=== PATIENT | female | born 1945 | race Caucasian/White ===

== ENCOUNTER → 2016-07-29 | Outpatient (CLI) | payer OTHER ==
[~2016-07-29] MED LIST: B COTAB24 PO; CALCTAB5 PO; LACT1TAB4 PO; LPT10 PO; MULT-16 PO; PARO1TAB27 PO; PRED1SUS17 OP; SALI0.6517 NAE; SODI5OIN4 INSTIL; SULF20PO PO; TRIA37.5 PO; [UNRECOGNIZED DRUG - OTHER] INSTIL
[2016-07-29 13:00] LABS: BLOOD UREA NITROGEN 20 mg/dl (7-18); BUN/CREATININE RATIO 27.6 (10-20); CALCIUM 10.1 mg/dl (8.5-10.1); CARBON DIOXIDE 31 mmol/L (21-32); CHLORIDE 99 mmol/L (98-107); CREATININE 0.74 mg/dl (0.60-1.20); GLUCOSE 98 mg/dl (70-99); POTASSIUM 3.3 mmol/L (3.5-5.1); SODIUM 140 mmol/L (136-145)
[2016-07-29 13:26] LABS: ESTIMATED AVERAGE GLUCOSE 114 mg/dl; HA1C FLAG Normal (Normal)
== END | disposition home or self-care (01) ==
LOC: C.LABPVFM 12:32
PROVIDERS: ATTEND Nurse Practitioner
DX: I10 Essential (primary) hypertension (principal); E11.9 Type 2 diabetes mellitus without complications

== ENCOUNTER → 2017-01-13 | Outpatient (CLI) | payer OTHER ==
[2017-01-13 18:41] LABS: ALT/SGPT 27 U/L (12-78); AST/SGOT 17 U/L (15-37); BLOOD UREA NITROGEN 13 mg/dl (7-18); BUN/CREATININE RATIO 19.4 (10-20); CALCIUM 9.2 mg/dl (8.5-10.1); CARBON DIOXIDE 31 mmol/L (21-32); CHLORIDE 101 mmol/L (98-107); CREATININE 0.69 mg/dl (0.60-1.20); GLUCOSE 105 mg/dl (70-99); POTASSIUM 3.3 mmol/L (3.5-5.1); SODIUM 139 mmol/L (136-145)
[2017-01-13 18:51] LABS: ALB/GLOB RATIO 0.8 (0.9-2); ALKALINE PHOSPHATASE 74 U/L (45-117); CHOLESTEROL 180 mg/dl (0-200); CHOLESTEROL/HDL RATIO 3.2; HDL CHOLESTEROL 56 mg/dl; LDL CHOLESTEROL CALCULATED 95 mg/dl; TRIGLYCERIDES 145 mg/dl (0-150); VERY LOW DENSITY LIPOPROT CALC 29 mg/dl
[2017-01-14 06:44] LABS: ESTIMATED AVERAGE GLUCOSE 111 mg/dl; HA1C FLAG Normal (Normal)
== END | disposition home or self-care (01) ==
LOC: C.LABPVFM 15:51
PROVIDERS: ATTEND Nurse Practitioner
DX: I10 Essential (primary) hypertension (principal); I49.1 Atrial premature depolarization; E11.9 Type 2 diabetes mellitus without complications; E78.5 Hyperlipidemia, unspecified

== ENCOUNTER → 2017-04-14 | Outpatient (CLI) | payer OTHER ==
[2017-04-14 13:05] LABS: BLOOD UREA NITROGEN 14 mg/dl (7-18); BUN/CREATININE RATIO 21.1 (10-20); CALCIUM 9.8 mg/dl (8.5-10.1); CARBON DIOXIDE 33 mmol/L (21-32); CHLORIDE 101 mmol/L (98-107); CREATININE 0.64 mg/dl (0.60-1.20); GLUCOSE 112 mg/dl (70-99); POTASSIUM 3.3 mmol/L (3.5-5.1); SODIUM 138 mmol/L (136-145)
--- NOTE | 2017-04-29 06:59 | CODING QUERY MEDICAL NECESSITY ---
CQSUPPORTING DIAGNOSIS NEEDED A supporting diagnosis is required for the test/procedure performed on this patient in order for us to be reimbursed by the patient's insurance. Please provide a supporting diagnosis for the following test/procedure listed below next to the test name along with your signature. *If there is no additional diagnosis for this patient that would support the following test/procedure please document that below next to the test/procedure. Test(s)/Procedure(s) that require a supporting diagnosis: DOS 04/14/17 VITAMIN D TEST Provider Signature: Date: Thank you Shona Baxter [facility] Information Management Once completed, please kindly fax back to [phone] For questions please call [phone]
== END | disposition home or self-care (01) ==
LOC: C.LABPVFM 10:01
PROVIDERS: ATTEND Nurse Practitioner
DX: E87.6 Hypokalemia (principal); I49.1 Atrial premature depolarization

== ENCOUNTER → 2017-04-15 | Outpatient (CLI) | payer OTHER ==
[2017-04-15 17:49] LABS: URINE APPEARANCE CLEAR (CLEAR); URINE BILIRUBIN NEG (NEG); URINE COLOR YELLOW; URINE EPITHELIAL CELL AUTO 20-30 /lpf (0-5); URINE NITRITE NEG (NEG); URINE SPECIFIC GRAVITY 1.018 (1.000-1.030); UROBILINOGEN NEG (NEG); ZZUR CULT IF INDIC CLEAN CATCH NO
[2017-04-15 17:56] LABS: MANUAL MICROSCOPIC REQUIRED? NO; REVIEW REQ? NO
== END | disposition home or self-care (01) ==
LOC: C.LABPVFM 17:49
PROVIDERS: ATTEND Nurse Practitioner
DX: R32 Unspecified urinary incontinence (principal)

== ENCOUNTER → 2017-07-17 | Outpatient (CLI) | payer OTHER ==
[2017-07-17 13:08] LABS: BLOOD UREA NITROGEN 10 mg/dl (7-18); CALCIUM 9.1 mg/dl (8.5-10.1); CARBON DIOXIDE 29 mmol/L (21-32); GLUCOSE 83 mg/dl (70-99); POTASSIUM 3.8 mmol/L (3.5-5.1); SODIUM 137 mmol/L (136-145)
[2017-07-17 13:22] LABS: CREATININE 0.63 mg/dl (0.60-1.20)
== END | disposition home or self-care (01) ==
LOC: C.LABPVFM 11:11
PROVIDERS: ATTEND Nurse Practitioner
DX: I10 Essential (primary) hypertension (principal); E87.6 Hypokalemia

== ENCOUNTER 2018-11-23 09:47 | Inpatient (IN) ==
[2018-11-23] MEDS ORDERED: SODIUM CHLORIDE 0.9% 500 ML IV SCH (10:15)
[2018-11-23 10:48] LABS: Hemoglobin 12.5 g/dL (12.0-16.0); Mean Corpuscular Hgb Conc 33.8 g/dL (32-36); Mean Corpuscular Volume 96.1 fL (80-100); Mean Platelet Volume 9.5 fL (7.4-10.4); Platelet Count 269 K/uL (130-400); RDW Coefficient of Variation 14.5 % (11.5-14.5); RDW Standard Deviation 50.8 fL (36.4-46.3); Red Blood Count 3.85 M/uL (4.2-5.4); White Blood Count 21.76 K/uL (4.8-10.8)
[2018-11-23] MEDS ORDERED: CEFEPIME 2,000 MG/12.5 ML VIAL IV STA (10:49)
--- NOTE | 2018-11-23 10:50 | CT Scan Report ---
CT head/brain wo con CLINICAL HISTORY: 73 years-old Female with ams. Acutely altered mental status TECHNIQUE: Multiple axial CT images of the head were obtained without contrast. A dose lowering tech nique was utilized adhering to the principles of ALARA. CT DOSE: 720.23 mGy.cm COMPARISON: CT head 11/09/2018. FINDINGS: No acute intracranial hemorrhage, midline shift, intracranial mass, hydrocephalus, territorial ischem ia or abnormal extra-axial collection. Age-related involutional changes. Patchy white matter hypodens ities suggest chronic microvascular ischemic disease. Cerebral vascular calcifications noted. The calvarium is intact. Trace bilateral mastoid effusions. Mild mucosal thickening about the parana nancy sinuses. There is a suggested drusen about the right globe, 4 mm. Prior bilateral cataract repair . IMPRESSION: No acute intracranial abnormality. The above report was generated using voice recognition software. It may contain grammatical, syntax o r spelling errors. Electronically signed by: Aldo Osborne M.D. 11/23/2018 10:49 AM
[2018-11-23 10:51] LABS: iSTAT Creatinine 0.7 mg/dl (0.6-1.3); iSTAT Hemoglobin 12.9 g/dl (12.0-16.0); iSTAT Ionized Calcium 1.16 mmol/l (1.12-1.32); iSTAT Potassium 3.4 mEq/L (3.3-5.0)
--- OUTSIDE RECORDS SUMMARY | 2018-11-23 10:56 | External Medical Summary | Continuity of Care Document ---
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) Diet-controlled diabetes mellitus (250.00) (E11.9) Episodic mood disorder (296.90) (F39) Hyperlipidemia (272.4) (E78.5) Shoulder strain (840.9) (S46.919A) Urinary tract infection, acute (599.0) (N39.0) Encounter for immunization (V03.89) (Z23) Plantar fasciitis (728.71) (M72.2) Urinary incontinence (788.30) (R32) Urinary symptom or sign (788.99) (R39.9) PAC (premature atrial contraction) (427.61) (I49.1) Irregular heart rate (427.9) (I49.9) Dysuria (788.1) (R30.0) Need for pneumococcal vaccination (V03.82) (Z23) Allergic rhinitis (477.9) (J30.9) Hepatitis, B Virus [place] (V02.61) Allergies and Adverse Reactions amlodipine (Allergy) Reaction: Anaphylax is Sulfa Drugs (Allergy) Reaction: Hives Medications Losartan Potassium 25 MG Oral Tablet; ta ke one tablet by mouth daily as directed Alexandria Diehl Start: 16-Nov-2018 Quantity: 30 Refills: 5 Chlorthalidone 25 MG Oral Tablet; TAKE 1 TABLET BY MOUTH ONCE DAILY IN THE MORNING. MELITON Garza Start: 19-Nov-2018 Quantity: 30 Refills: 3 Diclofenac Sodium 1 % Transdermal Gel; A PPLY ONE GRAM OF GEL TOPICALLY 4 TIMES DAILY IF NEEDED FOR foot pain MELITON Garza Start: 23-Apr-2018 Quantity: 1 100 GM Tube Refills: 5 Floranex Oral Tablet; 3 tablets 3 times a day Start: 22-May-2015 Refills: 0 OneTouch Ultra Blue In Vitro Strip; TEST ONCE DAILY. MELITON Garza Start: 15-Mar-2013 Quantity: 1 50 Strip Box Refills: 4 Vitamin B Complex Oral Tablet; Take 1 tablet twice daily Start: 07-Dec-2014 Refills: 0 Multivital [place] TABS Start: 015 Refills: 0 Calcium 600 MG Oral Tablet; Take 1 tablet twice daily Start: 07-Dec-2014 Refills: 0 Diclofenac Sodium 1 % Transdermal Gel; A PPLY ONE GRAM OF GEL TOPICALLY 4 TIMES DAILY IF NEEDED FOR SHOULDER PAIN MELITON Garza Start: 14-Oct-2018 Quantity: 1 100 GM Tube Refills: 2 PARoxetine HCl - 20 MG Oral Tablet; TAKE 1 TABLET BY OUT ONCE DAILY. MELITON Garza Start: 22-Nov-2018 Quantity: 30 Refills: 5 Atorvastatin Calcium 10 MG Oral Tablet; TAKE 1 TABLET BY MOUTH ONCE DAILY. MELITON Garza Start: 31-Dec-2011 Quantity: 90 Refills: 1 prednisoLONE Acetate 1 % Ophthalmic Suspension; 1 drop right eye 4 times a day Start: 12-Jan-2018 Refills: 0 5 ML Bottle Pilocarpine HCl - 4 % Ophthalmic Solution; 1 dropp right eye twice a day Start: 12-Jan-2018 Refills: 0 15 ML Bottle Procedures Need for pneumococcal vaccination Immunizations DT On: 12-Apr-2007 PPD On: 27-Dec-2012 9:52 Lot #: [id number], [employer] Zostavax 99946 UNT/0.65ML Subcutaneous Solution Recons tituted On: 27-Dec-2012 9:53 Lot #: [id number], [employer] Influenza On: 27-Jun-2013 9:47 Lot #: [id number], [employer] PPD On: 26-Dec-2013 16:49 Lot #: [id number], [employer] Fluzone Quadrivalent Intramuscular Suspension On: 4 8:36 Lot #: [id number], [employer] Pneumococcal polysaccharide vaccine, 23 valent On: 07-Jul-20 14 11:33 Lot #: [id number], [employer] PPD On: 07-Dec-2014 8:59 Lot #: [id number], [employer] Prevnar 13 Intramuscular Suspension On: 22-May-2015 8:50 Lot #: [id number], [employer] Fluzone High-Dose Intramuscular Suspension On: 22-May-2015 8 :54 Lot #: [id number], [employer] Fluzone High-Dose Intramuscular Suspension On: 29-Jul-2016 10 :26 Lot #: [id number], [employer] Tubersol 5 UNIT/0.1ML Intradermal Solution On: 13-Jan-2017 1 5:54 Lot #: [id number], [employer] Fluzone High-Dose Intramuscular Suspension On: 14-Apr-2017 1 1:51 Lot #: [id number], [employer] Tdap (Adacel) On: 28-Jan-2018 15:10 Lot #: [id number], [employer] Fluzone High-Dose Intramuscular Suspension On: 23-Apr-2018 1 0:02 Lot #: [id number], [employer] Social History - Smoking Status Never smoker Plan of Treatment Planned Encounters Appointment; Lenin Garza CRNP Start: 21-Dec-2018 11:00 Request Planned Observations Planned Goals not documented Results X-Ray Chest 1 View Portable (Pending) Laboratory: [facility] Diagnostic Imaging [address] [facility] 09-Nov-2018 13:44 X-Ray Chest 1 VW Portable (CXR1P) [facility], [place] [phone] XRay Report Patien t: NICOL GTZ Admit Date: 9 MR#: [id number] Address1: [address] [place] [address] Acct ID:[id number] Addres s2: [address] Date: 1945 [facility] Zip: [place] [address] Age: 73 Location: ED Sex: F Room/Bed: Att Phy: Diagnosis: SWITCHED BP MEDS,SWOLLE N FACE,LABORED BREATHING Tammi Phy: Lenin Garza CRNP Service Chris e: 11/09/18 Fam Phy: Interpreting Phy: Rachel Maurice MD Admit Phy: Ordering Phy: Cheko Ribera M.D. cc: XR chest 1V portable CLINICAL HISTORY: increase d WOB dyspnea COMPARISON STUDY: 07/15/20 15 FINDINGS: Poor respiratory volumes. Mi ld cardiomegaly. Prominent pulmonary vasculature. IMPRESSION: Mild congestive failure The above report was generated using voice recognition software. It may contain grammatical, syntax or spelling errors. Electronically signed by: Bari Maurice M.D. 11/09/2018 1:45 PM Dictated: 11/09/18 1344 Transcrib ed: 11/09/[address] Head w/o Contrast (Pending) Laboratory: [facility] Diagnostic Imaging [address] [facility] 09-Nov-2018 14:10 CT HEAD WITHOUT CONTRAST [facility], [place] CT Scan Report Patient: EFRAIN GTZ Admit Date: 9 MR#: [id number] Address1: [address] [facility] Acct ID:[id number] Address2: [address] Date: [address] [place] [address] Zip: [place] [address] Age: 73 Location: ED Sex: F Room/Bed : Att Phy: Diagnos is: SWITCHED BP MEDS,SWOLLE N FACE,LABORED BREATHING Tammi Phy: Lenin Asencio CRNP Service Chris e : 11/09/18 [facility] Phy: Interpreting Phy: Bari Maurice MD Admit Phy: Ordering Phy: Cheko Dukes M.D. cc: CT head/brain wo con CT DOSE : 1074.96 mGy.cm HISTORY: Trauma. Men cynthia status change. fall TECHNIQUE: Multiaxial CT images of the h ead were performed without the use of intrav enous contrast. A dose lowering technique was utilized adhering to the principles of A CIRILO. Comparison: None. Findings: Moderate mucosal thickening of the sinus es. The calvarium and skull base are intact. The ventricles and sulci are within normal limits. There is no mass, hematoma, midl ine shift, or acute infarct. Moderate chroni c small vessel change. Mild age-related atrophy. No evidence for acute intracran ial hemorrhage. Impression: No acute intracranial abnormality. Chronic and age-related change. Moderate mucosal thickening of the sinuses. The above report was generated using VMob ce recognition software. It may contain grammatical, syntax or spelling errors. Electronically signed by: Bari gotti M.D. 11/09/2018 2:12 PM Dictat ed: 11/09/18 1410 Transcribed: 1410 Vital Signs 16-Nov-2018 8:58 Systolic 161 mm[Hg] Diastolic 121 mm[Hg] BMI Calculated 30.73 kg/m2 Weight 152.125 lb BSA Calculated 1.64 m2 Heart Rate 130 /min Temperature 97.5 f 04-Nov-2018 10:08 Systolic 160 mm[Hg] Diastolic 109 mm[Hg] O2 Saturation 97 % 04-Nov-2018 9:53 Systolic 162 mm[Hg] Diastolic 123 mm[Hg] BMI Calculated 27.47 kg/m2 Weight 136 lb BSA Calculated 1.57 m2 Heart Rate 130 /min Respiration 16 /min Encounters Appointment; Jenn Diehl M.D. 16-Nov-2018 9:00 Encounter Diagnosis: Problem not documented Appointment; Lenin Garza CRNP 04-Nov-2018 10:00 Encounter Diagnosis: Problem not documented Appointment; Lenin Garza CRNP 14-Oct-2018 14:00 Encounter Diagnosis: Problem not documented Appointment; Lenin Garza CRNP 07-Oct-2018 11:30 Encounter Diagnosis: Problem not documented Appointment; Lenin Garza CRNP 30-Sep-2018 8:30 Encounter Diagnosis: Problem not documented Appointment; Lenin Garza CRNP 05-Aug-2018 9:30 Encounter Diagnosis: Problem not documented Appointment; Lenin Garza CRNP 23-Apr-2018 9:30 Encounter Diagnosis: Problem not documented Appointment; Lenin Garza CRNP 01-Feb-2018 11:45 Encounter Diagnosis: Problem not documented Appointment; Nurse Laci 28-Jan-2018 15:00 Encounter Diagnosis: Problem not documented Appointment; Lenin Garza CRNP 12-Jan-2018 15:30 Encounter Diagnosis: Problem not documented Appointment; Lenin Garza CRNP 27-Oct-2017 9:30 Encounter Diagnosis: Problem not documented Appointment; Lenin Garza CRNP 17-Jul-2017 11:00 Encounter Diagnosis: Problem not documented Appointment; Lenin Garza CRNP 14-Apr-2017 9:30 Encounter Diagnosis: Problem not documented Appointment; Nurse Laci 15-Jan-2017 10:45 Encounter Diagnosis: Problem not documented Appointment; Lenin Garza CRNP 13-Jan-2017 15:00 Encounter Diagnosis: Problem not documented Appointment; Lenin Garza CRNP 21-Dec-2018 11:00 Encounter Diagnosis: Problem not documented
[2018-11-23 10:57] LABS: INR 1.2 (0.9-1.1); Prothrombin Time 11.9 Seconds (9.0-12.0)
[2018-11-23 10:59] LABS: D Dimer 2410 ug/L FEU (0-500)
[2018-11-23 11:06] LABS: Alanine Aminotransferase 76 U/L (12-78); Albumin Level 2.9 gm/dl (3.4-5.0); Aspartate Aminotransferase 31 U/L (15-37); BUN Creatinine Ratio 25.6 (10-20); Blood Urea Nitrogen 17 mg/dl (7-18); Calcium 8.6 mg/dl (8.5-10.1); Carbon Dioxide 34 mmol/L (21-32); Chloride 95 mmol/L (98-107); Est GFR (African American) 99.9; Est GFR (Non-African American) 86.2; Glucose 153 mg/dl (70-99); Magnesium 1.8 mg/dl (1.8-2.4); Potassium 3.4 mmol/L (3.5-5.1); Sodium 133 mmol/L (136-145)
[2018-11-23 11:18] LABS: Albumin Globulin Ratio 0.9 (0.9-2); Alkaline Phosphatase 67 U/L (45-117); Bilirubin,Total 0.8 mg/dl (0.2-1); Globulin 3.1 gm/dl (2.5-4.0); NT Pro B Type Natriuretic Pept 9841 pg/ml (0-900); Troponin I 0.114 ng/ml (0-0.045)
[2018-11-23 11:29] LABS: Eosinophils # (auto) 0.01 K/uL (0-0.5); Immature Granulocytes # (auto) 0.07 K/uL (0.00-0.02); Immature Granulocytes % (auto) 0.3 %; Lymphocytes # (auto) 0.81 K/uL (1.2-3.4); Lymphocytes % (auto) 3.7 %; Monocytes # (auto) 0.77 K/uL (0.11-0.59); Monocytes % (auto) 3.5 %; Neutrophils % (auto) 92.5 %
--- NOTE | 2018-11-23 11:36 | Ultrasound Report ---
BILATERAL LOWER EXTREMITY VENOUS DOPPLER CLINICAL HISTORY: swelling COMPARISON STUDY: No previous studies for comparison. TECHNIQUE: Sonography of the deep venous system of the bilateral lower extremities was performed. Co mpression and augmentation were evaluated. FINDINGS: The bilateral common femoral, superficial femoral and popliteal veins were compressible. A ugmentation was normal. Flow was shown within the deep calf vessels. No extremity edema was noted. IMPRESSION: No evidence of deep venous thrombus within the bilateral lower extremities. Electronically signed by: Venkata Aleman M.D. 11/23/2018 11:35 AM
--- NOTE | 2018-11-23 11:59 | XRay Report ---
SINGLE VIEW CHEST CLINICAL HISTORY: Generalized weakness. FINDINGS: An AP, portable, upright chest radiograph is compared to study dated 11/09/2018. The examina tion is degraded by portable technique and patient rotation. The heart is enlarged and there is athe rosclerotic calcification of the thoracic aorta. There is pulmonary vascular congestion and interstit ial edema. There are layering pleural effusions with bibasilar consolidation. No pneumothorax is seen . The skeletal structures are osteopenic. The bony thorax is grossly intact. IMPRESSION: 1. Cardiomegaly with evidence of congestive failure and interstitial edema. 2. Small pleural effusions with bibasilar consolidation. Electronically signed by: Bong Lozano M.D. 11/23/2018 11:58 AM
--- NOTE | 2018-11-23 12:02 | XRay Report ---
XR knee LT 3V CLINICAL HISTORY: contusion, swelling COMPARISON: None FINDINGS: Alignment of the left knee is anatomic. There is no acute fracture. There is a trace left knee joint effusion. Moderate osteophytosis of the left knee is noted without significant joint space narrowing. Edema of the left leg is noted. IMPRESSION: 1. No acute fracture. 2. Moderate left knee osteophytosis. 3. Diffuse soft tissue swelling/edema. Electronically signed by: Venkata Aleman M.D. 11/23/2018 12:01 PM
[2018-11-23] MEDS ORDERED: OPTIRAY 320 125ml IV PRN (12:09)
--- NOTE | 2018-11-23 12:21 | CT Scan Report ---
CT ANGIOGRAPHY OF THE CHEST, PULMONARY EMBOLUS PROTOCOL CLINICAL HISTORY: PE, hypoxia, SOB COMPARISON STUDY: Chest radiographs November 09, 2018 and November 23, 2018. TECHNIQUE: Following IV administration of 119 mL of Optiray-320, helical axial images of the chest we re obtained utilizing the pulmonary embolus protocol. Maximal intensity projections and sagittal and coronal reformats were viewed on an independent 3D workstation. IV contrast was administered withou t complication. Automated exposure control was utilized for the study. A dose lowering technique wa s utilized adhering to the principles of ALARA. CT DOSE: 1736.82 mGy.cm FINDINGS: No pulmonary emboli are identified although the lower lobe pulmonary arteries are suboptim ally assessed due to respiratory motion. The heart is moderately enlarged. There is no pericardial ef fusion. Mild dilatation of the ascending aorta, measuring 4.1 cm is noted. There is no thoracic adeno polly. There is generalized anasarca. Moderate to large left and moderate right pleural effusions are noted with associated atelectasis. There is no pneumothorax. Central airways are patent. No consolid ation is identified. There is suspected mild interstitial pulmonary edema. Old rib and thoracic spine fractures are noted. Abdomen and pelvis will be reported separately. IMPRESSION: 1. No pulmonary emboli identified although lower lobe pulmonary arteries suboptimally assessed due to respiratory motion. 2. Moderate to large left and moderate right pleural effusions. Anasarca. 3. Mild pulmonary edema. 4. Moderate cardiomegaly and mild dilatation of the ascending aorta. Electronically signed by: Venkata Aleman M.D. 11/23/2018 12:20 PM
--- NOTE | 2018-11-23 12:28 | CT Scan Report ---
CT OF THE ABDOMEN AND PELVIS WITH CONTRAST CLINICAL HISTORY: weakness, ?infection COMPARISON STUDY: None. TECHNIQUE: Following IV administration of 119 mL of Optiray-320, axial images of the abdomen and pelv is were obtained from the lung bases to the proximal femurs. Images were reviewed in the axial, sagit cynthia, and coronal planes. IV contrast was administered without complication. Automated exposure contr ol was utilized for the study. A dose lowering technique was utilized adhering to the principles of ALARA. FINDINGS: Please note that the chest CT will be reported separately. Moderate to large left and moder ate right pleural effusions are noted with cardiomegaly and anasarca. Exam is mildly compromised by m otion artifact. No pneumatosis, free air or portal venous gas is present. The liver, spleen, adrenal glands, kidneys and pancreas are unremarkable. There is no biliary or pancreatic ductal dilatation. T here is no hydronephrosis. There is no evidence for a bowel obstruction. Several bladder diverticula are noted. Colonic diverticulosis is present without evidence for acute diverticulitis. The appendix is not visualized. Old L2 compression fracture is incidentally noted. IMPRESSION: 1. Anasarca with moderate to large left and moderate right pleural effusions. 2. No acute process within the abdomen or pelvis. 3. Colonic diverticulosis without evidence for acute diverticulitis. 4. No bowel obstruction. Electronically signed by: Venkata Aleman M.D. 11/23/2018 12:26 PM
[2018-11-23] MEDS ORDERED: FUROSEMIDE 40 MG/4 ML VIAL IV STA (12:30)
[2018-11-23 13:19] LABS: Appearance Urine Clear (Clear); Bacteria Urine Automated Negative (Negative); Bilirubin Urine Negative (Negative); Blood Urine Negative (Negative); Color Urine Dark Yellow; Glucose Urine UA Negative (Negative); Ketones Urine Trace (Negative); Leukocyte Esterase Urine Negative (Negative); Nitrite Urine Negative (Negative); Protein Urine 2+ (Negative); RBC Urine Automated 0-4 /hpf (0-4); Specific Gravity Urine 1.029 (1.000-1.030); Urobilinogen Urine Negative (Negative); pH Urine 5.5 (4.5-7.5)
--- NOTE | 2018-11-23 13:38 | History & Physical Report ---
Date of Service November 23, 2018 Assessment & Plan (1) Hypertension: (2) Acute respiratory failure with hypoxia: Patient is acute respiratory failure with hypoxia likely based upon pulmonary edema seen and also influenced by bilateral pleural effusions. Patient given intravenous Lasix 40 mg in the emergency department and is being maintained it twice daily. Etiology of her pleural fluid to be undertaken by evaluating her for congestive heart failure as noted below Given the description of anasarca other etiologies rather than systolic failure could be undertaken. The patient does snore a lot in the evening although the caregiver states she does not stop breathing when she sleeps perhaps some sleep apnea could be involved with her fluid retention. She is also really with mild to moderate protein malnutrition which could also lead to body swelling. (3) Congestive heart failure: Patient be evaluated for congestive heart failure by echocardiogram, we cannot determine the etiology of her heart failure upon presentation whether systolic or diastolic at this time, she will continue her Lasix twice daily losartan 25 and the amlodipine. Also add a beta-cherry given her elevation of her troponin holding her chlorthalidone She will be on a low-sodium diet fluid restriction of 1800 mL's (4) Hypertensive urgency: Blood pressure is elevated on presentation we will continue to control her blood pressure with amlodipine losartan and metoprolol tartrate (5) Elevated troponin: Patient's elevation of her troponin is likely supply demand mismatch from hypertensive urgency. There are no acute current of injury on her EKG we will trend troponins. I do not believe this is an end STEMI she will be formally anticoagulated this time (6) Hypokalemia: This will be augmented orally with the expectation that she will continue her challenges as we are diuresing her magnesium will be checked in a.m. (7) Leukocytosis: This is of undetermined etiology the patient was given intravenous cefepime in the ED currently she is not exhibiting any physical signs of infection at this time so antibiotics would not be continued (8) DVT prophylaxis: Lovenox will be used for DVT prevention (9) Contusion of left knee: Etiology of her left knee contusion is undetermined there is no x-ray or fracture but she has arthritic change. Use topical ice and Tylenol for pain control at this point in time (10) Mental retardation: Patient is been [place] reportedly the caregiver to get POA information would be Misty Segal, . Her local pillowcase sewer is Sierra Alexander [phone], I informed Ms. Alexander of the patient's admission and likely need for some concern peripheral procedures in the future she said she would inform MsAlex Segal and she will be aware if any calls need to be made regarding consent History of Present Illness Primary Care Provider: MELITON Heath 73-year-old intellectually challenged wart of the [facility] cared for by caregivers 24 hours a day. ER few days ago with a diffuse rash of undetermined etiology was given prednisone therapy. Patient's been having challenges controlling her blood pressure as an outpatient. Caregivers have been measuring her blood pressure and found to be markedly elevated today. She presents to the ER today she is nonverbal which is her typical state she is mostly blind. The patient has hypoxia on presentation evidence of heart failure on chest x-ray and unknown determined etiology of the left knee injury with negative x-rays for fracture bilateral pleural effusions and anasarca seen on CT scans. Patient stabilized with intravenous Lasix and supplementation of oxygen. Her caregiver many years at the bedside and says she looks to be less distressed than she was at home. She also feels that her rash is improved with administration of oral prednisone therapy at home Allergies Allergy/AdvReac Type Severity Reaction Status Date / Time Sulfa (Sulfonamide AdvReac Unknown Unknown Unverified 11/23/18 10:33 Antibiotics) Chlorine Allergy Mild UNKNOWN Uncoded 11/23/18 10:33 Home Medications Home Medications Medication Instructions Recorded Confirmed Type Calcium Posture D 1 tab PO BID 11/23/18 11/23/18 History Lisinopril-Amlodipine 1 tab PO QAM 11/23/18 11/23/18 History Probiotic Acidophilus 16 Bill 1 tab PO QAM 11/23/18 11/23/18 History atorvastatin 10 mg PO QAM 11/23/18 11/23/18 History chlorthalidone 25 mg PO QAM 11/23/18 11/23/18 History losartan 25 mg PO QAM 11/23/18 11/23/18 History multivitamin 1 tab PO QAM 11/23/18 11/23/18 History paroxetine HCl 20 mg PO PM 11/23/18 11/23/18 History pilocarpine HCl 1 drp OPR BID 11/23/18 11/23/18 History prednisolone acetate (PF) 1 drp OPR BID 11/23/18 11/23/18 History prednisone 20 mg PO UD 11/23/18 11/23/18 History sodium chloride [Pamela 128] 1 drp OPHTHALMIC (EYE) BID 11/23/18 11/23/18 History sodium chloride [[place] Nasal] 2 spray INTRANASAL BID 11/23/18 11/23/18 History vitamin B comp and C no.3 1 cap PO BID 11/23/18 11/23/18 History Past Med/Surg History Medical History Mental retardation (Chronic) Blind Hypertension Nonverbal Family History Other Family history non-contributory Social History Preferred Language: Thai marital status: Single current occupational status: unemployed and disabled Feels Safe at Home: Yes Smoking Status: Never smoker Review of Systems Review of Systems: Unobtainable due to cognitive status Caregiver states the patient had no problems eating toileting or bowel movement obrien except for some mild constipation. Other than that she is fairly nonverbal she was short of breath which is now improved Physical Exam Physical Exam: The patient appeared well nourished and normally developed. She appears in mild distress Vital signs as documented. Marked blood pressure elevation Head exam is unremarkable. normocephalic, atraumatic patient has cloudy cornea with eyes deviated and disconjugate Neck is without jugular venous distension but she is a short thick neck and is difficult to see JVD in this patient, thyromegaly, or lymphademopathy Lungs are diminished at both bases left greater than right rales just above the diminished breath sounds Cardiac exam reveals Rhythm is regular. No loud murmurs are heard first and second heart sounds normal. Abdominal exam reveals normal bowel sounds, no masses, no organomegaly is slightly uncomfortable to exam Extremities are mildly edematous and both pedal pulses are present there is contusion to her left knee which is tender to examination Neurologic exam is is arousable and nods her head during conversation she follows some commands Skin is warm Dry there are healing abrasions to her lower legs Results & Data Vital Signs (Past 12 Hours) Vital Signs Pulse Resp BP Pulse Ox 11/23/18 12:10 114 H 28 H 97 11/23/18 12:09 116 H 13 94 11/23/18 11:50 115 H 21 99 11/23/18 11:40 116 H 28 H 100 11/23/18 11:31 117 H 20 173/129 H 100 11/23/18 11:30 105 H 32 H 99 11/23/18 11:27 110 H 12 99 11/23/18 11:00 118 H 21 100 11/23/18 10:56 109 H 29 H 144/122 H 100 11/23/18 10:50 114 H 23 100 11/23/18 10:48 117 H 21 162/118 H 100 11/23/18 10:45 104 H 21 99 11/23/18 10:20 115 H 22 100 11/23/18 10:10 111 H 23 100 11/23/18 10:05 105 H 33 H 100 11/23/18 10:02 20 95 11/23/18 09:56 111 H 20 87 L 11/23/18 09:54 107 H 28 H 141/111 H 100 11/23/18 09:35 87 L Diagnostic Findings Chest x-ray shows cardiomegaly with congestive failure and interstitial edema with bilateral effusions Chest CT is negative for pulmonary embolisms with moderate to large left and right pleural effusions and body wall anasarca with looks to be pulmonary edema cardiomegaly and mild dilatation of the ascending aorta measured to be 4.[address] of the abdomen and pelvis shows anasarca no overt problems to liver spleen adrenal glands kidneys or pancreas are noted no biliary dilatation or pancreatic dilatation no hydronephrosis diverticulosis without diverticulitis and old L2 compression fracture CT head is unremarkable Left knee x-ray shows moderate ostial phytosis with soft tissue swelling
[2018-11-23] MEDS ORDERED: ONDANSETRON INJ 2 MG/ML 2 ML VIAL IV PRN (14:50)
[2018-11-23] MEDS ORDERED: NITROGLYCERIN SL 0.4 MG/TAB TAB SL PRN (14:50)
[2018-11-23] MEDS ORDERED: ACETAMINOPHEN 325 MG TAB PO PRN (14:50)
[2018-11-23] MEDS ORDERED: ALUMINUM/MAGNESIUM SUSP 30 ML UDC PO PRN (14:50)
--- NOTE | 2018-11-23 14:52 | Emergency Department Note ---
Entered by Valerie Aleman acting as a scribe for Syed Chen M.D. History of Present Illness General Chief complaint: Lethargic Source: EMS and other (cartridge loader) Mode of arrival: EMS History of Present Illness Onset (ago): week(s) 1 Location: head Pain Consistency: + other (persistent) Quality: + other (lethargy) Relieved By: not by rest Associated symptoms: + denies other symptoms (fall) and + other (skin feels cold to touch, bilateral swelling of the legs and feet, bruising to upper left leg); no fever/chills (fever) The patient is a 73 year old female that is presenting to the Emergency Room with complaints of persistent lethargy that has worsened over the past week. The patient is non-responsive and non-verbal so the patients cartridge loader provided the history of the present illness. The cartridge loader reports that the patient has recently changed blood pressure medications to Losartan from Lisinopril and was noted to have swelling in her bilateral legs. Her cartridge loader states that the patient was started on diuretics to help relieve the swelling, but the cartridge loader notes that the swelling has worsened. Her cartridge loader reports that the patients left upper leg has become purple/black over the past day. Her cartridge loader notes that the patient has become much more lethargic since her other symptoms began and now wants to sleep most of the day. The cartridge loader states that the patient is not particularly active at baseline but that the patient is usually able to move around more than she currently is. The cartridge loader reports that the patients breathing started to get heavier on the way to the Emergency Room so she called EMS to get the patient. Her cartridge loader denies that the patient has fallen recently or has had a fever. The cartridge loader states that the patient has felt cold to the touch. Her cartridge loader reports that the patient has not been indicating that she is any distress. The cartridge loader notes that the patient has not wanted to attend [facility] [place] [facility] recently as she has been too tired. The cartridge loader states that the patient drank an Ensure this morning. Her cartridge loader reports that the patient has scratched open several wounds on her lower legs. The cartridge loader notes that the patients legs and feet are not normally swollen at baseline. HPI and ROS limited as the patient is blind, unresponsive, and non-verbal. Home Medications Home Medications Medication Instructions Recorded Confirmed Type Calcium Posture D 1 tab PO BID 11/23/18 11/23/18 History Lisinopril-Amlodipine 1 tab PO QAM 11/23/18 11/23/18 History Probiotic Acidophilus 16 Bill 1 tab PO QAM 11/23/18 11/23/18 History atorvastatin 10 mg PO QAM 11/23/18 11/23/18 History chlorthalidone 25 mg PO QAM 11/23/18 11/23/18 History losartan 25 mg PO QAM 11/23/18 11/23/18 History multivitamin 1 tab PO QAM 11/23/18 11/23/18 History paroxetine HCl 20 mg PO PM 11/23/18 11/23/18 History pilocarpine HCl 1 drp OPR BID 11/23/18 11/23/18 History prednisolone acetate (PF) 1 drp OPR BID 11/23/18 11/23/18 History prednisone 20 mg PO UD 11/23/18 11/23/18 History sodium chloride [Pamela 128] 1 drp OPHTHALMIC (EYE) BID 11/23/18 11/23/18 History sodium chloride [Dukes Nasal] 2 spray INTRANASAL BID 11/23/18 11/23/18 History vitamin B comp and C no.3 1 cap PO BID 11/23/18 11/23/18 History Allergies Allergy/AdvReac Type Severity Reaction Status Date / Time Sulfa (Sulfonamide AdvReac Unknown Unknown Unverified 11/23/18 10:33 Antibiotics) Chlorine Allergy Mild UNKNOWN Uncoded 11/23/18 10:33 Past Med/Surg History Medical History Mental retardation (Chronic) Blind Hypertension Nonverbal Family History Other Family history non-contributory Social History Preferred Language: Romanian Communication Ability: blind Communication Ability Comment: mentally challenged Combine Mechanic Required: No Beliefs That Will Affect Care: None marital status: Single Current Living Situation: Legal Guardian current occupational status: unemployed and disabled Other Information That Helps Us Care for You: No Feels Safe at Home: Yes Safety Concerns: Feels Safe At This Time Smoking Status: Never smoker Do You Dip or Chew Tobacco: No Second Hand Exposure: No Tobacco Cessation Education Requested by Patient: No Hx Alcohol Use: No Hx Substance Use: No Review of Systems See HPI for pertinent positives & negatives. The HPI and ROS are limited because the patient is blind, non-verbal, and non- responsive. Physical Exam Vital Signs Vital Signs - 24 hr 11/23/18 09:35 11/23/18 09:54 11/23/18 09:56 Sepsis Recent Fever Within 48 Hours No Sepsis New/Unexplained Change in Mental Status Yes Sepsis Action Taken by Nursing No Action Required Pulse Rate 107 H 111 H Pulse Rate from SpO2 Sensor 107 H Pulse Rhythm Regular Pulse Strength Normal Respiratory Rate 28 H 20 Respiratory Effort / Characteristics Non-Labored Spontaneous Respiratory Depth Normal Respiratory Pattern Regular Blood Pressure 141/111 H Blood Pressure Mean 121 Pulse Oximetry 87 L 100 87 L Oxygen Delivery Method Room Air Room Air Oxygen Flow Rate 11/23/18 10:02 11/23/18 10:05 11/23/18 10:10 Sepsis Recent Fever Within 48 Hours Sepsis New/Unexplained Change in Mental Status Sepsis Action Taken by Nursing Pulse Rate 105 H 111 H Pulse Rate from SpO2 Sensor 106 H 111 H Pulse Rhythm Pulse Strength Respiratory Rate 20 33 H 23 Respiratory Effort / Characteristics Respiratory Depth Respiratory Pattern Blood Pressure Blood Pressure Mean Pulse Oximetry 95 100 100 Oxygen Delivery Method Room Air Oxygen Flow Rate 2 11/23/18 10:20 11/23/18 10:45 11/23/18 10:48 Sepsis Recent Fever Within 48 Hours Sepsis New/Unexplained Change in Mental Status Sepsis Action Taken by Nursing Pulse Rate 115 H 104 H 117 H Pulse Rate from SpO2 Sensor 113 H 108 H 115 H Pulse Rhythm Pulse Strength Respiratory Rate 22 21 21 Respiratory Effort / Characteristics Respiratory Depth Respiratory Pattern Blood Pressure 162/118 H Blood Pressure Mean 132 Pulse Oximetry 100 99 100 Oxygen Delivery Method Oxygen Flow Rate 11/23/18 10:50 11/23/18 10:56 11/23/18 11:00 Sepsis Recent Fever Within 48 Hours Sepsis New/Unexplained Change in Mental Status Sepsis Action Taken by Nursing Pulse Rate 114 H 109 H 118 H Pulse Rate from SpO2 Sensor 115 H 108 H 116 H Pulse Rhythm Pulse Strength Respiratory Rate 23 29 H 21 Respiratory Effort / Characteristics Respiratory Depth Respiratory Pattern Blood Pressure 144/122 H Blood Pressure Mean 129 Pulse Oximetry 100 100 100 Oxygen Delivery Method Oxygen Flow Rate 11/23/18 11:27 11/23/18 11:30 11/23/18 11:31 Sepsis Recent Fever Within 48 Hours Sepsis New/Unexplained Change in Mental Status Sepsis Action Taken by Nursing Pulse Rate 110 H 105 H 117 H Pulse Rate from SpO2 Sensor 106 H 107 H 118 H Pulse Rhythm Pulse Strength Respiratory Rate 12 32 H 20 Respiratory Effort / Characteristics Respiratory Depth Respiratory Pattern Blood Pressure 173/129 H Blood Pressure Mean 143 Pulse Oximetry 99 99 100 Oxygen Delivery Method Oxygen Flow Rate 11/23/18 11:40 11/23/18 11:50 11/23/18 12:09 Sepsis Recent Fever Within 48 Hours Sepsis New/Unexplained Change in Mental Status Sepsis Action Taken by Nursing Pulse Rate 116 H 115 H 116 H Pulse Rate from SpO2 Sensor 116 H 116 H 115 H Pulse Rhythm Pulse Strength Respiratory Rate 28 H 21 13 Respiratory Effort / Characteristics Respiratory Depth Respiratory Pattern Blood Pressure Blood Pressure Mean Pulse Oximetry 100 99 94 Oxygen Delivery Method Oxygen Flow Rate 11/23/18 12:10 11/23/18 12:20 11/23/18 12:25 Sepsis Recent Fever Within 48 Hours Sepsis New/Unexplained Change in Mental Status Sepsis Action Taken by Nursing Pulse Rate 114 H 117 H 112 H Pulse Rate from SpO2 Sensor 116 H 117 H 115 H Pulse Rhythm Pulse Strength Respiratory Rate 28 H 17 29 H Respiratory Effort / Characteristics Respiratory Depth Respiratory Pattern Blood Pressure 155/123 H Blood Pressure Mean 133 Pulse Oximetry 97 99 98 Oxygen Delivery Method Oxygen Flow Rate 11/23/18 12:30 11/23/18 12:31 11/23/18 12:40 Sepsis Recent Fever Within 48 Hours Sepsis New/Unexplained Change in Mental Status Sepsis Action Taken by Nursing Pulse Rate 112 H 112 H 115 H Pulse Rate from SpO2 Sensor 112 H 113 H 115 H Pulse Rhythm Pulse Strength Respiratory Rate 20 28 H 40 H Respiratory Effort / Characteristics Respiratory Depth Respiratory Pattern Blood Pressure 172/124 H Blood Pressure Mean 140 Pulse Oximetry 98 98 100 Oxygen Delivery Method Oxygen Flow Rate 11/23/18 12:50 11/23/18 13:00 11/23/18 13:01 Sepsis Recent Fever Within 48 Hours Sepsis New/Unexplained Change in Mental Status Sepsis Action Taken by Nursing Pulse Rate 117 H 107 H 115 H Pulse Rate from SpO2 Sensor 117 H 107 H 116 H Pulse Rhythm Pulse Strength Respiratory Rate 27 H 16 16 Respiratory Effort / Characteristics Respiratory Depth Respiratory Pattern Blood Pressure 165/124 H Blood Pressure Mean 137 Pulse Oximetry 100 100 100 Oxygen Delivery Method Oxygen Flow Rate 11/23/18 13:10 11/23/18 13:20 04/30/19 13:30 Sepsis Recent Fever Within 48 Hours Sepsis New/Unexplained Change in Mental Status Sepsis Action Taken by Nursing Pulse Rate 112 H 103 H 112 H Pulse Rate from SpO2 Sensor 111 H 103 H 113 H Pulse Rhythm Pulse Strength Respiratory Rate 16 17 24 Respiratory Effort / Characteristics Respiratory Depth Respiratory Pattern Blood Pressure Blood Pressure Mean Pulse Oximetry 100 98 100 Oxygen Delivery Method Oxygen Flow Rate 11/23/18 13:31 11/23/18 13:40 11/23/18 13:49 Sepsis Recent Fever Within 48 Hours Sepsis New/Unexplained Change in Mental Status Sepsis Action Taken by Nursing Pulse Rate 106 H 107 H Pulse Rate from SpO2 Sensor 107 H 109 H Pulse Rhythm Pulse Strength Respiratory Rate 25 H 20 Respiratory Effort / Characteristics Spontaneous SOB on Exertion Respiratory Depth Normal Respiratory Pattern Tachypnea Blood Pressure 174/121 H Blood Pressure Mean 138 Pulse Oximetry 99 98 Oxygen Delivery Method Nasal Cannula Oxygen Flow Rate 2 11/23/18 13:50 11/23/18 14:00 11/23/18 14:01 Sepsis Recent Fever Within 48 Hours Sepsis New/Unexplained Change in Mental Status Sepsis Action Taken by Nursing Pulse Rate 110 H 103 H 116 H Pulse Rate from SpO2 Sensor 114 H 105 H 116 H Pulse Rhythm Pulse Strength Respiratory Rate 25 H 24 21 Respiratory Effort / Characteristics Respiratory Depth Respiratory Pattern Blood Pressure 157/114 H Blood Pressure Mean 128 Pulse Oximetry 100 100 100 Oxygen Delivery Method Oxygen Flow Rate 11/23/18 14:10 11/23/18 14:12 11/23/18 14:20 Sepsis Recent Fever Within 48 Hours Sepsis New/Unexplained Change in Mental Status Sepsis Action Taken by Nursing Pulse Rate 105 H 105 H 113 H Pulse Rate from SpO2 Sensor 108 H 106 H 111 H Pulse Rhythm Pulse Strength Respiratory Rate 20 20 21 Respiratory Effort / Characteristics Respiratory Depth Respiratory Pattern Blood Pressure 156/112 H Blood Pressure Mean 126 Pulse Oximetry 100 99 100 Oxygen Delivery Method Oxygen Flow Rate GENERAL: Patient is non-verbal. On nasal cannula. Moves to verbal stimuli. HENT: Normocephalic, atraumatic. EYES: Normal conjunctiva. Sclera non-icteric. Bilateral corneal opacifications. NECK: Supple. No nuchal rigidity. RESPIRATORY: Slight increase in respiratory effort. Diminished lung bases. CARDIAC: Normal rate. Normal rhythm. Extremities warm and well perfused. GI: Soft, non-distended. No tenderness to palpation. No rebound or guarding. No masses. RECTAL: Deferred. MUSCULOSKELETAL: Atraumatic. Chest examination reveals no tenderness. LOWER EXTREMITIES: Calves are equal size bilaterally and non-tender with 3+ edema. Cool, scattered petechiae. Ecchymosis to left posterior distal thigh and knee. NEURO: Moves all extremities. Non verbal at baseline. No focal deficits noted otherwise. SKIN: Warm and dry. No jaundice noted. Petechiae of the lower extremities. Course 1010:The patient was evaluated in room A12B. A complete history and physical examination was performed 1255: I reviewed the patient's case with SAUL Benites, who will evaluate the patient for further management. 1300: Upon reevaluation, the patient is resting comfortably. I discussed laboratory and radiographic results with the patient and her cartridge loader. Her cartridge loader verbalized agreement of the treatment plan. The patient will be evaluated for further management and care. Consultations Consultation #1: I reviewed the patient's case with SAUL Benites, who will evaluate the patient for further management. Time: 12:55 Administered Medications Ioversol (Optiray 320 125ml) 119 ml IV ONCE PRN PRN Reason: Interaction Checking Stop: 11/27/18 12:08 Last Admin: 11/23/18 12:10 Dose: 119 ml Documented by: [id number] Discontinued Medications Furosemide (Lasix) 40 mg IV NOW STA Stop: 11/23/18 12:31 Last Admin: 11/23/18 12:37 Dose: 40 mg Documented by: [id number] Sodium Chloride (Nss) 500 mls @ 999 mls/hr IV .Q31M SYDNEY Stop: 11/23/18 10:45 Last Infusion: 11/23/18 12:47 Dose: 0 mls/hr Documented by: [id number] Admin: 11/23/18 10:33 Dose: 999 mls/hr Documented by: [id number] Cefepime HCl (Maxipime) 2,000 mg in 12.5 mls @ 3.125 mls/min IV NOW STA; Pr otocol Stop: 11/23/18 10:52 Last Admin: 11/23/18 10:53 Dose: 3.125 mls/min Documented by: [id number] Medical Decision Making Differential Diagnosis Differential diagnosis: Etiologies such as metabolic, infection, hypo/hyperglycemia, electrolyte abnormalities, cardiac sources, intracerebral event, toxicologic, neurologic, as well as others were entertained. Medical Records Attestation: I reviewed the patient's medical records. Home Medications Current Medication List: was personally reviewed by me Laboratory Data Attestation: I reviewed the patient's lab results. Result diagrams: 11/23/18 10:18 11/23/18 10:18 Lab Results 11/23/18 11/23/18 11/23/18 Range/Units 10:18 10:18 10:18 WBC 21.76 H (4.8-10.8) K/uL RBC 3.85 L (4.2-5.4) M/uL Hgb 12.5 (12.0-16.0) g/dL POC Hgb (12.0-16.0) g/dl Hct 37.0 (37-47) % POC Hct (37-47) % MCV 96.1 (80-100) fL MCH 32.5 (25-34) pg MCHC 33.8 (32-36) g/dL RDW Std Deviation 50.8 H (36.4-46.3) fL RDW Coeff of Yaneth 14.5 (11.5-14.5) % Plt Count 269 (130-400) K/uL MPV 9.5 (7.4-10.4) fL Immature Gran % (Auto) 0.3 % Neut % (Auto) 92.5 % Lymph % (Auto) 3.7 % Haakon % (Auto) 3.5 % Eos % (Auto) 0.0 % Baso % (Auto) 0.0 % Immature Gran # (Auto) 0.07 H (0.00-0.02) K/uL Neut # (Auto) 20.10 H (1.4-6.5) K/uL Lymph # (Auto) 0.81 L (1.2-3.4) K/uL Haakon # (Auto) 0.77 H (0.11-0.59) K/uL Eos # (Auto) 0.01 (0-0.5) K/uL Baso # (Auto) 0.00 (0-0.2) K/uL PT 11.9 (9.0-12.0) Seconds INR 1.2 H (0.9-1.1) D-Dimer 2410 H* (0-500) ug/L FEU POC Sodium (135-144) mEq/L Sodium 133 L (136-145) mmol/L POC Potassium (3.3-5.0) mEq/L Potassium 3.4 L (3.5-5.1) mmol/L POC Chloride (101-112) mEq/L Chloride 95 L (98-107) mmol/L Carbon Dioxide 34 H (21-32) mmol/L POC Total CO2 (24-31) mEq/l Anion Gap 4.0 (3-11) POC Anion Gap (16-25) mmol/L POC BUN (7-18) mg/dl BUN 17 (7-18) mg/dl Creatinine 0.68 (0.6-1.2) mg/dl POC Creatinine (0.6-1.3) mg/dl Est Cr Clr Drug Dosing Not Reportable Est GFR ( Amer) 99.9 Est GFR (Non-Af Amer) 86.2 BUN/Creatinine Ratio 25.6 H (10-20) Glucose 153 H (70-99) mg/dl POC Glucose (other) (70-99) mg/dl Lactate (0.4-2.0) mmol/L Calcium 8.6 (8.5-10.1) mg/dl POC Ioniz Calcium Sophia (1.12-1.32) mmol/l Magnesium 1.8 (1.8-2.4) mg/dl Total Bilirubin 0.8 (0.2-1) mg/dl AST 31 (15-37) U/L ALT 76 (12-78) U/L Alkaline Phosphatase 67 (45-117) U/L Troponin I 0.114 H* (0-0.045) ng/ml NT-Pro-B Natriuret Pep 9841 H (0-900) pg/ml Total Protein 6.0 L (6.4-8.2) gm/dl Albumin 2.9 L (3.4-5.0) gm/dl Globulin 3.1 (2.5-4.0) gm/dl Albumin/Globulin Ratio 0.9 (0.9-2) Procalcitonin (0-0.5) ng/ml TSH 2.610 (0.300-4.500) uIu/ml Urine Color Urine Appearance (Clear) Urine pH (4.5-7.5) Ur Specific Era (1.000-1.030) Urine Protein (Negative) Urine Glucose (UA) (Negative) Urine Ketones (Negative) Urine Blood (Negative) Urine Nitrite (Negative) Urine Bilirubin (Negative) Urine Urobilinogen (Negative) Ur Leukocyte Esterase (Negative) Urine WBC (Auto) (0-5) /hpf Urine RBC (Auto) (0-4) /hpf U Hyaline Cast (Auto) (0-5) /lpf U Epithel Cells (Auto) (0-5) /lpf Urine Bacteria (Auto) (Negative) 11/23/18 11/23/18 11/23/18 Range/Units 10:18 10:18 10:37 WBC (4.8-10.8) K/uL RBC (4.2-5.4) M/uL Hgb (12.0-16.0) g/dL POC Hgb 12.9 (12.0-16.0) g/dl Hct (37-47) % POC Hct 38 (37-47) % MCV (80-100) fL MCH (25-34) pg MCHC (32-36) g/dL RDW Std Deviation (36.4-46.3) fL RDW Coeff of Yaneth (11.5-14.5) % Plt Count (130-400) K/uL MPV (7.4-10.4) fL Immature Gran % (Auto) % Neut % (Auto) % Lymph % (Auto) % Haakon % (Auto) % Eos % (Auto) % Baso % (Auto) % Immature Gran # (Auto) (0.00-0.02) K/uL Neut # (Auto) (1.4-6.5) K/uL Lymph # (Auto) (1.2-3.4) K/uL Haakon # (Auto) (0.11-0.59) K/uL Eos # (Auto) (0-0.5) K/uL Baso # (Auto) (0-0.2) K/uL PT (9.0-12.0) Seconds INR (0.9-1.1) D-Dimer (0-500) ug/L FEU POC Sodium 134 L (135-144) mEq/L Sodium (136-145) mmol/L POC Potassium 3.4 (3.3-5.0) mEq/L Potassium (3.5-5.1) mmol/L POC Chloride 89 L (101-112) mEq/L Chloride (98-107) mmol/L Carbon Dioxide (21-32) mmol/L POC Total CO2 32 H (24-31) mEq/l Anion Gap (3-11) POC Anion Gap 17.0 (16-25) mmol/L POC BUN 18 (7-18) mg/dl BUN (7-18) mg/dl Creatinine (0.6-1.2) mg/dl POC Creatinine 0.7 (0.6-1.3) mg/dl Est Cr Clr Drug Dosing Est GFR ( Amer) Est GFR (Non-Af Amer) BUN/Creatinine Ratio (10-20) Glucose (70-99) mg/dl POC Glucose (other) 163 H (70-99) mg/dl Lactate 1.7 (0.4-2.0) mmol/L Calcium (8.5-10.1) mg/dl POC Ioniz Calcium Sophia 1.16 (1.12-1.32) mmol/l Magnesium (1.8-2.4) mg/dl Total Bilirubin (0.2-1) mg/dl AST (15-37) U/L ALT (12-78) U/L Alkaline Phosphatase (45-117) U/L Troponin I (0-0.045) ng/ml NT-Pro-B Natriuret Pep (0-900) pg/ml Total Protein (6.4-8.2) gm/dl Albumin (3.4-5.0) gm/dl Globulin (2.5-4.0) gm/dl Albumin/Globulin Ratio (0.9-2) Procalcitonin < 0.05 (0-0.5) ng/ml TSH (0.300-4.500) uIu/ml Urine Color Urine Appearance (Clear) Urine pH (4.5-7.5) Ur Specific Era (1.000-1.030) Urine Protein (Negative) Urine Glucose (UA) (Negative) Urine Ketones (Negative) Urine Blood (Negative) Urine Nitrite (Negative) Urine Bilirubin (Negative) Urine Urobilinogen (Negative) Ur Leukocyte Esterase (Negative) Urine WBC (Auto) (0-5) /hpf Urine RBC (Auto) (0-4) /hpf U Hyaline Cast (Auto) (0-5) /lpf U Epithel Cells (Auto) (0-5) /lpf Urine Bacteria (Auto) (Negative) 11/23/18 Range/Units 12:55 WBC (4.8-10.8) K/uL RBC (4.2-5.4) M/uL Hgb (12.0-16.0) g/dL POC Hgb (12.0-16.0) g/dl Hct (37-47) % POC Hct (37-47) % MCV (80-100) fL MCH (25-34) pg MCHC (32-36) g/dL RDW Std Deviation (36.4-46.3) fL RDW Coeff of Yaneth (11.5-14.5) % Plt Count (130-400) K/uL MPV (7.4-10.4) fL Immature Gran % (Auto) % Neut % (Auto) % Lymph % (Auto) % Haakon % (Auto) % Eos % (Auto) % Baso % (Auto) % Immature Gran # (Auto) (0.00-0.02) K/uL Neut # (Auto) (1.4-6.5) K/uL Lymph # (Auto) (1.2-3.4) K/uL Haakon # (Auto) (0.11-0.59) K/uL Eos # (Auto) (0-0.5) K/uL Baso # (Auto) (0-0.2) K/uL PT (9.0-12.0) Seconds INR (0.9-1.1) D-Dimer (0-500) ug/L FEU POC Sodium (135-144) mEq/L Sodium (136-145) mmol/L POC Potassium (3.3-5.0) mEq/L Potassium (3.5-5.1) mmol/L POC Chloride (101-112) mEq/L Chloride (98-107) mmol/L Carbon Dioxide (21-32) mmol/L POC Total CO2 (24-31) mEq/l Anion Gap (3-11) POC Anion Gap (16-25) mmol/L POC BUN (7-18) mg/dl BUN (7-18) mg/dl Creatinine (0.6-1.2) mg/dl POC Creatinine (0.6-1.3) mg/dl Est Cr Clr Drug Dosing Est GFR ( Amer) Est GFR (Non-Af Amer) BUN/Creatinine Ratio (10-20) Glucose (70-99) mg/dl POC Glucose (other) (70-99) mg/dl Lactate (0.4-2.0) mmol/L Calcium (8.5-10.1) mg/dl POC Ioniz Calcium Sophia (1.12-1.32) mmol/l Magnesium (1.8-2.4) mg/dl Total Bilirubin (0.2-1) mg/dl AST (15-37) U/L ALT (12-78) U/L Alkaline Phosphatase (45-117) U/L Troponin I (0-0.045) ng/ml NT-Pro-B Natriuret Pep (0-900) pg/ml Total Protein (6.4-8.2) gm/dl Albumin (3.4-5.0) gm/dl Globulin (2.5-4.0) gm/dl Albumin/Globulin Ratio (0.9-2) Procalcitonin (0-0.5) ng/ml TSH (0.300-4.500) uIu/ml Urine Color Dark Yellow Urine Appearance Clear (Clear) Urine pH 5.5 (4.5-7.5) Ur Specific Era 1.029 (1.000-1.030) Urine Protein 2+ H (Negative) Urine Glucose (UA) Negative (Negative) Urine Ketones Trace H (Negative) Urine Blood Negative (Negative) Urine Nitrite Negative (Negative) Urine Bilirubin Negative (Negative) Urine Urobilinogen Negative (Negative) Ur Leukocyte Esterase Negative (Negative) Urine WBC (Auto) 1-5 (0-5) /hpf Urine RBC (Auto) 0-4 (0-4) /hpf U Hyaline Cast (Auto) 5-10 H (0-5) /lpf U Epithel Cells (Auto) 10-20 H (0-5) /lpf Urine Bacteria (Auto) Negative (Negative) Imaging Data Radiologist's Impression: Radiology results as stated below per my review and the radiologist's interpretation: CT head/brain wo con CLINICAL HISTORY: 73 years-old Female with ams. Acutely altered mental status TECHNIQUE: Multiple axial CT images of the head were obtained without contrast. A dose lowering technique was utilized adhering to the principles of ALARA. CT DOSE: 720.23 mGy.cm COMPARISON: CT head 11/09/2018. FINDINGS: No acute intracranial hemorrhage, midline shift, intracranial mass, hydrocephalus, territorial ischemia or abnormal extra-axial collection. Age- related involutional changes. Patchy white matter hypodensities suggest chronic microvascular ischemic disease. Cerebral vascular calcifications noted. The calvarium is intact. Trace bilateral mastoid effusions. Mild mucosal thickening about the paranasal sinuses. There is a suggested drusen about the right globe, 4 mm. Prior bilateral cataract repair. IMPRESSION: No acute intracranial abnormality. The above report was generated using voice recognition software. It may contain grammatical, syntax or spelling errors. Electronically signed by: Aldo Osborne M.D. 11/23/2018 10:49 AM BILATERAL LOWER EXTREMITY VENOUS DOPPLER CLINICAL HISTORY: swelling COMPARISON STUDY: No previous studies for comparison. TECHNIQUE: Sonography of the deep venous system of the bilateral lower extremities was performed. Compression and augmentation were evaluated. FINDINGS: The bilateral common femoral, superficial femoral and popliteal veins were compressible. Augmentation was normal. Flow was shown within the deep calf vessels. No extremity edema was noted. IMPRESSION: No evidence of deep venous thrombus within the bilateral lower extremities. Electronically signed by: Venkata Aleman M.D. 11/23/2018 11:35 AM XR knee LT 3V CLINICAL HISTORY: contusion, swelling COMPARISON: None FINDINGS: Alignment of the left knee is anatomic. There is no acute fracture. There is a trace left knee joint effusion. Moderate osteophytosis of the left knee is noted without significant joint space narrowing. Edema of the left leg is noted. IMPRESSION: 1. No acute fracture. 2. Moderate left knee osteophytosis. 3. Diffuse soft tissue swelling/edema. Electronically signed by: Venkata Aleman M.D. 11/23/2018 12:01 PM SINGLE VIEW CHEST CLINICAL HISTORY: Generalized weakness. FINDINGS: An AP, portable, upright chest radiograph is compared to study dated 11/09/2018. The examination is degraded by portable technique and patient rotation. The heart is enlarged and there is atherosclerotic calcification of the thoracic aorta. There is pulmonary vascular congestion and interstitial edema. There are layering pleural effusions with bibasilar consolidation. No pneumothorax is seen. The skeletal structures are osteopenic. The bony thorax is grossly intact. IMPRESSION: 1. Cardiomegaly with evidence of congestive failure and interstitial edema. 2. Small pleural effusions with bibasilar consolidation. Electronically signed by: Bong Lozano M.D. 11/23/2018 11:[address] ANGIOGRAPHY OF THE CHEST, PULMONARY EMBOLUS PROTOCOL CLINICAL HISTORY: PE, hypoxia, SOB COMPARISON STUDY: Chest radiographs November 09, 2018 and November 23, 2018. TECHNIQUE: Following IV administration of 119 mL of Optiray-320, helical axial images of the chest were obtained utilizing the pulmonary embolus protocol. Maximal intensity projections and sagittal and coronal reformats were viewed on an independent 3D workstation. IV contrast was administered without complicatio n. Automated exposure control was utilized for the study. A dose lowering technique was utilized adhering to the principles of ALARA. CT DOSE: 1736.82 mGy.cm FINDINGS: No pulmonary emboli are identified although the lower lobe pulmonary arteries are suboptimally assessed due to respiratory motion. The heart is moderately enlarged. There is no pericardial effusion. Mild dilatation of the ascending aorta, measuring 4.1 cm is noted. There is no thoracic adenopathy. There is generalized anasarca. Moderate to large left and moderate right pleural effusions are noted with associated atelectasis. There is no pneumothorax. Central airways are patent. No consolidation is identified. There is suspected mild interstitial pulmonary edema. Old rib and thoracic spine fractures are noted. Abdomen and pelvis will be reported separately. IMPRESSION: 1. No pulmonary emboli identified although lower lobe pulmonary arteries suboptimally assessed due to respiratory motion. 2. Moderate to large left and moderate right pleural effusions. Anasarca. 3. Mild pulmonary edema. 4. Moderate cardiomegaly and mild dilatation of the ascending aorta. Electronically signed by: Venkata Aleman M.D. 11/23/2018 12:[address] OF THE ABDOMEN AND PELVIS WITH CONTRAST CLINICAL HISTORY: weakness, ?infection COMPARISON STUDY: None. TECHNIQUE: Following IV administration of 119 mL of Optiray-320, axial images of the abdomen and pelvis were obtained from the lung bases to the proximal femurs. Images were reviewed in the axial, sagittal, and coronal planes. IV contrast was administered without complication. Automated exposure control was utilized for the study. A dose lowering technique was utilized adhering to the principles of ALARA. FINDINGS: Please note that the chest CT will be reported separately. Moderate to large left and moderate right pleural effusions are noted with cardiomegaly and anasarca. Exam is mildly compromised by motion artifact. No pneumatosis, free air or portal venous gas is present. The liver, spleen, adrenal glands, kidneys and pancreas are unremarkable. There is no biliary or pancreatic ductal dilatation. There is no hydronephrosis. There is no evidence for a bowel obstruction. Several bladder diverticula are noted. Colonic diverticulosis is present without evidence for acute diverticulitis. The appendix is not visualized. Old L2 compression fracture is incidentally noted. IMPRESSION: 1. Anasarca with moderate to large left and moderate right pleural effusions. 2. No acute process within the abdomen or pelvis. 3. Colonic diverticulosis without evidence for acute diverticulitis. 4. No bowel obstruction. Electronically signed by: Venkata Aleman M.D. 11/23/2018 12:26 PM ECG Data Attestation: I personally reviewed and interpreted this ECG as follows: Indication: weakness Rate (beats per minute): 106 Rhythm: sinus tachycardia Findings: + nonspecific-ST abn; no PVC and no ST elevation Blood Pressure Blood Pressure Findings: Elevated blood pressure Blood Pressure Disposition: further management by hospitalist JORDY Narrative Patient is a 73-year-old female history of hypertension complaining of lethargy via EMS. Limited history from the patient due to her nonverbal status. Caregiver states over the last several days and weeks issues with blood pr essure. Change multiple medications. Over the last several days increased lower extremity swelling and started on headache. Increase worsening bilateral lower extremity edema with what appear to be some petechiae noted. X-ray of the left knee shows no acute pathology regarding the bones. Today the caregiver notes she would more fatigued although did drink some breakfast. No real indication of pain according to caregiver from the patient given her limited status. Patient appears somewhat cool and fatigued in appearance with worsening shortness of breath noted. Does have significant ecchymosis and bruising of the posterior thigh predominant in the left. Again there is no reports of any significant trauma. Hypoxic on room air. D-dimer was sent as well as coagulation studies. Basic labs completed. Ultrasound lower extremities obtained. Unsure if this is a vasculitic process versus thrombocytopenia versus coagulation disorder. Does not have purpura at this time but again seems more consistent with petechiae. No evidence of significant trauma cytopenia although significant leukocytosis is noted. Given this and the hypoxia I do have concerns for possible diffuse infection and given an empiric dosage of cefepime here. No evidence of significant elect light abnormality or kidney dysfunction. Head CT is unremarkable. Laboratory studies indicate a positive d-dimer and as such a CT of the chest was completed. Does have a positive troponin and proBNP is significantly elevated without prior comparisons. Thyroid study appears within normal limits. CT of the chest to exclude PE and a CT of the abdomen pelvis was completed given concerns for infectious process and limited history available from the patient. Procalcitonin does come back negative given the rest of her constellation of symptoms could be again more of a vasculitic process or localized infectious problem. Ultrasound shows no DVT in the lower extremities. Chest x-ray is indicative of some increased fluid overload small pleural effusions and bibasilar consolidations. On the CT anasarca without evidence of PE or other acute intra-abdominal pathology. There is evidence of some pleural effusions again likely consistent with fluid overload. Given Lasix. Urinalysis eventually returns it does not appear acutely infectious. [employer] Hel[employer] here male be related just to diffuse fluid overload and lower extremity changes secondary to this edema. Obviously requires hospitalization and hospitalist was contacted. Leukocytosis we see her may be related to the recent course of steroids she was on secondary to allergic reaction. Impression & Plan Hypoxia, Elevated troponin, Pulmonary edema, Anasarca Discharge Plan Visit Data Chief Complaint: Lethargic ED Provider: Syed Chen Discharge Problem: Hypoxia, Elevated troponin, Pulmonary edema, Anasarca Patient Disposition: Being Evaluated by Hospitalist Discharge Instructions Interventions: ED Discharge Assessment Last Done: 11/23/18 14:30 Discharge Problem: Pulmonary edema Qualifiers: Chronicity: acute Qualified Code(s): J81.0 - Acute pulmonary edema The scribe's documentation has been prepared under my direction and personally reviewed by me in its entirety. I confirm that the note above accurately reflects all work, treatment, procedures, and medical decision making performed by me.
[2018-11-23] MEDS ORDERED: FUROSEMIDE 40 MG in SYRINGE 0 ML IV SCH (17:00)
[2018-11-23] MEDS: METOPROLOL TARTRATE 25 MG TAB PO SCH ×2 (17:03→20:40)
[2018-11-23] MEDS: ENOXAPARIN INJ 40 MG/0.4 ML SYR SQ SCH (17:03)
[2018-11-23] MEDS: PILOCARPINE HCL 1% OP SOLN 15 ML BTL OPR SCH ×2 (17:04→20:39)
[2018-11-23] MEDS: prednisoLONE acetate 1% OP SUSP 5 ML BTL OPR SCH (20:40)
[2018-11-23] MEDS: POTASSIUM CHLORIDE 20 MEQ TABCR PO SCH (20:40)
[2018-11-23] MEDS: PARoxetine HCl 20 MG TAB PO SCH (20:40)
[2018-11-23] MEDS: SODIUM CHLORIDE 0.65% NA SOLN 45 ML (OCEAN) SCH (20:56)
[2018-11-24 07:00] LABS: BUN Creatinine Ratio 25.7 (10-20); Calcium 8.5 mg/dl (8.5-10.1); Creatinine Clr Calc Pharmacy 67.8 ml/min; Est GFR (African American) 104.1; Est GFR (Non-African American) 89.8; Potassium 3.2 mmol/L (3.5-5.1); Troponin I 0.113 ng/ml (0-0.045)
[2018-11-24] MEDS ORDERED: POTASSIUM CHLORIDE 20 MEQ TABCR PO STA (08:46)
[2018-11-24] MEDS: METOPROLOL TARTRATE 25 MG TAB PO SCH ×2 (08:50→20:59)
[2018-11-24] MEDS: ATORVASTATIN 10 MG TAB PO SCH (08:52)
[2018-11-24] MEDS: ASPIRIN 81 MG ECTAB PO SCH (08:52)
[2018-11-24] MEDS: POTASSIUM CHLORIDE 20 MEQ TABCR PO SCH ×2 (08:53→20:59)
[2018-11-24] MEDS: prednisoLONE acetate 1% OP SUSP 5 ML BTL OPR SCH ×2 (08:53→20:59)
[2018-11-24] MEDS: SODIUM CHLORIDE 0.65% NA SOLN 45 ML (OCEAN) SCH ×2 (08:54→21:00)
--- NOTE | 2018-11-24 08:58 | Family Medicine Progress Note ---
Date of Service November 24, 2018 Assessment & Plan (1) Elevated troponin: (2) Anasarca: (3) Leukocytosis: (4) Hypokalemia: (5) Congestive heart failure: (6) Acute respiratory failure with hypoxia: Presented for concern of hypoxia and elevated BP by caregivers Acute respiratory failure with hypoxia: likely secondary to severe systolic CHF CTA chest: mild pulm edema, moderate-large L and moderate R pleural effusion CT abdomen: concern for anasarca ECHO: EF 20-25% severe global hypokinesis of LV and mild TV/MV regurg Received Lasix IV 40mg x 2 - held for concern of intravascular volume depletion/contraction alkalosis, improved lung exam Anasarca -Likely secondary to severe systolic CHF vs. protein malnutrition Systolic Congestive heart failure/HTN-hypertensive urgency on admission improved: Now normotensive Heart failure likely secondary to long-standing hypertension, less likely to be from ischemic event -ECHO: EF 20-25% severe global hypokinesis of LV and mild TV/MV regurg -Lasix as needed -Started on metoprolol 12.5mg BID and Entresto 24/ BID -DC chlorthalidone and amlodipine -Continue aspirin and atorvastatin Elevated troponin: downtrended Likely demand mismatch from hypertensive urgency -No acute current of injury on her EKG -Trop 0.114->0.113 Hypokalemia: -K 3.2 -repleted with 40meq KCL -On KCL 20meq BID Leukocytosis: -WBC 21.7 -Undetermined etiology - not exhibiting any physical signs of infection -Received prednisone 20mg daily x 3 days prescribed on ED visit on 11/09 and on prednisolone eye drops -Possibly due to knee inflammation? -UCx and blood cultures pending Contusion of left knee: Likely from knee trauma versus fall -L knee xray osteophytes and soft tissue edema -Bilateral lower extremity venous Doppler no DVT -Ice and Tylenol for pain Mental retardation: Patient a [place] since reportedly the caregiver to get POA in formation would be Misty Laloannyparveen, . Her local high risk case manager is Sierra Catherine [phone], Dr. Quezada informed Ms. Alexandre of the patient's admission and likely need for some concern peripheral procedures in the future she said she would inform Ms. Segal and she will be aware if any calls need to be made regarding consent DVT prophylaxis: Lovenox FEN/GI: low sodium diet and 1800cc fluid restriction (7) Mental retardation: Supervising Physician Co-Signing Physician Notes I personally examined the patient and verified all biswas points of history and exam, discussed case, and agree with decision making with Dr Dugan. No meaningful HPI or review of systems. Patient seems to be feeling better. Caregivers present, extensive discussion greater than 30 minutes [id number]. Answered all questions to the best my ability and to their satisfaction. Vitals noted, in general she is awake and alert pleasant no distress. HEENT normocephalic atraumatic mucous membranes moist. Breathing unlabored no accessory muscle use. Skin shows no rashes no pallor or icterus. She does seem to get upset with me whenever I try to look to closely 1 of her stuffed animals. Pulmonary edemaappears to be in acute on undefined duration systolic CHF exacerbation. This is improved with Lasix. We will hold on further Lasix. Contraction alkalosisappears to be related to Lasix. Hold further dosing for now. Pleural effusionsappears to be secondary to the pulmonary edema from the CHF. As long as she is not dyspneic and were able to wean oxygen, this would probably be best followed with watchful waiting and serial x-rays, rather than drainage at this time. If she seems to get at all dyspneic or we are unable to wean oxygen, then drainage obviously would be warranted Systolic cardiomyopathy/undefined duration of systolic CHFgiven her blood pressures when she came in and the diffuse nature of her cardiomyopathy, it seems most likely that this is a hypertensive cardiomyopathy. Less likely given the global hypokinesis it could be viral/idiopathic, and least likely, mostly based on age and risk factors, it could be long-standing ischemic cardiomyopathy. Certainly she shows no indication or need for heart cath right now, we will need to discuss with her decision makers in regards to the possibility of a cath down the road for work-up, versus empiric treatment given that is much more likely hypertensive than ischemic. Beta-cherry has been started, titrate Entresto, continue supportive care. Elevated troponinthis appears to be myocardial demand ischemia versus strain from her hypertension. Appears to be improving. DVT prophylaxisLovenox Again greater than 30 minutes [id number] in discussion with caregivers, time in the room approximately 2:00 time out of the room approximately past 230. Subjective Pt examined and resting comfortably in bed. History limited due to pt being non- verbal Review of Systems Review of Systems: Limited due to pt's mental status and being non-verbal Physical Exam Physical Exam: General: In NAD CV: RRR, no m/r/g PULM: CTAB, somewhat diminished but equal breath sounds bilaterally ABDOMEN: +BS, non-distended, non-tender to palpation in all quadrants LE: no calf TTP, 2+ LE edema, L knee edematous with ecchymosis extending up and down the leg from lateral side of the knee Results & Data Vital Signs (Past 12 Hours) Vital Signs Temp Pulse Resp BP Pulse Ox 11/24/18 07:13 36.7 C 96 H 20 149/71 H 97 11/24/18 04:22 36.9 C 88 16 138/89 97 11/24/18 01:05 123/73 11/23/18 23:24 36.4 C L 68 16 114/76 92 Laboratory Results Abnormal lab results 11/24/18 Range/Units 05:57 Potassium 3.2 L (3.5-5.1) mmol/L Chloride 94 L (98-107) mmol/L Carbon Dioxide 43 H* (21-32) mmol/L Anion Gap 1.0 L (3-11) BUN/Creatinine Ratio 25.7 H (10-20) Troponin I 0.113 H* (0-0.045) ng/ml Diagnostic Findings CT ANGIOGRAPHY OF THE CHEST, PULMONARY EMBOLUS PROTOCOL CLINICAL HISTORY: PE, hypoxia, SOB COMPARISON STUDY: Chest radiographs November 09, 2018 and November 23, 2018. TECHNIQUE: Following IV administration of 119 mL of Optiray-320, helical axial images of the chest were obtained utilizing the pulmonary embolus protocol. Maximal intensity projections and sagittal and coronal reformats were viewed on an independent 3D workstation. IV contrast was administered without complication. Automated exposure control was utilized for the study. A dose lowering technique was utilized adhering to the principles of ALARA. CT DOSE: 1736.82 mGy.cm FINDINGS: No pulmonary emboli are identified although the lower lobe pulmonary arteries are suboptimally assessed due to respiratory motion. The heart is moderately enlarged. There is no pericardial effusion. Mild dilatation of the ascending aorta, measuring 4.1 cm is noted. There is no thoracic adenopathy. There is generalized anasarca. Moderate to large left and moderate right pleural effusions are noted with associated atelectasis. There is no pneumothorax. Central airways are patent. No consolidation is identified. There is suspected mild interstitial pulmonary edema. Old rib and thoracic spine fractures are noted. Abdomen and pelvis will be reported separately. IMPRESSION: 1. No pulmonary emboli identified although lower lobe pulmonary arteries suboptimally assessed due to respiratory motion. 2. Moderate to large left and moderate right pleural effusions. Anasarca. 3. Mild pulmonary edema. 4. Moderate cardiomegaly and mild dilatation of the ascending aorta. CT OF THE ABDOMEN AND PELVIS WITH CONTRAST CLINICAL HISTORY: weakness, ?infection COMPARISON STUDY: None. TECHNIQUE: Following IV administration of 119 mL of Optiray-320, axial images of the abdomen and pelvis were obtained from the lung bases to the proximal femurs. Images were reviewed in the axial, sagittal, and coronal planes. IV contrast was administered without complication. Automated exposure control was utilized for the study. A dose lowering technique was utilized adhering to the principles of ALARA. FINDINGS: Please note that the chest CT will be reported separately. Moderate to large left and moderate right pleural effusions are noted with cardiomegaly and anasarca. Exam is mildly compromised by motion artifact. No pneumatosis, free air or portal venous gas is present. The liver, spleen, adrenal glands, kidneys and pancreas are unremarkable. There is no biliary or pancreatic ductal dilatation. There is no hydronephrosis. There is no evidence for a bowel obstruction. Several bladder diverticula are noted. Colonic diverticulosis is present without evidence for acute diverticulitis. The appendix is not visualized. Old L2 compression fracture is incidentally noted. IMPRESSION: 1. Anasarca with moderate to large left and moderate right pleural effusions. 2. No acute process within the abdomen or pelvis. 3. Colonic diverticulosis without evidence for acute diverticulitis. 4. No bowel obstruction. XR knee LT 3V CLINICAL HISTORY: contusion, swelling COMPARISON: None FINDINGS: Alignment of the left knee is anatomic. There is no acute fracture. There is a trace left knee joint effusion. Moderate osteophytosis of the left knee is noted without significant joint space narrowing. Edema of the left leg is noted. IMPRESSION: 1. No acute fracture. 2. Moderate left knee osteophytosis. 3. Diffuse soft tissue swelling/edema. BILATERAL LOWER EXTREMITY VENOUS DOPPLER CLINICAL HISTORY: swelling COMPARISON STUDY: No previous studies for comparison. TECHNIQUE: Sonography of the deep venous system of the bilateral lower extremities was performed. Compression and augmentation were evaluated. FINDINGS: The bilateral common femoral, superficial femoral and popliteal veins were compressible. Augmentation was normal. Flow was shown within the deep calf vessels. No extremity edema was noted. IMPRESSION: No evidence of deep venous thrombus within the bilateral lower extremities. CT head/brain wo con CLINICAL HISTORY: 73 years-old Female with ams. Acutely altered mental status TECHNIQUE: Multiple axial CT images of the head were obtained without contrast. A dose lowering technique was utilized adhering to the principles of ALARA. CT DOSE: 720.23 mGy.cm COMPARISON: CT head 11/09/2018. FINDINGS: No acute intracranial hemorrhage, midline shift, intracranial mass, hydrocephalus, territorial ischemia or abnormal extra-axial collection. Age- related involutional changes. Patchy white matter hypodensities suggest chronic microvascular ischemic disease. Cerebral vascular calcifications noted. The calvarium is intact. Trace bilateral mastoid effusions. Mild mucosal thickening about the paranasal sinuses. There is a suggested drusen about the right globe, 4 mm. Prior bilateral cataract repair. IMPRESSION: No acute intracranial abnormality. Resident Activity Tracking Resident Involvement: Resident Care Provided Care Provided: Adult [facility]
[2018-11-24] MEDS ORDERED: LOSARTAN POTASSIUM 25 MG TAB PO SCH (09:00)
[2018-11-24] MEDS: ENOXAPARIN INJ 40 MG/0.4 ML SYR SQ SCH (15:46)
[2018-11-24] MEDS: PILOCARPINE HCL 1% OP SOLN 15 ML BTL OPR SCH ×2 (15:47→20:59)
[2018-11-24] MEDS: PARoxetine HCl 20 MG TAB PO SCH (20:58)
[2018-11-24] MEDS: SACUBITRIL-VALSARTAN 24-26 MG TAB PO SCH (22:21)
[2018-11-25 06:07] LABS: Basophils # (auto) 0.01 K/uL (0-0.2); Basophils % (auto) 0.1 %; Eosinophils # (auto) 0.04 K/uL (0-0.5); Eosinophils % (auto) 0.3 %; Hematocrit (blood only) 37.4 % (37-47); Hemoglobin 12.4 g/dL (12.0-16.0); Immature Granulocytes # (auto) 0.04 K/uL (0.00-0.02); Immature Granulocytes % (auto) 0.3 %; Lymphocytes # (auto) 1.47 K/uL (1.2-3.4); Mean Corpuscular Hgb Conc 33.2 g/dL (32-36); Mean Corpuscular Volume 98.4 fL (80-100); Mean Platelet Volume 9.3 fL (7.4-10.4); Monocytes # (auto) 0.96 K/uL (0.11-0.59); Monocytes % (auto) 6.6 %; Neutrophils # (auto) 12.11 K/uL (1.4-6.5); Neutrophils % (auto) 82.7 %; Platelet Count 219 K/uL (130-400); RDW Coefficient of Variation 14.4 % (11.5-14.5); RDW Standard Deviation 51.5 fL (36.4-46.3); White Blood Count 14.63 K/uL (4.8-10.8)
[2018-11-25 06:51] LABS: BUN Creatinine Ratio 26.7 (10-20); Calcium 8.9 mg/dl (8.5-10.1); Creatinine Clr Calc Pharmacy 68.8 ml/min; Est GFR (African American) 104.6; Est GFR (Non-African American) 90.3; Magnesium 2.1 mg/dl (1.8-2.4); Potassium 3.8 mmol/L (3.5-5.1)
[2018-11-25] MEDS: METOPROLOL TARTRATE 25 MG TAB PO SCH (08:33)
[2018-11-25] MEDS: ATORVASTATIN 10 MG TAB PO SCH (08:34)
[2018-11-25] MEDS: ASPIRIN 81 MG ECTAB PO SCH (08:34)
[2018-11-25] MEDS: prednisoLONE acetate 1% OP SUSP 5 ML BTL OPR SCH (08:35)
[2018-11-25] MEDS: SACUBITRIL-VALSARTAN 24-26 MG TAB PO SCH (08:38)
[2018-11-25] MEDS: SODIUM CHLORIDE 0.65% NA SOLN 45 ML (OCEAN) SCH (08:38)
--- NOTE | 2018-11-25 15:07 | Discharge Summary ---
Date of Service November 25, 2018 Admission HPI Per Admitting Provider 73-year-old intellectually challenged wart of the [facility] cared for by caregivers 24 hours a day. ER few days ago with a diffuse rash of undetermined etiology was given prednisone therapy. Patient's been having challenges controlling her blood pressure as an outpatient. Caregivers have been measuring her blood pressure and found to be markedly elevated today. She presents to the ER today she is nonverbal which is her typical state she is mostly blind. The patient has hypoxia on presentation evidence of heart failure on chest x-ray and unknown determined etiology of the left knee injury with negative x-rays for fracture bilateral pleural effusions and anasarca seen on CT scans. Patient stabilized with intravenous Lasix and supplementation of oxygen. Her caregiver many years at the bedside and says she looks to be less distressed than she was at home. She also feels that her rash is improved with administration of oral prednisone therapy at home Admission Exam Per Admitting Provider The patient appeared well nourished and normally developed. She appears in mild distress Vital signs as documented. Marked blood pressure elevation Head exam is unremarkable. normocephalic, atraumatic patient has cloudy cornea with eyes deviated and disconjugate Neck is without jugular venous distension but she is a short thick neck and is d ifficult to see JVD in this patient, thyromegaly, or lymphademopathy Lungs are diminished at both bases left greater than right rales just above the diminished breath sounds Cardiac exam reveals Rhythm is regular. No loud murmurs are heard first and second heart sounds normal. Abdominal exam reveals normal bowel sounds, no masses, no organomegaly is slightly uncomfortable to exam Extremities are mildly edematous and both pedal pulses are present there is contusion to her left knee which is tender to examination Neurologic exam is is arousable and nods her head during conversation she follows some commands Skin is warm Dry there are healing abrasions to her lower legs Principal Diagnosis Hypoxia secondary to systolic CHF induced pulmonary edema Discharge Exam General: In NAD CV: RRR, no m/r/g PULM: CTAB, equal breath sounds bilaterally ABDOMEN: +BS, non-distended, non-tender to palpation in all quadrants LE: no calf TTP, 2+ b/l LE edema, L knee edematous with ecchymosis extending up and down the leg from lateral side of the knee with induration (improving) Discharge Data Allergies Allergy/AdvReac Type Severity Reaction Status Date / Time Sulfa (Sulfonamide AdvReac Unknown Unknown Unverified 11/23/18 10:33 Antibiotics) Chlorine Allergy Mild UNKNOWN Uncoded 11/23/18 10:33 Consultations 11/23/18 12:56 ED Decision to Admit Stat 11/23/18 14:50 Consult Case Management - Discharge Planning Routine Ordered Studies XR knee LT 3V CLINICAL HISTORY: contusion, swelling COMPARISON: None FINDINGS: Alignment of the left knee is anatomic. There is no acute fracture. There is a trace left knee joint effusion. Moderate osteophytosis of the left knee is noted without significant joint space narrowing. Edema of the left leg is noted. IMPRESSION: 1. No acute fracture. 2. Moderate left knee osteophytosis. 3. Diffuse soft tissue swelling/edema. 11/23/18 10:02 CT head/brain wo con Stat 11/23/18 10:05 US venous doppler LE BI Stat BILATERAL LOWER EXTREMITY VENOUS DOPPLER CLINICAL HISTORY: swelling COMPARISON STUDY: No previous studies for comparison. TECHNIQUE: Sonography of the deep venous system of the bilateral lower extremities was performed. Compression and augmentation were evaluated. FINDINGS: The bilateral common femoral, superficial femoral and popliteal veins were compressible. Augmentation was normal. Flow was shown within the deep calf vessels. No extremity edema was noted. IMPRESSION: No evidence of deep venous thrombus within the bilateral lower extremities. 11/23/18 11:19 CT abd pelvis IV con only Stat CT OF THE ABDOMEN AND PELVIS WITH CONTRAST CLINICAL HISTORY: weakness, ?infection COMPARISON STUDY: None. TECHNIQUE: Following IV administration of 119 mL of Optiray-320, axial images of the abdomen and pelvis were obtained from the lung bases to the proximal femurs. Images were reviewed in the axial, sagittal, and coronal planes. IV contrast was administered without complication. Automated exposure control was utilized for the study. A dose lowering technique was utilized adhering to the principles of ALARA. FINDINGS: Please note that the chest CT will be reported separately. Moderate to large left and moderate right pleural effusions are noted with cardiomegaly and anasarca. Exam is mildly compromised by motion artifact. No pneumatosis, free air or portal venous gas is present. The liver, spleen, adrenal glands, kidneys and pancreas are unremarkable. There is no biliary or pancreatic ductal dilatation. There is no hydronephrosis. There is no evidence for a bowel obstruction. Several bladder diverticula are noted. Colonic diverticulosis is present without evidence for acute diverticulitis. The appendix is not visualized. Old L2 compression fracture is incidentally noted. IMPRESSION: 1. Anasarca with moderate to large left and moderate right pleural effusions. 2. No acute process within the abdomen or pelvis. 3. Colonic diverticulosis without evidence for acute diverticulitis. 4. No bowel obstruction. CT angio chest PE protocol Stat CT ANGIOGRAPHY OF THE CHEST, PULMONARY EMBOLUS PROTOCOL CLINICAL HISTORY: PE, hypoxia, SOB COMPARISON STUDY: Chest radiographs November 09, 2018 and November 23, 2018. TECHNIQUE: Following IV administration of 119 mL of Optiray-320, helical axial images of the chest were obtained utilizing the pulmonary embolus protocol. Maximal intensity projections and sagittal and coronal reformats were viewed on an independent 3D workstation. IV contrast was administered without complication. Automated exposure control was utilized for the study. A dose lowering technique was utilized adhering to the principles of ALARA. CT DOSE: 1736.82 mGy.cm FINDINGS: No pulmonary emboli are identified although the lower lobe pulmonary arteries are suboptimally assessed due to respiratory motion. The heart is moderately enlarged. There is no pericardial effusion. Mild dilatation of the ascending aorta, measuring 4.1 cm is noted. There is no thoracic adenopathy. There is generalized anasarca. Moderate to large left and moderate right pleural effusions are noted with associated atelectasis. There is no pneumothorax. Central airways are patent. No consolidation is identified. There is suspected mild interstitial pulmonary edema. Old rib and thoracic spine fractures are noted. Abdomen and pelvis will be reported separately. IMPRESSION: 1. No pulmonary emboli identified although lower lobe pulmonary arteries suboptimally assessed due to respiratory motion. 2. Moderate to large left and moderate right pleural effusions. Anasarca. 3. Mild pulmonary edema. 4. Moderate cardiomegaly and mild dilatation of the ascending aorta. CT head/brain wo con CLINICAL HISTORY: 73 years-old Female with ams. Acutely altered mental status TECHNIQUE: Multiple axial CT images of the head were obtained without contrast. A dose lowering technique was utilized adhering to the principles of ALARA. CT DOSE: 720.23 mGy.cm COMPARISON: CT head 11/09/2018. FINDINGS: No acute intracranial hemorrhage, midline shift, intracranial mass, hydrocephalus, territorial ischemia or abnormal extra-axial collection. Age- related involutional changes. Patchy white matter hypodensities suggest chronic microvascular ischemic disease. Cerebral vascular calcifications noted. The calvarium is intact. Trace bilateral mastoid effusions. Mild mucosal thickening about the paranasal sinuses. There is a suggested drusen about the right globe, 4 mm. Prior bilateral cataract repair. IMPRESSION: No acute intracranial abnormality. Hospital Course (1) Elevated troponin: (2) Anasarca: (3) Leukocytosis: (4) Hypokalemia: (5) Congestive heart failure: (6) Acute respiratory failure with hypoxia: Presented for concern of hypoxia and elevated BP by caregivers Acute respiratory failure with hypoxia: likely secondary to severe systolic CHF CTA chest: mild pulm edema, moderate-large L and moderate R pleural effusion CT abdomen: concern for anasarca ECHO: EF 20-25% severe global hypokinesis of LV and mild TV/MV regurg Received Lasix IV 40mg x 2 - held for concern of intravascular volume depletion/contraction alkalosis, improved lung exam Discharged on lasix 20mg PO daily PRN for weight 2lbs greater than 147lb (dry weight at discharge) Systolic Congestive heart failure/HTN-hypertensive urgency on admission improved Heart failure likely secondary to long-standing hypertension, less likely to be from ischemic event -ECHO: EF 20-25% severe global hypokinesis of LV and mild TV/MV regurg -Lasix 20mg daily PRN for weight greater than 2lb from dry weight 147 -Started on metoprolol 12.5mg BID and Entresto 24/26 BID -DC chlorthalidone, losartan and amlodipine-lisinoprin -Continue aspirin and atorvastatin Anasarca -Likely secondary to severe systolic CHF vs. protein malnutrition Elevated troponin: downtrended Likely demand mismatch from hypertensive urgency -No acute current of injury on her EKG -Trop 0.114->0.113 Leukocytosis: improved likely reactive -WBC 21.7 -> 14.6 -Blood and urine culture NGTD Contusion of left knee: Likely from knee trauma versus fall -L knee xray osteophytes and soft tissue edema -Bilateral lower extremity venous Doppler no DVT -Ice and Tylenol for pain Mental retardation: Patient a [place] of state since reportedly the caregiver to get POA information would be Misty Segal, . Her local nurse case manager is Sierra Alexander [phone], Dr. Quezada informed Ms. Alexander of the patient's admission and likely need for some concern peripheral procedures in the future she said she would inform Ms. Segal and she will be aware if any calls need to be made regarding consent DVT prophylaxis: Lovenox FEN/GI: low sodium diet 1500mg and 1800cc fluid restriction (7) Mental retardation: Total Time Total Time Spent Total Time Spent (In Minutes): 30 Discharge Plan Discharge Items Patient Disposition: Home - Home Health Services Reason For Visit: ANASARCA Discharge Diagnosis: Acute respiratory failure secondary to systolic CHF induced pulmonary edema Discharge Goals: Decrease discomfort, Diagnostic testing and Therapeutic intervention Activity: Resume your previous activity Non-emergency contact: Primary Care Provider Call non-emergency contact if: you have any medication questions, your symptoms worsen and your temperature is above 100.5 Follow-up/Referrals: Mary Colón CRNP [Primary Care Provider] - Diet: Heart Healthy Addtl Provider Instructions: Ms. Novoa was hospitalized for concern of difficulty breathing and found to have severe heart failure which likely caused the fluid back up in her lungs as her heart is weak to efficiently pump blood forward Please give her lasix 20mg daily as needed for increase in baseline weight by 2 pounds or more (from baseline weight on discharge of 147lb which was her dry weight ). Measure weight if notice she is having trouble breathing. We recommend taking a daily pulse ox to know how well she is oxygenating and daily a blood pressure Please stop giving her previously prescribed blood pressure medications: losartan, chlorthalidone and lisinopril-amlodipine Start giving her the following blood pressure medications because they also help treat her heart failure: metoprolol 12.5mg (1/2 pill) twice a day and Entresto 24-26mg twice a day Limit salt intake to 1500mg per day Please follow up with your primary care doctor in 2-3 days following hospitali zation Prescriptions: New metoprolol tartrate 25 mg Tablet 12.5 mg PO BID Qty: 15 RF: 0 Entresto 24-26 mg Tablet 1 tab PO BID Qty: 60 RF: 0 furosemide [Lasix] 20 mg tablet 20 mg PO DAILY PRN (Reason: edema increase in weight by 2lb) Qty: 30 RF: 0 Continued multivitamin Tablet 1 tab PO QAM RF: 0 pilocarpine HCl 1 % Drops 1 drp OPR BID RF: 0 atorvastatin 10 mg Tablet 10 mg PO QAM RF: 0 prednisone 20 mg tablet 20 mg PO UD RF: 0 paroxetine HCl 20 mg Tablet 20 mg PO PM RF: 0 Pamela 128 2 % Drops 1 drp OPHTHALMIC (EYE) BID RF: 0 sodium chloride [[place] Nasal] 0.65 % Aerosol,Sunset 2 spray INTRANASAL BID RF: 0 vitamin B comp and C no.3 59-05-12-5-300 mg Capsule 1 cap PO BID RF: 0 prednisolone acetate (PF) 1 % Drops,Suspension 1 drp OPR BID RF: 0 Calcium Posture D 1 tab PO BID RF: 0 Probiotic Acidophilus 16 Bill 1 tab PO QAM RF: 0 Discontinued chlorthalidone 25 mg Tablet 25 mg PO QAM RF: 0 losartan 25 mg Tablet 25 mg PO QAM RF: 0 Lisinopril-Amlodipine 1 tab PO QAM RF: 0 Stand-Alone Forms: [facility] Discharge Orders: Discharge Order (Routine); Ordered 11/25/18 Ordered By: Isa Dugan Admission Data Admit Date/Time: 11/23/18 13:02 Attending Provider: Parish Nagy Admit Provider: Mendez Quezada Primary Care Provider: Mary Colón Other Providers: Mendez Quezada ; Rinku Segura Service: Telemetry Other Interventions: Discharge Summary Assessment (RN) Last Done: 11/25/18 14:24 DC Date/Time DO NOT enter until pt leaves facility: 11/25/18 15:08 Resident Activity Tracking Resident Involvement: Resident Care Provided Care Provided: Adult Hospital Medicine
== END 2018-11-25 15:08 | disposition home health service (06) | DRG 291 ==
LOC: ED 09:47 → 2S 13:02 → SUATTDRO 13:02 → 2S 14:30

== ENCOUNTER 2018-11-26 04:02 | Inpatient (IN) ==
[2018-11-26] MEDS ORDERED: ALBUT/IPRATROP 3MG/0.5MG NEB 3 ML VIAL ONE (04:08)
[2018-11-26 04:52] LABS: Basophils # (auto) 0.01 K/uL (0-0.2); Basophils % (auto) 0.1 %; Hematocrit (blood only) 39.2 % (37-47); Hemoglobin 13.5 g/dL (12.0-16.0); Immature Granulocytes # (auto) 0.06 K/uL (0.00-0.02); Immature Granulocytes % (auto) 0.4 %; Lymphocytes # (auto) 0.95 K/uL (1.2-3.4); Lymphocytes % (auto) 5.8 %; Mean Corpuscular Hgb Conc 34.4 g/dL (32-36); Mean Corpuscular Volume 96.8 fL (80-100); Mean Platelet Volume 9.6 fL (7.4-10.4); Monocytes % (auto) 5.5 %; Neutrophils # (auto) 14.32 K/uL (1.4-6.5); Neutrophils % (auto) 88.2 %; Platelet Count 246 K/uL (130-400); RDW Coefficient of Variation 14.4 % (11.5-14.5); RDW Standard Deviation 51.3 fL (36.4-46.3); Red Blood Count 4.05 M/uL (4.2-5.4); White Blood Count 16.24 K/uL (4.8-10.8)
[2018-11-26 05:09] LABS: BUN Creatinine Ratio 29.6 (10-20); Calcium 8.8 mg/dl (8.5-10.1); Creatinine Clr Calc Pharmacy 69.1 ml/min; Est GFR (African American) 105.8; Est GFR (Non-African American) 91.3; Magnesium 1.7 mg/dl (1.8-2.4); Potassium 3.8 mmol/L (3.5-5.1)
[2018-11-26 05:26] LABS: Bilirubin,Total 0.8 mg/dl (0.2-1); Troponin I 0.232 ng/ml (0-0.045)
[2018-11-26] MEDS ORDERED: FUROSEMIDE 40 MG/4 ML VIAL IV STA (05:48)
--- NOTE | 2018-11-26 06:31 | XRay Report ---
XR chest 1V portable HISTORY: 73 years-old Female sob acute shortness of breath COMPARISON: Chest radiograph and CTA chest 11/23/2018 TECHNIQUE: Portable AP view of the chest FINDINGS: Cardiac silhouette is enlarged, unchanged. Pulmonary edema pattern without pneumothorax. Unchanged bi lateral pleural effusions with bibasilar opacities. Degenerative changes of the shoulders and spine. IMPRESSION: 1. Cardiomegaly with pulmonary edema. 2. Unchanged bilateral pleural effusions with bibasilar opacities. The above report was generated using voice recognition software. It may contain grammatical, syntax o r spelling errors. Electronically signed by: Aldo Osborne M.D. 11/26/2018 6:30 AM
[2018-11-26 06:34] LABS: Appearance Urine Clear (Clear); Bacteria Urine Automated Negative (Negative); Bilirubin Urine Negative (Negative); Color Urine Yellow; Epithelial Cell Urine Auto >30 /lpf (0-5); Glucose Urine UA Negative (Negative); Ketones Urine Trace (Negative); Leukocyte Esterase Urine 1+ (Negative); Nitrite Urine Negative (Negative); Protein Urine 2+ (Negative); Specific Gravity Urine 1.017 (1.000-1.030); Urobilinogen Urine Negative (Negative)
[2018-11-26] MEDS ORDERED: ACETAMINOPHEN 325 MG TAB PO PRN (08:58)
[2018-11-26] MEDS ORDERED: ONDANSETRON INJ 2 MG/ML 2 ML VIAL IV PRN (08:58)
[2018-11-26] MEDS ORDERED: SODIUM CHLORIDE 5% (MURO) OP OINT 3.5 GM TUBE OP SCH (09:00)
[2018-11-26] MEDS ORDERED: FUROSEMIDE 40 MG in SYRINGE 0 ML IV SCH (09:15)
--- NOTE | 2018-11-26 09:38 | History & Physical Report ---
Date of Service November 26, 2018 Assessment & Plan (1) Acute dyspnea: After further review, while she may have had a degree of pulmonary edema, it appears to mostly relate to her pleural effusions and laying flat. Possibly compounded by some obstructive sleep apnea. She appears much more comfortable right now, we discussed the case with thoracic surgery who will perform a thoracentesis. (2) Hypoxia: As above (3) Dilated cardiomyopathy: Idiopathic. See discussions on last admit. Most likely is a long- standing hypertensive cardiomyopathy, versus less likely idiopathic/post viral, versus least likely ischemic. She has not shown any acute signs or symptoms of ischemia warranting heart cath. We had discussed that this would probably be part of the work-up on a semielective basis as an outpatient, depending on the patient's status and the input of her skills caregiver. Continue Coreg and Entresto, as well as symptoms/weight driven Lasix. (4) Pleural effusion: See above. For thoracentesis. (5) Essential hypertension: Continue current meds, if her pressures continue to run high we may be L to increase the Entresto further (6) Elevated troponin: Appears to represent wall strain versus demand ischemia. (7) DVT prophylaxis: Lovenox (8) Leukocytosis: Nonspecific. On last admission she had a rather significant leukocytosis that improved without intervention either. Follow-up CBC in the a.m., check a CRP as well. History of Present Illness Chief Complaint: hypoxia Primary Care Provider: MELITON Heath decision maker is Misty hawk [facility] - [phone] cell, [phone] work Full-time caregiver present at the bedside. Patient just went home yesterday. She was doing well, she ate food that the caregiver was quite sure was less than 400 mg of sodium. She went to bed and was just fine showed no signs of dyspnea etc. Then around 2 in the morning the caregiver noticed that she was very restless and was starting to look like she was breathing very labored. She checked her pulse ox and while it was difficult to get a good waveform she felt it was probably in the 70s or 80s, and summoned EMS. Whenever they were bringing her in it did appear reliable that she was hypoxic. No HPI review of systems obtainable from the patient. Allergies Allergy/AdvReac Type Severity Reaction Status Date / Time Sulfa (Sulfonamide AdvReac Unknown Unknown Unverified 11/26/18 04:29 Antibiotics) Chlorine Allergy Mild UNKNOWN Uncoded 11/26/18 04:29 Home Medications Home Medications Medication Instructions Recorded Confirmed Type Calcium Posture D 1 tab PO BID 11/23/18 11/26/18 History Pamela 128 1 drp OPHTHALMIC (EYE) BID 11/23/18 11/26/18 History Probiotic Acidophilus 16 Bill 1 tab PO QAM 11/23/18 11/26/18 History atorvastatin 10 mg PO QAM 11/23/18 11/26/18 History multivitamin 1 tab PO QAM 11/23/18 11/26/18 History paroxetine HCl 20 mg PO PM 11/23/18 11/26/18 History pilocarpine HCl 1 drp OPR BID 11/23/18 11/26/18 History prednisolone acetate (PF) 1 drp OPR BID 11/23/18 11/26/18 History prednisone 20 mg PO UD 11/23/18 11/26/18 History sodium chloride [[place] Nasal] 2 spray INTRANASAL BID 11/23/18 11/26/18 History vitamin B comp and C no.3 1 cap PO BID 11/23/18 11/26/18 History aspirin 81 mg PO DAILY #30 tab 11/25/18 11/26/18 Rx furosemide [Lasix] 20 mg PO DAILY PRN #30 tab 11/25/18 11/26/18 Rx metoprolol tartrate 12.5 mg PO BID #15 tab 11/25/18 11/26/18 Rx sacubitril-valsartan [Entresto] 1 tab PO BID #60 tab 11/25/18 11/26/18 Rx sacubitril-valsartan [Entresto] 1 tab PO BID 11/26/18 11/26/18 History Past Med/Surg History Medical History Dilated cardiomyopathy Mental retardation (Chronic) Blind Hypertension Nonverbal Surgical History No pertinent past surgical history Family History Other Family history non-contributory Social History Preferred Language: Malay Communication Ability: Unable Communication Ability Comment: mentally challenged Licensed Physical Therapist Assistant Required: No Beliefs That Will Affect Care: None marital status: Single Current Living Situation: Legal Guardian current occupational status: unemployed and disabled Other Information That Helps Us Care for You: No Feels Safe at Home: Yes Safety Concerns: Feels Safe At This Time Smoking Status: Never smoker Do You Dip or Chew Tobacco: No Second Hand Exposure: No Tobacco Cessation Education Requested by Patient: No Hx Alcohol Use: No Hx Substance Use: No Immunizations: Family history not obtainable from patient, review of her outpatient chart shows no family history of note. Review of Systems Review of Systems: All systems reviewed & are unremarkable except as noted in HPI & below and Unobtainable due to mental health condition Physical Exam Physical Exam: In general she is asleep in the bed appearing comfortable and in no distress. HEENT normocephalic atraumatic mucous membranes moist. Cardio is regular somewhat distant no rubs murmurs or gallops. Lungs show diminished air entry bibasilar but no rales rhonchi or wheezes good effort no accessory muscle use. Abdomen is soft nondistended nontender no masses or organomegaly. Extremities show no cyanosis or clubbing may be trace to 1+ edema no calf tenderness Skin shows areas that look mildly excoriated from scratching, but no other rashes, no pallor no icterus. Neuro shows cranial nerves II through XII be grossly intact gross motor and sensory are intact, although she does have chronic eye findings Mental status she is nonverbal Musculoskeletal exam yields no gross lesions Results & Data Vital Signs (Past 12 Hours) Vital Signs Labs and diagnostics noted Temp Pulse Pulse Resp BP BP BP 11/26/18 09:17 36.5 C 97 H 19 119/70 11/26/18 05:53 115 H 18 164/128 H 11/26/18 04:42 109 H 18 161/112 H 11/26/18 04:03 36.5 C 106 H 18 170/125 H Pulse Ox 11/26/18 09:17 97 11/26/18 05:53 96 11/26/18 04:42 94 11/26/18 04:03 96
[2018-11-26] MEDS: ATORVASTATIN 10 MG TAB PO SCH (10:51)
[2018-11-26] MEDS: METOPROLOL TARTRATE 25 MG TAB PO SCH ×2 (10:51→20:39)
[2018-11-26] MEDS: SACUBITRIL-VALSARTAN 24-26 MG TAB PO SCH ×2 (10:51→20:39)
[2018-11-26] MEDS: ASPIRIN 81 MG ECTAB PO SCH (10:51)
[2018-11-26] MEDS: SODIUM CHLORIDE 0.65% NA SOLN 45 ML (OCEAN) SCH ×2 (10:52→20:38)
--- NOTE | 2018-11-26 12:02 | XRay Report ---
XR chest 1V portable CLINICAL HISTORY: thoracentesis post procedure COMPARISON STUDY: No previous studies for comparison. FINDINGS: Mild stable cardia megaly. No evidence for pneumothorax postthoracentesis. Subtle increase in right hemithoracic density compared to the left which may indicate mild degree of residual pleural fluid. IMPRESSION: No evidence for pneumothorax postthoracentesis. The above report was generated using voice recognition software. It may contain grammatical, syntax or spelling errors. Electronically signed by: Bari Maurice M.D. 11/26/2018 12:01 PM
--- NOTE | 2018-11-26 13:12 | Consultation Report ---
DATE OF CONSULTATION: 11/26/2018 Ms. oNvoa is a mentally challenged 73-year-old who presented to the hospitalist service and appears to be in congestive heart failure. She has bilateral effusions which are left larger than the right. Dr. Parish Nagy asked if we would evaluate this patient for possible therapeutic thoracentesis. I had a long discussion with the patient's power of deputy prosecuting attorney as well as her caretakers. We are going to proceed with a left thoracentesis under ultrasound guidance this morning. For full specifics of this consultation, please see Mr. Eamon Montana's note.
[2018-11-26 13:13] LABS: LDH Pleural Fluid 62 U/L; Total Protein Pleural Fluid 0.9 g/dl
--- NOTE | 2018-11-26 13:49 | Operative Report ---
DATE OF OPERATION: 11/26/2018 PREOPERATIVE DIAGNOSIS: Bilateral pleural effusions, left greater than right. POSTOPERATIVE DIAGNOSIS: Bilateral pleural effusions, left greater than right. PROCEDURE PERFORMED: Left thoracentesis under ultrasound guidance. SURGEON: Tha Meadows MD CO-SURGEON: BIBI Rajan ANESTHESIA: Local. DESCRIPTION OF PROCEDURE: The patient was seated at the bedside leaning forward with her coordinate measuring machine operator present. We evaluated the left posterior chest with an ultrasound solid. She had a significant fluid, we picked the good spot with a window into the chest, it would be the least chance of injury. The patient was prepped and draped in usual sterile fashion. After appropriate timeout had been called, skin wheal was raised 25 gauge needle, 1% Xylocaine. A large bore needle was used to anesthetize the deeper tissues, muscles and pleura and we got free flowing clear fluid back. A guidewire was inserted through the needle and the needle removed. A triple lumen catheter was slid over the guidewire and the guidewire removed and 1000 mL of a yellowish fluid was drained with some mild reexpansion coughing. We could not drain any more fluid. We elected to proceed with determination in the case and pulled the catheter without difficulty. Antimicrobial dressings were placed. The pH was 7.42. Chest x-ray is pending. I attest to the content of the Intraoperative Record and any orders documented therein. Any exception s are noted below.
[2018-11-26 13:59] LABS: Mononuclear WBC Pleural 58.1 %; Polynuclear WBC Pleural 41.9 %; RBC Pleural Fluid (A) < 3000 /uL; Source Pleural Fluid LEFT LUNG; WBC Pleural Fluid (A) 44 /uL
--- NOTE | 2018-11-26 14:07 | Consultation Report ---
DATE OF CONSULTATION: 11/26/2018 REASON FOR CONSULTATION: Pleural effusions. HISTORY OF PRESENT ILLNESS: This is a 73-year-old female who is a [facility]. I visited her with at her bedside in the presence of her caregiver who did help supplement the history. The patient has mental impairment; therefore, provides no history to me, however. Her caregiver does note that last week she was in the hospital secondary to shortness of breath and she was ultimately discharged home. She continued to have worsening shortness of breath which prompted her admission to the hospital. There were no reported fevers, shakes, chills or falls. To the best of her knowledge, there has been no chest pain. However, it should be noted that due to the patient's mental impairment, subjective data is very difficult to obtain. The patient was readmitted to [facility] where she did have labs where white blood cell count noted to be 16.24. Hemoglobin, hematocrit and platelet count were noted to be within the normal range. Her chemistry profile did show a sodium and potassium, and BUN that were normal. Creatinine was slightly decreased at 0.57. She was noted to have elevated troponin of 0.232. Her ProBNP was also elevated at 7610. The patient did have imaging studies performed including a CT scan of her chest that showed bilateral pleural effusions with the left being greater than the right. No pulmonary emboli were noted. Because of her findings on CT scan, we were asked to see the patient for possible thoracentesis. PAST MEDICAL HISTORY: Includes: 1. Mental impairment. 2. Hypertension. 3. History of legally blind. SOCIAL HISTORY: The patient lives with her caregiver and does not smoke cigarettes. FAMILY HISTORY: Unable to be obtained. ALLERGIES: SULFA AND CHLORINE. OUTPATIENT MEDICATIONS: Include the followin. Aspirin 81 mg daily. 2. Lipitor 10 mg daily. 3. Calcium with vitamin D twice daily. 4. Lasix 20 mg daily as needed for weight gain. 5. Metoprolol 12.5 mg twice daily. 6. Multivitamin daily. 7. Ophthalmic eyedrops twice daily. 8. Paroxetine 20 mg daily. 9. Pilocarpine eyedrops twice daily. 10. Prednisone eyedrops twice daily. 11. Prednisone 20 mg daily. 12. Probiotic daily. 13. Sacubitril/valsartan 1 tablet twice daily. 14. [place] nasal spray twice daily. 15. Vitamin B complex daily. PHYSICAL EXAMINATION: VITAL SIGNS: The patient is afebrile. Temperature 36.5, blood pressure 119/70, pulse is 97 and regular, respirations are 19 and unlabored, pulse ox 97% on 2 liters. GENERAL: The patient did not appear to be in distress. She did not converse due to mental impairment. HEENT: Her head appeared atraumatic. Eyes: The patient is legally blind. Ears: Auditory acuity did appear to be intact as the patient did respond to verbal stimuli. Mouth: Has moist mucous membranes. NECK: Without tracheal shift or stridor. CARDIOVASCULAR: Regular rate and rhythm. LUNGS: Revealed markedly decreased breath sounds at the bases with the left being greater than the right. Accessory muscles were not being used to aid in respiration. ABDOMEN: Soft and nontender to palpation. EXTREMITIES: Revealed no cyanosis, clubbing or edema. NEUROLOGIC: Revealed that the patient would move all 4 extremities without noted focal deficits. DIAGNOSTIC DATA: As noted above. IMPRESSION: A 73-year-old female with bilateral pleural effusions. PLAN: We will perform a left-sided thoracentesis as this appears to be larger than the right. We did discuss with the patient's caregiver at bedside as well as a contact the [employer] and we spoke with her power of traffic law attorney, Misty Segal. We explained the risks of the procedure which include but are not limited to bleeding, infection and pneumothorax as well as the benefits, which will allow us to analyze the fluid for possible causes as well as improve her breathing. Alternatives were discussed which include observation or diuretic therapy. After lengthy discussion with her via phone, we did receive permission to perform this procedure. Please see separate note for detailed description of this procedure.
[2018-11-26] MEDS: HEPARIN SOD 5,000 UNIT/0.5 ML VIAL SQ SCH ×2 (14:26→20:41)
[2018-11-26] MEDS: PILOCARPINE HCL 1% OP SOLN 15 ML BTL OPR SCH ×2 (15:49→20:38)
[2018-11-26] MEDS: PARoxetine HCl 20 MG TAB PO SCH (20:40)
[2018-11-26] MEDS: SODIUM CHLORIDE 5% (MURO) OP OINT 3.5 GM TUBE OP SCH (21:49)
--- NOTE | 2018-11-26 23:22 | Emergency Department Note ---
Entered by Jan Montes acting as a scribe for History of Present Illness General Chief complaint: Shortness of Breath/Dyspnea Stated complaint: breathing difficulty Time Seen by Provider: 11/26/18 04:12 Source: family Mode of arrival: EMS Limitations: language barrier (HPI limited secondary to the patient being non- verbal.) History of Present Illness The patient is a 73 y/o female who presents to the ED w/ CC of constant shortness of breath beginning two hours ago. The patient is non-verbal and the history is from the patient's caregiver. The caregiver states the patient was discharged yesterday around 4pm. She reports she has been checking the patient's BP and O2Sat every few hours. The caregiver notes she checked the patient at midnight, and the patient was stable. She states at 2am the patient started to become restless and short of breath. The caregiver reports she checked the patients O2Sat with a PulseOx, and it varied between 50 and 82. She notes she called the ambulance because the patient may have CHF. The caregiver states the patient has only had trouble with her blood pressure; she has not had other heart or brain trouble. She reports the patient felt very cold this evening and has a wet cough. The caregiver notes the patient also looked purplish red in color. HPI limited secondary to the patient being non-verbal. EMS reported pt with dyspnea, sats in the 80's, and cyanotic nailbeds. [employer] reports he heard wheezing and gave patient a neb treatment en route. Home Medications Home Medications Medication Instructions Recorded Confirmed Type Calcium Posture D 1 tab PO BID 11/23/18 11/26/18 History Pamela 128 1 drp OPHTHALMIC (EYE) BID 11/23/18 11/26/18 History Probiotic Acidophilus 16 Bill 1 tab PO QAM 11/23/18 11/26/18 History atorvastatin 10 mg PO QAM 11/23/18 11/26/18 History multivitamin 1 tab PO QAM 11/23/18 11/26/18 History paroxetine HCl 20 mg PO PM 11/23/18 11/26/18 History pilocarpine HCl 1 drp OPR BID 11/23/18 11/26/18 History prednisolone acetate (PF) 1 drp OPR BID 11/23/18 11/26/18 History prednisone 20 mg PO UD 11/23/18 11/26/18 History sodium chloride [[place] Nasal] 2 spray INTRANASAL BID 11/23/18 11/26/18 History vitamin B comp and C no.3 1 cap PO BID 11/23/18 11/26/18 History aspirin 81 mg PO DAILY #30 tab 11/25/18 11/26/18 Rx furosemide [Lasix] 20 mg PO DAILY PRN #30 tab 11/25/18 11/26/18 Rx metoprolol tartrate 12.5 mg PO BID #15 tab 11/25/18 11/26/18 Rx sacubitril-valsartan [Entresto] 1 tab PO BID #60 tab 11/25/18 11/26/18 Rx sacubitril-valsartan [Entresto] 1 tab PO BID 11/26/18 11/26/18 History Allergies Allergy/AdvReac Type Severity Reaction Status Date / Time Sulfa (Sulfonamide AdvReac Unknown Unknown Unverified 11/26/18 04:29 Antibiotics) Chlorine Allergy Mild UNKNOWN Uncoded 11/26/18 04:29 Past Med/Surg History Medical History Essential hypertension Dilated cardiomyopathy Mental retardation (Chronic) Blind Hypertension Nonverbal Surgical History No pertinent past surgical history Family History Other Family history non-contributory Social History Preferred Language: Setswana Communication Ability: Unable Communication Ability Comment: 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 Beliefs That Will Affect Care: None marital status: Single Current Living Situation: Legal Guardian current occupational status: unemployed and disabled Other Information That Helps Us Care for You: No Feels Safe at Home: Yes Safety Concerns: Feels Safe At This Time Smoking Status: Never smoker Do You Dip or Chew Tobacco: No Second Hand Exposure: No Tobacco Cessation Education Requested by Patient: No Hx Alcohol Use: No Hx Substance Use: No Review of Systems Other (ROS limited secondary to the patient being non-verbal.) Physical Exam Vital Signs Vital Signs - 24 hr 11/26/18 04:03 11/26/18 04:42 11/26/18 05:53 Temperature 36.5 C Temperature Source Oral Sepsis Recent Fever Within 48 Hours No Sepsis Action Taken by Nursing No Action Required Pulse Rate 106 H Pulse Rate [Finger] 109 H 115 H Pulse Rhythm [Finger] Pulse Strength [Finger] Respiratory Rate 18 18 18 Respiratory Effort / Characteristics Respiratory Depth Respiratory Pattern Blood Pressure 170/125 H Blood Pressure [Left Arm] Blood Pressure [Right Arm] 161/112 H 164/128 H Blood Pressure Mean 140 Blood Pressure Mean [Left Arm] Blood Pressure Mean [Right Arm] 128 140 Blood Pressure Position [Left Arm] Blood Pressure Position [Right Arm] Pulse Oximetry 96 94 96 Oxygen Delivery Method Nasal Cannula Nasal Cannula Nasal Cannula Oxygen Flow Rate 2 2 2 11/26/18 07:05 11/26/18 08:45 11/26/18 09:17 Temperature 36.5 C Temperature Source Oral Sepsis Recent Fever Within 48 Hours Sepsis Action Taken by Nursing Pulse Rate 105 H Pulse Rate [Finger] 97 H Pulse Rhythm [Finger] Pulse Strength [Finger] Respiratory Rate 19 Respiratory Effort / Characteristics Spontaneous Non-Labored Spontaneous Respiratory Depth Normal Normal Respiratory Pattern Regular Regular Blood Pressure Blood Pressure [Left Arm] 119/70 Blood Pressure [Right Arm] Blood Pressure Mean Blood Pressure Mean [Left Arm] 86 Blood Pressure Mean [Right Arm] Blood Pressure Position [Left Arm] Lying Blood Pressure Position [Right Arm] Pulse Oximetry 97 Oxygen Delivery Method Nasal Cannula Nasal Cannula Nasal Cannula Oxygen Flow Rate 2 2 2.0 11/26/18 11:15 11/26/18 15:11 11/26/18 15:55 Temperature 37.0 C Temperature Source Oral Sepsis Recent Fever Within 48 Hours Sepsis Action Taken by Nursing Pulse Rate 105 H Pulse Rate [Finger] 115 H Pulse Rhythm [Finger] Pulse Strength [Finger] Respiratory Rate 20 Respiratory Effort / Characteristics Non-Labored Spontaneous Respiratory Depth Normal Respiratory Pattern Regular Blood Pressure Blood Pressure [Left Arm] 159/112 H Blood Pressure [Right Arm] Blood Pressure Mean Blood Pressure Mean [Left Arm] 127 Blood Pressure Mean [Right Arm] Blood Pressure Position [Left Arm] Blood Pressure Position [Right Arm] Pulse Oximetry 95 Oxygen Delivery Method Nasal Cannula Nasal Cannula Oxygen Flow Rate 2.0 2 11/26/18 16:05 11/26/18 19:48 11/26/18 19:55 Temperature 36.8 C 36.9 C Temperature Source Oral Oral Sepsis Recent Fever Within 48 Hours Sepsis Action Taken by Nursing Pulse Rate Pulse Rate [Finger] 99 H 97 H Pulse Rhythm [Finger] Regular Pulse Strength [Finger] Normal Respiratory Rate 18 20 Respiratory Effort / Characteristics Non-Labored Spontaneous Non-Labored Spontaneous Respiratory Depth Normal Normal Respiratory Pattern Regular Regular Blood Pressure Blood Pressure [Left Arm] Blood Pressure [Right Arm] 117/60 108/64 Blood Pressure Mean Blood Pressure Mean [Left Arm] Blood Pressure Mean [Right Arm] 79 78 Blood Pressure Position [Left Arm] Blood Pressure Position [Right Arm] Lying Pulse Oximetry 94 92 Oxygen Delivery Method Room Air Nasal Cannula Nasal Cannula Oxygen Flow Rate 2 2 11/26/18 22:57 Temperature 36.6 C Temperature Source Oral Sepsis Recent Fever Within 48 Hours Sepsis Action Taken by Nursing Pulse Rate Pulse Rate [Finger] 75 Pulse Rhythm [Finger] Pulse Strength [Finger] Respiratory Rate 20 Respiratory Effort / Characteristics Respiratory Depth Respiratory Pattern Blood Pressure Blood Pressure [Left Arm] 126/87 Blood Pressure [Right Arm] Blood Pressure Mean Blood Pressure Mean [Left Arm] 100 Blood Pressure Mean [Right Arm] Blood Pressure Position [Left Arm] Lying Blood Pressure Position [Right Arm] Pulse Oximetry 93 Oxygen Delivery Method Nasal Cannula Oxygen Flow Rate 2 GENERAL: alert, restless appearing, well nourished, no distress, non-toxic EYE EXAM: normal conjunctiva, PERRL and EOM's grossly intact. Opacified cornea on the left. OROPHARYNX: no exudate, no erythema, lips, buccal mucosa, and tongue normal and mucous membranes are moist NECK: supple, no nuchal rigidity, no adenopathy, non-tender LUNGS: Diminished, bibasilar rales. Normal chest wall mechanics HEART: no murmurs, S1 normal and S2 normal ABDOMEN: abdomen soft, non-tender, normo-active bowel sounds, no masses, no rebound or guarding. BACK: Back is symmetrical on inspection and there is no deformity, no midline tenderness, no CVA tenderness. SKIN: no rashes and no bruising UPPER EXTREMITIES: upper extremities are grossly normal. Nml pulses b/l. LOWER EXTREMITIES: Trace LE edema. Nml pulses b/l. NEURO EXAM: cranial nerves II-XII grossly intact, nonverbal, pt moving all extremities spontaneously Course 0406: Past medical records reviewed. The patient was evaluated in room B02. A complete history and physical exam was performed. 0547: Upon reevaluation, I discussed findings and results with her. While on oxygen, the patient's oxygen level dropped to 80%. She verbalized agreement of the treatment plan. 0722: I spoke with Dr. Simms of the [facility] Hospitalist Service. The patient will be evaluated for further management and care. Administered Medications Aspirin (Ecotrin Ectab) 81 mg PO DAILY [place] Stop: 12/26/18 08:59 Last Admin: 11/26/18 10:51 Dose: Not Given Documented by: [id number] Atorvastatin Calcium (Lipitor) 10 mg PO QAM [place] Stop: 12/26/18 08:59 Last Admin: 11/26/18 10:51 Dose: Not Given Documented by: [id number] Heparin Sodium (Porcine) (Heparin Sodium (Porcine)) 5,000 units SQ Q8 [place] Stop: 12/26/18 13:59 Last Admin: 11/26/18 20:41 Dose: 5,000 units Documented by: [id number] Cosigned by: [id number] Admin: 11/26/18 14:26 Dose: 5,000 units Documented by: [id number] Cosigned by: [id number] Metoprolol Tartrate (Lopressor) 12.5 mg PO BID [place] Stop: 12/26/18 08:59 Last Admin: 11/26/18 20:39 Dose: 12.5 mg Documented by: [id number] Admin: 11/26/18 10:51 Dose: Not Given Documented by: [id number] Paroxetine HCl (Paxil) 20 mg PO PM [place] Stop: 12/26/18 20:59 Last Admin: 11/26/18 20:40 Dose: 20 mg Documented by: [id number] Pilocarpine HCl (Isopto Carpine 1% Opn Soln) 1 drops OPR DAILY@1600,2000 [facility] Stop: 12/26/18 15:59 Last Admin: 11/26/18 20:38 Dose: 1 drops Documented by: [id number] Admin: 11/26/18 15:49 Dose: 1 drops Documented by: [id number] Sacubitril/Valsartan (Entresto 24/26mg) 1 tab PO BID [place] Stop: 12/26/18 08:59 Last Admin: 11/26/18 20:39 Dose: 1 tab Documented by: [id number] Admin: 11/26/18 10:51 Dose: Not Given Documented by: [id number] Sodium Chloride ([place] Nasal) 2 sprays NA BID [place] Stop: 12/26/18 08:59 Last Admin: 11/26/18 20:38 Dose: 2 sprays Documented by: [id number] Admin: 11/26/18 10:52 Dose: Not Given Documented by: [id number] Sodium Chloride (Pamela 128 Oph) 1 appln OP BID [place] Stop: 12/26/18 08:59 Last Admin: 11/26/18 21:49 Dose: 1 appln Documented by: [id number] Discontinued Medications Furosemide (Lasix) 40 mg IV NOW STA Stop: 11/26/18 05:49 Last Admin: 11/26/18 05:54 Dose: 40 mg Documented by: [id number] Furosemide 40 mg/ Syringe 4 mls @ 4 mls/min IV TODAY@0915 [place] Stop: 11/26/18 09:16 Last Admin: 11/26/18 10:31 Dose: 4 mls/min Documented by: [id number] Miscellaneous (Order Awaiting Action) 1 ea N/A QS [facility] Stop: 12/26/18 15:59 Last Admin: 11/26/18 15:49 Dose: Not Given Documented by: [id number] Sodium Chloride (Pamela 128 Oph) 1 appln OP BID [place] Stop: 12/26/18 08:59 Last Admin: 11/26/18 10:52 Dose: Not Given Documented by: [id number] Medical Decision Making Differential Diagnosis Differential diagnoses includes but is not limited to pneumonia, bronchitis, COPD/Asthma exacerbation, pneumothorax, pulmonary embolism, congestive heart failure, acute coronary syndrome Medical Records Attestation: I reviewed the patient's medical records. Home Medications Current Medication List: was personally reviewed by me Laboratory Data Attestation: I reviewed the patient's lab results. Result diagrams: 11/26/18 04:38 11/26/18 04:38 Lab Results 11/26/18 11/26/18 11/26/18 Range/Units 04:38 04:38 06:24 WBC 16.24 H (4.8-10.8) K/uL RBC 4.05 L (4.2-5.4) M/uL Hgb 13.5 (12.0-16.0) g/dL Hct 39.2 (37-47) % MCV 96.8 (80-100) fL MCH 33.3 (25-34) pg MCHC 34.4 (32-36) g/dL RDW Std Deviation 51.3 H (36.4-46.3) fL RDW Coeff of Yaneth 14.4 (11.5-14.5) % Plt Count 246 (130-400) K/uL MPV 9.6 (7.4-10.4) fL Immature Gran % (Auto) 0.4 % Neut % (Auto) 88.2 % Lymph % (Auto) 5.8 % Wallace % (Auto) 5.5 % Eos % (Auto) 0.0 % Baso % (Auto) 0.1 % Immature Gran # (Auto) 0.06 H (0.00-0.02) K/uL Neut # (Auto) 14.32 H (1.4-6.5) K/uL Lymph # (Auto) 0.95 L (1.2-3.4) K/uL Wallace # (Auto) 0.90 H (0.11-0.59) K/uL Eos # (Auto) 0.00 (0-0.5) K/uL Baso # (Auto) 0.01 (0-0.2) K/uL Sodium 137 (136-145) mmol/L Potassium 3.8 (3.5-5.1) mmol/L Chloride 95 L (98-107) mmol/L Carbon Dioxide 39 H (21-32) mmol/L Anion Gap 3.0 (3-11) BUN 17 (7-18) mg/dl Creatinine 0.57 L (0.6-1.2) mg/dl Est Cr Clr Drug Dosing 69.1 ml/min Est GFR ( Amer) 105.8 Est GFR (Non-Af Amer) 91.3 BUN/Creatinine Ratio 29.6 H (10-20) Glucose 135 H (70-99) mg/dl Calcium 8.8 (8.5-10.1) mg/dl Magnesium 1.7 L (1.8-2.4) mg/dl Total Bilirubin 0.8 (0.2-1) mg/dl AST 36 (15-37) U/L ALT 62 (12-78) U/L Alkaline Phosphatase 62 (45-117) U/L Troponin I 0.232 H* (0-0.045) ng/ml NT-Pro-B Natriuret Pep 7610 H (0-900) pg/ml Total Protein 6.0 L (6.4-8.2) gm/dl Albumin 3.0 L (3.4-5.0) gm/dl Globulin 3.0 (2.5-4.0) gm/dl Albumin/Globulin Ratio 1.0 (0.9-2) Lipase 277 (73-393) U/L Urine Color Yellow Urine Appearance Clear (Clear) Urine pH 7.0 (4.5-7.5) Ur Specific [place] 1.017 (1.000-1.030) Urine Protein 2+ H (Negative) Urine Glucose (UA) Negative (Negative) Urine Ketones Trace H (Negative) Urine Blood 1+ H (Negative) Urine Nitrite Negative (Negative) Urine Bilirubin Negative (Negative) Urine Urobilinogen Negative (Negative) Ur Leukocyte Esterase 1+ H (Negative) Urine WBC (Auto) 1-5 (0-5) /hpf Urine RBC (Auto) 10-30 H (0-4) /hpf U Hyaline Cast (Auto) 1-5 (0-5) /lpf U Epithel Cells (Auto) >30 H (0-5) /lpf Urine Bacteria (Auto) Negative (Negative) Urine Yeast Not Reportable Pleural Fluid Source Pleural Color Pleural Appearance Pleural WBC /uL Pleural RBC /uL Pleural Polynuclear % % Pleural Mononuclear % % Pleural Total Protein g/dl Pleural LDH U/L Pleural Glucose mg/dl Pleural Amylase U/L 11/26/18 11/26/18 11/26/18 Range/Units 12:58 20:17 Unknown WBC (4.8-10.8) K/uL RBC (4.2-5.4) M/uL Hgb (12.0-16.0) g/dL Hct (37-47) % MCV (80-100) fL MCH (25-34) pg MCHC (32-36) g/dL RDW Std Deviation (36.4-46.3) fL RDW Coeff of Yaneth (11.5-14.5) % Plt Count (130-400) K/uL MPV (7.4-10.4) fL Immature Gran % (Auto) % Neut % (Auto) % Lymph % (Auto) % Wallace % (Auto) % Eos % (Auto) % Baso % (Auto) % Immature Gran # (Auto) (0.00-0.02) K/uL Neut # (Auto) (1.4-6.5) K/uL Lymph # (Auto) (1.2-3.4) K/uL Wallace # (Auto) (0.11-0.59) K/uL Eos # (Auto) (0-0.5) K/uL Baso # (Auto) (0-0.2) K/uL Sodium (136-145) mmol/L Potassium (3.5-5.1) mmol/L Chloride (98-107) mmol/L Carbon Dioxide (21-32) mmol/L Anion Gap (3-11) BUN (7-18) mg/dl Creatinine (0.6-1.2) mg/dl Est Cr Clr Drug Dosing ml/min Est GFR ( Amer) Est GFR (Non-Af Amer) BUN/Creatinine Ratio (10-20) Glucose (70-99) mg/dl Calcium (8.5-10.1) mg/dl Magnesium (1.8-2.4) mg/dl Total Bilirubin (0.2-1) mg/dl AST (15-37) U/L ALT (12-78) U/L Alkaline Phosphatase (45-117) U/L Troponin I 0.323 H* 0.285 H* (0-0.045) ng/ml NT-Pro-B Natriuret Pep (0-900) pg/ml Total Protein (6.4-8.2) gm/dl Albumin (3.4-5.0) gm/dl Globulin (2.5-4.0) gm/dl Albumin/Globulin Ratio (0.9-2) Lipase (73-393) U/L Urine Color Urine Appearance (Clear) Urine pH (4.5-7.5) Ur Specific [place] (1.000-1.030) Urine Protein (Negative) Urine Glucose (UA) (Negative) Urine Ketones (Negative) Urine Blood (Negative) Urine Nitrite (Negative) Urine Bilirubin (Negative) Urine Urobilinogen (Negative) Ur Leukocyte Esterase (Negative) Urine WBC (Auto) (0-5) /hpf Urine RBC (Auto) (0-4) /hpf U Hyaline Cast (Auto) (0-5) /lpf U Epithel Cells (Auto) (0-5) /lpf Urine Bacteria (Auto) (Negative) Urine Yeast Pleural Fluid Source LEFT LUNG Pleural Color PALE YELLOW Pleural Appearance CLEAR Pleural WBC 44 /uL Pleural RBC < 3000 /uL Pleural Polynuclear % 41.9 % Pleural Mononuclear % 58.1 % Pleural Total Protein 0.9 g/dl Pleural LDH 62 U/L Pleural Glucose 127 mg/dl Pleural Amylase U/L 11/26/18 Range/Units Unknown WBC (4.8-10.8) K/uL RBC (4.2-5.4) M/uL Hgb (12.0-16.0) g/dL Hct (37-47) % MCV (80-100) fL MCH (25-34) pg MCHC (32-36) g/dL RDW Std Deviation (36.4-46.3) fL RDW Coeff of Yaneth (11.5-14.5) % Plt Count (130-400) K/uL MPV (7.4-10.4) fL Immature Gran % (Auto) % Neut % (Auto) % Lymph % (Auto) % Wallace % (Auto) % Eos % (Auto) % Baso % (Auto) % Immature Gran # (Auto) (0.00-0.02) K/uL Neut # (Auto) (1.4-6.5) K/uL Lymph # (Auto) (1.2-3.4) K/uL Wallace # (Auto) (0.11-0.59) K/uL Eos # (Auto) (0-0.5) K/uL Baso # (Auto) (0-0.2) K/uL Sodium (136-145) mmol/L Potassium (3.5-5.1) mmol/L Chloride (98-107) mmol/L Carbon Dioxide (21-32) mmol/L Anion Gap (3-11) BUN (7-18) mg/dl Creatinine (0.6-1.2) mg/dl Est Cr Clr Drug Dosing ml/min Est GFR ( Amer) Est GFR (Non-Af Amer) BUN/Creatinine Ratio (10-20) Glucose (70-99) mg/dl Calcium (8.5-10.1) mg/dl Magnesium (1.8-2.4) mg/dl Total Bilirubin (0.2-1) mg/dl AST (15-37) U/L ALT (12-78) U/L Alkaline Phosphatase (45-117) U/L Troponin I (0-0.045) ng/ml NT-Pro-B Natriuret Pep (0-900) pg/ml Total Protein (6.4-8.2) gm/dl Albumin (3.4-5.0) gm/dl Globulin (2.5-4.0) gm/dl Albumin/Globulin Ratio (0.9-2) Lipase (73-393) U/L Urine Color Urine Appearance (Clear) Urine pH (4.5-7.5) Ur Specific [place] (1.000-1.030) Urine Protein (Negative) Urine Glucose (UA) (Negative) Urine Ketones (Negative) Urine Blood (Negative) Urine Nitrite (Negative) Urine Bilirubin (Negative) Urine Urobilinogen (Negative) Ur Leukocyte Esterase (Negative) Urine WBC (Auto) (0-5) /hpf Urine RBC (Auto) (0-4) /hpf U Hyaline Cast (Auto) (0-5) /lpf U Epithel Cells (Auto) (0-5) /lpf Urine Bacteria (Auto) (Negative) Urine Yeast Pleural Fluid Source Pleural Color Pleural Appearance Pleural WBC /uL Pleural RBC /uL Pleural Polynuclear % % Pleural Mononuclear % % Pleural Total Protein g/dl Pleural LDH U/L Pleural Glucose mg/dl Pleural Amylase 15 U/L Imaging Data Radiologist's Impression: Radiology results as stated below per my review and the radiologist's interpretation: XR chest 1V portable HISTORY: 73 years-old Female sob acute shortness of breath COMPARISON: Chest radiograph and CTA chest 11/23/2018 TECHNIQUE: Portable AP view of the chest FINDINGS: Cardiac silhouette is enlarged, unchanged. Pulmonary edema pattern without pneumothorax. Unchanged bilateral pleural effusions with bibasilar opacities. Degenerative changes of the shoulders and spine. IMPRESSION: 1. Cardiomegaly with pulmonary edema. 2. Unchanged bilateral pleural effusions with bibasilar opacities. The above report was generated using voice recognition software. It may contain grammatical, syntax or spelling errors. Electronically signed by: Aldo Osborne M.D. 11/26/2018 6:30 AM ECG Data Attestation: I personally reviewed and interpreted this ECG as follows: Indication: SOB/dyspnea Rate (beats per minute): 113 Rhythm: sinus tachycardia Findings: + other (Normal axis. Normal intervals. Low voltage. Baseline artifact.) and + T-wave inversion (Lead III); no PAC, no PVC and no ectopy Blood Pressure Blood Pressure Findings: Elevated blood pressure Blood Pressure Disposition: further management by hospitalist MDM Narrative Pt here with increased WOB, hypoxia while on NC which she doesn't wear at home after recent admission for CHF. Pt with cognitive delay and nonverbal making assessment and evaluation difficult. Pt afebrile, and VS otw stable. CXR appears consistent with pulmonary edema, and appears slightly increased compared to prior. Pt given additional lasix given WOB, hypoxia, and pulmonary edema. Pt not on oxygen at home. t with prior elevated troponins, however troponin today higher than prior. More likely related to CHF and increased demand. Case discussed with hospitalist for additional evaluation and treatment. Impression & Plan Acute dyspnea, Elevated troponin, Hypoxia, Pulmonary edema Discharge Plan Visit Data *Final* Discharge Date/Time: 11/26/18 08:10 Chief Complaint: Shortness of Breath/Dyspnea Stated Complaint: breathing difficulty ED Provider: Antonia Crawford Discharge Problem: Acute dyspnea, Elevated troponin, Hypoxia, Pulmonary edema Patient Disposition: Admitted As Inpatient Discharge Instructions Interventions: ED Discharge Assessment Last Done: 11/26/18 08:10 Discharge Problem: Pulmonary edema Qualifiers: Chronicity: acute Qualified Code(s): J81.0 - Acute pulmonary edema The scarlettibe's documentation has been prepared under my direction and personally reviewed by me in its entirety. I confirm that the note above accurately reflects all work, treatment, procedures, and medical decision making performed by me.
[2018-11-27] MEDS: HEPARIN SOD 5,000 UNIT/0.5 ML VIAL SQ SCH ×3 (05:55→20:05)
[2018-11-27 05:58] LABS: Eosinophils # (auto) 0.04 K/uL (0-0.5); Eosinophils % (auto) 0.3 %; Hematocrit (blood only) 39.1 % (37-47); Hemoglobin 12.5 g/dL (12.0-16.0); Immature Granulocytes # (auto) 0.03 K/uL (0.00-0.02); Immature Granulocytes % (auto) 0.2 %; Lymphocytes # (auto) 1.08 K/uL (1.2-3.4); Lymphocytes % (auto) 8.2 %; Mean Platelet Volume 9.6 fL (7.4-10.4); Monocytes % (auto) 5.3 %; Neutrophils # (auto) 11.31 K/uL (1.4-6.5); Platelet Count 196 K/uL (130-400); RDW Coefficient of Variation 14.4 % (11.5-14.5); RDW Standard Deviation 52.1 fL (36.4-46.3); Red Blood Count 3.95 M/uL (4.2-5.4); White Blood Count 13.16 K/uL (4.8-10.8)
[2018-11-27 06:45] LABS: BUN Creatinine Ratio 26.8 (10-20); Blood Urea Nitrogen 12 mg/dl (7-18); C Reactive Protein 1.75 mg/dl (0-0.29); Calcium 8.2 mg/dl (8.5-10.1); Chloride 93 mmol/L (98-107); Creatinine Clr Calc Pharmacy 85.1 ml/min; Est GFR (African American) 113.6; Glucose 84 mg/dl (70-99); Potassium 3.2 mmol/L (3.5-5.1); Sodium 140 mmol/L (136-145)
--- NOTE | 2018-11-27 07:37 | XRay Report ---
XR chest 1V portable CLINICAL HISTORY: effusion COMPARISON STUDY: Chest CT November 23, 2018. Chest radiograph November 26, 2018. FINDINGS: There is no pneumothorax. Lung volumes are diminished. [id number] bilateral pleural effusions are noted. Pulmonary edema is noted. Cardiomediastinal silhouette is stable. IMPRESSION: 1. Small to moderate bilateral pleural effusions. No pneumothorax. 3. Pulmonary edema. Electronically signed by: Venkata Aleman M.D. 11/27/2018 7:36 AM
[2018-11-27] MEDS: ATORVASTATIN 10 MG TAB PO SCH (08:30)
[2018-11-27] MEDS: METOPROLOL TARTRATE 25 MG TAB PO SCH (08:30)
[2018-11-27] MEDS: SACUBITRIL-VALSARTAN 24-26 MG TAB PO SCH ×2 (08:30→20:33)
[2018-11-27] MEDS: ASPIRIN 81 MG ECTAB PO SCH (08:30)
[2018-11-27] MEDS: SODIUM CHLORIDE 0.65% NA SOLN 45 ML (OCEAN) SCH ×2 (08:31→20:02)
[2018-11-27] MEDS: SODIUM CHLORIDE 5% (MURO) OP OINT 3.5 GM TUBE OP SCH ×2 (08:31→20:03)
[2018-11-27] MEDS: PREDNISOLONE ACETATE 1% OPR SCH ×2 (08:32→20:05)
[2018-11-27] MEDS ORDERED: ENOXAPARIN INJ 40 MG/0.4 ML SYR SQ SCH (09:00)
[2018-11-27] MEDS ORDERED: FUROSEMIDE 40 MG TAB PO SCH (09:00)
[2018-11-27] MEDS: POTASSIUM CHLORIDE 20 MEQ TABCR PO SCH ×2 (09:17→20:03)
[2018-11-27] MEDS: METOPROLOL SUCC 25MG EXT REL TAB PO SCH (09:17)
--- NOTE | 2018-11-27 11:15 | Surgery Progress Note ---
Date of Service November 27, 2018 Assessment & Plan (1) Pleural effusion: -pt. seems improved clinically -she underwent left thoracentesis on 11/26/18 -culture are thus far (-) and no organism noted on gram stain -cytology (-) for malignancy -CXR shows some reaccumulation of fluid -continue mgt of underlying issues by primary service -if significant reaccumulation of fluid noted will intervene if needed Subjective Pt. non-verbal due to mental impairment. She does not appear to be in distress and RN notes no issues. Physical Exam Respiratory: BS are decreased at bases Results & Data Vital Signs (Past 12 Hours) Vital Signs Temp Pulse Pulse Resp BP Pulse Ox 11/27/18 08:00 90 11/27/18 07:12 37.9 C H 88 24 137/89 98 11/27/18 03:35 36.5 C 92 H 20 144/95 H 94
[2018-11-27] MEDS: PILOCARPINE HCL 1% OP SOLN 15 ML BTL OPR SCH ×2 (15:37→20:01)
--- NOTE | 2018-11-27 17:18 | Hospitalist Progress Note ---
Date of Service November 27, 2018 Assessment & Plan (1) Acute dyspnea: Effusions greater than pulmonary edema with elements of both. Improving. (2) Hypoxia: As above, improving (3) Dilated cardiomyopathy: Idiopathic. See discussions on last admit. Most likely is a long- standing hypertensive cardiomyopathy, versus less likely idiopathic/post viral, versus least likely ischemic. She has not shown any acute signs or symptoms of ischemia warranting heart cath. We had discussed that this would probably be part of the work-up on a semielective basis as an outpatient, depending on the patient's status and the input of her skills caregiver. Continue Coreg and Entresto, given that she has a degree of rales, will give Lasix and follow (4) Pleural effusion: See above. Now status post thoracentesis. Appearing stable. (5) Essential hypertension: Continue current meds, if her pressures continue to run high we may be L to increase the Entresto further (6) Elevated troponin: Appears to represent wall strain versus demand ischemia. Appears asymptomatic in this regard (7) DVT prophylaxis: Lovenox (8) Leukocytosis: Nonspecific. On last admission she had a rather significant leukocytosis that improved without intervention either. White count coming down, CRP with a very mild nonspecific elevation. (9) Discharge planning issues: Would benefit from a hospital bed. Hopefully home in the next day or so depending on her breathing, certainly she would benefit best being able to be off of oxygen Subjective Seems to be doing better. No HPI review of systems obtainable from patient. Caregiver notes that she is appeared comfortable. Review of Systems Review of Systems: Unobtainable due to cognitive status Physical Exam Physical Exam: In general she is in no distress. HEENT normocephalic atraumatic mucous members are moist. Breathing is unlabored no accessory muscle use however she does still have bibasilar rales. No rhonchi no wheezes. Cardio is somewhat distant. Extremities show no cyanosis or clubbing. No acute focal neurologic deficits. Results & Data Vital Signs (Past 12 Hours) Vital Signs Temp Pulse Pulse Resp BP BP Pulse Ox 11/27/18 15:52 36.6 C 84 18 99/60 L 99 11/27/18 14:53 82 11/27/18 12:04 36.5 C 85 18 105/79 95 11/27/18 08:00 90 11/27/18 07:12 37.9 C H 88 24 137/89 98
[2018-11-27] MEDS: PARoxetine HCl 20 MG TAB PO SCH (20:03)
[2018-11-28] MEDS: HEPARIN SOD 5,000 UNIT/0.5 ML VIAL SQ SCH ×3 (04:57→20:11)
[2018-11-28] MEDS: METOPROLOL SUCC 25MG EXT REL TAB PO SCH (08:22)
[2018-11-28] MEDS: POTASSIUM CHLORIDE 20 MEQ TABCR PO SCH ×2 (08:22→20:10)
[2018-11-28] MEDS: SACUBITRIL-VALSARTAN 24-26 MG TAB PO SCH ×2 (08:22→20:09)
[2018-11-28] MEDS: ATORVASTATIN 10 MG TAB PO SCH (08:23)
[2018-11-28] MEDS: ASPIRIN 81 MG ECTAB PO SCH (08:23)
[2018-11-28] MEDS: SODIUM CHLORIDE 0.65% NA SOLN 45 ML (OCEAN) SCH ×2 (08:24→20:09)
[2018-11-28] MEDS: PREDNISOLONE ACETATE 1% OPR SCH ×2 (08:24→20:10)
[2018-11-28] MEDS: SODIUM CHLORIDE 5% (MURO) OP OINT 3.5 GM TUBE OP SCH ×2 (08:25→20:11)
[2018-11-28 09:09] LABS: BUN Creatinine Ratio 26.1 (10-20); Blood Urea Nitrogen 15 mg/dl (7-18); Carbon Dioxide 44 mmol/L (21-32); Chloride 92 mmol/L (98-107); Creatinine Clr Calc Pharmacy 69.9 ml/min; Est GFR (African American) 106.5; Est GFR (Non-African American) 91.9; Glucose 76 mg/dl (70-99); Sodium 137 mmol/L (136-145)
[2018-11-28] MEDS: acetaZOLAMIDE 250 MG TAB PO SCH ×2 (11:32→20:10)
--- NOTE | 2018-11-28 12:34 | Progress Note ---
DATE: 11/28/2018 Lexi Novoa was seen today. She was with one of her caretakers. Ms. Novoa appears to be quite stable actually. On 2 liters, she has 100% saturation. She had an x-ray done yesterday morning, which I think looks much improved. At this point, I would not do anything different. She is being treated for her congestive failure. At this point, I will continue to follow along, but I do not think we are going to intervene in the near future.
--- NOTE | 2018-11-28 14:06 | XRay Report ---
TWO VIEW CHEST CLINICAL HISTORY: Hypoxia. FINDINGS: AP and lateral chest radiographs are compared to study dated 11/27/2018. The AP views degrade d by patient rotation. The heart is enlarged there is atherosclerotic calcification of the thoracic a eliseo. There is pulmonary vascular congestion and interstitial edema. There are low lung volumes. Ther e are small pleural effusions with bibasilar atelectasis. There is no pneumothorax. The skeletal stru ctures are osteopenic. The bony thorax appears intact. IMPRESSION: 1. Cardiomegaly with evidence of congestive failure and interstitial edema. 2. Small pleural effusions. Electronically signed by: Bong Lozano M.D. 11/28/2018 2:05 PM
[2018-11-28] MEDS: PILOCARPINE HCL 1% OP SOLN 15 ML BTL OPR SCH ×2 (16:30→20:08)
--- NOTE | 2018-11-28 18:51 | Hospitalist Progress Note ---
Date of Service November 28, 2018 Assessment & Plan (1) Acute dyspnea: Effusions greater than pulmonary edema with elements of both. Improving, but somewhat difficult to wean off of oxygen. A chest x-ray was checked again today to see the status of the effusions or if there was pulmonary edema in audible on auscultation. It appears she does have a little bit more pulmonary edema than she would suggest at the bedside, additional Lasix was given. (2) Hypoxia: As above Discussed with caregiver the goal would be to try to get her off of the oxygen prior to discharge, but that she seems to be a bit difficult to wean, and at times whenever somebody has such a low ejection fraction they may need chronic oxygen simply related to the congestive heart failure itself. If we are unable to wean the oxygen with ongoing improvement in her pulmonary edema, then she may need home oxygen. (3) Dilated cardiomyopathy: Idiopathic. See discussions on last admit. Most likely is a long- standing hypertensive cardiomyopathy, versus less likely idiopathic/post viral, versus least likely ischemic. She has not shown any acute signs or symptoms of ischemia warranting heart cath. We had discussed that this would probably be part of the work-up on a semielective basis as an outpatient, depending on the patient's status and the input of her skills caregiver. Continue Coreg and Entresto, given that she has a degree of rales, will give Lasix and follow Prescription written for hospital bed so that she can sleep with head of bed elevated. (4) Pleural effusion: See above. Now status post thoracentesis. Appearing stable. (5) Essential hypertension: Continue current meds, if her pressures continue to run high we may need t o increase the Entresto further (6) Elevated troponin: Appears to represent wall strain versus demand ischemia. Appears asymptomatic in this regard (7) DVT prophylaxis: Lovenox (8) Leukocytosis: Nonspecific. On last admission she had a rather significant leukocytosis that improved without intervention either. White count coming down, CRP with a very mild nonspecific elevation. Follow periodically (9) Discharge planning issues: Would benefit from a hospital bed. Prescription written as above Hopefully home in the next day or so depending on her breathing, mostly depending on the ability to clear her lungs to wean her oxygen. Subjective No meaningful HPI or review of systems obtainable from patient. She seems to be doing better. Caregiver notes that she has had no issues. Review of Systems Review of Systems: All systems reviewed & are unremarkable except as noted in HPI & below Physical Exam Physical Exam: In general she is awake alert pleasant no distress. HEENT normocephalic atraumatic mucous membranes moist. Breathing is unlabored no accessory muscle use, shows no rales rhonchi or wheezes, but is somewhat diminished bibasilar. Good effort. Skin shows no rashes no pallor or icterus. She shows no new acute neurologic deficits. Results & Data Vital Signs (Past 12 Hours) Vital Signs Temp Pulse Pulse Resp BP Pulse Ox 11/28/18 16:00 79 11/28/18 15:17 36.4 C L 77 18 101/54 L 97 11/28/18 11:34 36.3 C L 87 16 115/80 100 11/28/18 07:35 75 11/28/18 07:07 36.7 C 78 18 126/86 99
[2018-11-28] MEDS: PARoxetine HCl 20 MG TAB PO SCH (20:09)
[2018-11-29] MEDS: HEPARIN SOD 5,000 UNIT/0.5 ML VIAL SQ SCH ×2 (05:36→14:36)
[2018-11-29 07:31] LABS: BUN Creatinine Ratio 20.6 (10-20); Calcium 8.7 mg/dl (8.5-10.1); Creatinine Clr Calc Pharmacy 53.3 ml/min; Est GFR (African American) 99.4; Est GFR (Non-African American) 85.8
[2018-11-29] MEDS: acetaZOLAMIDE 250 MG TAB PO SCH (07:49)
[2018-11-29] MEDS: ASPIRIN 81 MG ECTAB PO SCH (07:49)
[2018-11-29] MEDS: METOPROLOL SUCC 25MG EXT REL TAB PO SCH (07:49)
[2018-11-29] MEDS: SACUBITRIL-VALSARTAN 24-26 MG TAB PO SCH (07:50)
[2018-11-29] MEDS: ATORVASTATIN 10 MG TAB PO SCH (07:51)
[2018-11-29] MEDS: POTASSIUM CHLORIDE 20 MEQ TABCR PO SCH (07:52)
[2018-11-29] MEDS: SODIUM CHLORIDE 0.65% NA SOLN 45 ML (OCEAN) SCH (07:56)
[2018-11-29] MEDS: SODIUM CHLORIDE 5% (MURO) OP OINT 3.5 GM TUBE OP SCH (07:56)
[2018-11-29] MEDS: PREDNISOLONE ACETATE 1% OPR SCH (07:57)
--- NOTE | 2018-11-29 08:48 | Discharge Summary ---
Date of Service November 29, 2018 Admission HPI Per Admitting Provider decision maker is Misty hawk Skills - [phone] cell, [phone] work Full-time caregiver present at the bedside. Patient just went home yesterday. She was doing well, she ate food that the caregiver was quite sure was less than 400 mg of sodium. She went to bed and was just fine showed no signs of dyspnea etc. Then around 2 in the morning the caregiver noticed that she was very restless and was starting to look like she was breathing very labored. She checked her pulse ox and while it was difficult to get a good waveform she felt it was probably in the 70s or 80s, and summoned EMS. Whenever they were bringing her in it did appear reliable that she was hypoxic. No HPI review of systems obtainable from the patient. Principal Diagnosis hypertensive cardiomyopathy, CHF Discharge Exam Vitals noted and reviewed, as above GENERAL: no acute distress, cognitively impaired. HEAD: normocephalic atraumatic, some scalp alopecia ENT: sclerae normal, trachea midline, blindness RESP: normal work of breathing, slight crackles noted at the bases. CV: regular rate and rhythm, nl S1/S2 ABDOMEN: nondistended SKIN: no rashes or jaundice LE: trace edema bilaterally PSYCH: appropriate mood and affect Discharge Data Allergies Allergy/AdvReac Type Severity Reaction Status Date / Time Sulfa (Sulfonamide AdvReac Unknown Unknown Unverified 11/26/18 04:29 Antibiotics) Chlorine Allergy Mild UNKNOWN Uncoded 11/26/18 04:29 Consultations 11/26/18 07:22 ED Decision to Admit Stat 11/26/18 08:58 Consult Case Management - Discharge Planning Routine 11/26/18 09:57 Consult Thoracic Surgery Routine Hospital Course (1) Acute systolic CHF (congestive heart failure): 73 year old intellectually challenged female who was recently diagnosed with systolilc CHF and hypertensive cardiomyopathy who presented 12 hours after discharge brought by caregivers due to acute shortness of breath and hypoxia noted on home pulse ox. #Hypoxia Secondary to CHF, Pleural effusion. Resolved on discharge #Dilated cardiomyopathy, HFrEF: #Acute systolic CHF #Acute pulmonary edema Unclear of the etiology of cardiomyopathy. Possibly long-standing hypertensive cardiomyopathy, versus less likely idiopathic/post viral, versus least likely ischemic. No acute signs or symptoms of ischemia warranting heart cath. To be further addressed as outpatient -Continued Coreg and Entresto begun on last admission. - Diuresed well with IV Lasix. -Seen by heart failure clinic sap security consultant Darcie Cote here in hospital on day of discharge and to follow up with heart failure clinic as outpatient. #Bilateral pleural effusions noted on CT chest, -s/p thoracentesis. - diuresis helped in improvement as well. #Essential hypertension: -Continue current meds. #Elevated troponin: Appears to represent wall strain versus demand ischemia. Appears asymptomatic in this regard. #DVT prophylaxis: Lovenox given here. #Leukocytosis: Nonspecific, likely reactive given recent administration of prednisone due to allergic reaction to amlodipine. -Prescription written for hospital bed so that she can sleep with head of bed elevated, which will also be beneficial in positioning of body not feasible with ordinary bed, increased frequency of body position in order to alleviate pain. Clinical update given to pt's caregiver at bedside Paulina, discussed at length with cardiac rehabilitation services director, stable for home on day of discharge with plan for close outpatient follow up. (2) Discharge planning issues: (3) Essential hypertension: (4) Pleural effusion: (5) Dilated cardiomyopathy: (6) Acute dyspnea: (7) Mental retardation: Total Time Total Time Spent Total Time Spent (In Minutes): 30 Discharge Plan Discharge Items Patient Disposition: Home - Self-Care Reason For Visit: ACUTE ON CHRONIC HEART FAILURE Discharge Diagnosis: ACUTE ON CHRONIC HEART FAILURE Condition: Good Discharge Goals: Decrease discomfort, Increase independence and Improve nutritional status Activity: Per 'Additional Instructions' section Bathing: No limitations Non-emergency contact: Primary Care Provider and Adon Call non-emergency contact if: you have any medication questions and your symptoms worsen Follow-up/Referrals: Mary Colón CRNP [Primary Care Provider] - 12/03/18 9:30 am (Please, follow up at [facility] with Mary Colón's associate, Antonia COELHO, on ThursdayDecember 03 at 9:30 am. *If you need to change this appointment, call the office at [phone].) Diet: Heart Healthy Fluids: 1500ml (6 cups) Diet Texture: Pureed (blended smooth) Other Ambulatory Orders: Basic Metabolic Panel (Routine) Timeframe: 1 Week Location: Determined by Patient Ordered By: Poppy Davis Complete Blood Count with Diff (Routine) Timeframe: 1 Week Location: Determined by Patient Ordered By: Poppy Mackey Provider Instructions: You were admitted due to fluid overload on your lungs -- the reasons for this remain the same as when you were discharged -- you improved with additional water pills through your IV. We have consulted cardiac rehab for you so that your ongoing care will be managed more closely -- as discussed with Darcie Cote who saw you today, we would like you to take your water pill EVERY DAY, not as needed. This and a low salt diet should hopefully keep the fluid off your lungs. Continue to weigh yourself daily. Your Entresto is being CONTINUED -- I apologize for the confusing med list. Please continue taking the Entresto as prescribed. We also changed your metoprolol medication so that it can be taken ONCE A DAY instead. Potassium supplement is important to take while taking a water pill, as this can make you low in potassium. Otherwise, all other meds remain the same. Be Well A Susan OBANDO Prescriptions: New potassium chloride [Klor-Con M20] 20 mEq Tablet,Er Particles/Crystals 20 meq PO DAILY 30 Days Qty: 30 RF: 0 metoprolol succinate 25 mg Tablet Extended Release 24 Hr 25 mg PO QAM 30 Days Qty: 30 RF: 0 Continued multivitamin Tablet 1 tab PO QAM RF: 0 pilocarpine HCl 1 % Drops 1 drp OPR BID RF: 0 atorvastatin 10 mg Tablet 10 mg PO QAM RF: 0 paroxetine HCl 20 mg Tablet 20 mg PO PM RF: 0 Pamela 128 2 % Drops 1 drp OPHTHALMIC (EYE) BID RF: 0 sodium chloride [[place] Nasal] 0.65 % Aerosol,[place] 2 spray INTRANASAL BID RF: 0 vitamin B comp and C no.3 [id number] mg Capsule 1 cap PO BID RF: 0 prednisolone acetate (PF) 1 % Drops,Suspension 1 drp OPR BID RF: 0 Calcium Posture D 1 tab PO BID RF: 0 Probiotic Acidophilus 16 Bill 1 tab PO QAM RF: 0 Entresto 24-26 mg Tablet 1 tab PO BID Qty: 60 RF: 0 aspirin 81 mg tablet,delayed release (DR/EC) 81 mg PO DAILY Qty: 30 RF: 0 Changed furosemide [Lasix] 20 mg tablet 20 mg PO DAILY Qty: 30 RF: 0 Discontinued prednisone 20 mg tablet 20 mg PO UD RF: 0 metoprolol tartrate 25 mg Tablet 12.5 mg PO BID Qty: 15 RF: 0 Entresto 24-26 mg Tablet 1 tab PO BID RF: 0 Stand-Alone Forms: My [facility] Discharge Orders: Discharge Order (Routine); Ordered 11/29/18 Ordered By: Poppy Davis Admission Data Admit Date/Time: 11/26/18 07:33 Attending Provider: Nelly Lockhart Admit Provider: Brian Simms Primary Care Provider: Mary Colón Other Providers: Brian Simms ; Tha Meadows ; Parish Nagy Service: Telemetry Other Interventions: Discharge Summary Assessment (RN) Last Done: 11/29/18 12:16 Pending Studies at Discharge: No DC Date/Time DO NOT enter until pt leaves facility: 11/29/18 17:49 Supervising Physician Co-Signing Physician Notes Resident Physician Supervision Note: I independently interviewed and examined the patient and verified the biswas history and physical, reviewed labs and image studies, discussed the case with the resident Dr. Davsi and agree with the findings and care plan. Resident Activity Tracking Resident Involvement: Resident Care Provided Care Provided: Adult Hospital Medicine
[2018-11-29] MEDS ORDERED: FUROSEMIDE 20 MG TAB PO ONE (14:31)
--- NOTE | 2018-11-29 16:48 | Heart Failure Consultation ---
Date of Consultation November 29, 2018 Assessment & Plan (1) Acute systolic CHF (congestive heart failure): Patient appears slightly hypervolemic on her exam. I have recommended that she take the Lasix 20 mg daily instead of PRN as listed. We may need to increase her dose as an outpatient if she starts to gain weight. CHF protocol initiated through the office and special indicator was added to her record. Our nurses will have to call with a follow up appointment since she is leaving right now. We discussed the program and the nature of heart failure with the caregiver. She is on appropriate guideline based medications including Metoprolol and Entresto. May consider adding spironolactone as an outpatient. Will continue to titrate as heart rate and blood pressure allow. BMP/Mag will be ordered for next week. Recommend following a low sodium diet, less than 2,000 mg daily. Maintain fluid restriction of less than 1,500 mL per day. She does have a scale and the patient is ambulatory. Recommend daily standing weights. She was instructed to bring them to each appointment. She should call the office for weight gain of 2-3 lb overnight or 5 lb in one week. Anticipate the need for a general cardiology visit as this is a new onset cardiomyopathy. Will need to discuss with her returned case inspector and POA regarding how aggressive to work her up. Patient a [facility] since reportedly the caregiver to get POA information would be Misty Segal, . Her local returned case inspector is Sierra Alexander [phone], (2) Dilated cardiomyopathy: (3) Pleural effusion: (4) Essential hypertension: Supervising Physician Co-Signing Physician Notes A formal cardiology consultation was not requested by primary service. Airam Solomon PA-C of the Heart failure program was asked to assist in discharge planning. History of Present Illness Reason for Consultation: Heart failure discharge planning Attending Physician: Nelly Lockhart MD History of Present Illness Ms. Novoa is a 73 year old female who is a [facility]. She has no previous cardiac history. She is non-verbal with mental disability. Her caregiver, Rashida, is present at the bedside. Rashida states that the patiet has been having recent issues with hypertension and she has been seeing Adrianna Colón in the [facility] office. She was recently started on Lasix just last week. She state she started to notice increased swelling in her lower extremities as well as a significant area of bruising over the lateral aspect of the left knee. She denies any incident or trauma. The patient did not seem to be in pain. She developed labored breathing which prompted her first admission on 11/23/18. Patient had an echocardiogram which demonstrated a significant new onset cardiomyopathy with EF of 20-25%. Patient was started on low dose beta cherry and Entresto per guideline based recommendations. She was discharged on Lasix 20 mg PRN. Discharge weight was 147 lb on 11/25/18. Patient returned to the ED the following day with progressive dyspnea. She was found to be hypoxic with PO2 in the 70s and 80s. She was re-admitted. Dr. Meadows was consulted for a left thoracentesis, 100 mL. Patient is set for discharge today. We were consulted to see the patient to assist with discharge/transition planning. Allergies Allergy/AdvReac Type Severity Reaction Status Date / Time Sulfa (Sulfonamide AdvReac Unknown Unknown Unverified 11/26/18 04:29 Antibiotics) Chlorine Allergy Mild UNKNOWN Uncoded 11/26/18 04:29 Home Medications Home Medications Medication Instructions Recorded Confirmed Type Calcium Posture D 1 tab PO BID 11/23/18 11/26/18 History Pamela 128 1 drp OPHTHALMIC (EYE) BID 11/23/18 11/26/18 History Probiotic Acidophilus 16 Bill 1 tab PO QAM 11/23/18 11/26/18 History atorvastatin 10 mg PO QAM 11/23/18 11/26/18 History multivitamin 1 tab PO QAM 11/23/18 11/26/18 History paroxetine HCl 20 mg PO PM 11/23/18 11/26/18 History pilocarpine HCl 1 drp OPR BID 11/23/18 11/26/18 History prednisolone acetate (PF) 1 drp OPR BID 11/23/18 11/26/18 History sodium chloride [[place] Nasal] 2 spray INTRANASAL BID 11/23/18 11/26/18 History vitamin B comp and C no.3 1 cap PO BID 11/23/18 11/26/18 History Entresto 1 tab PO BID #60 tab 11/25/18 11/26/18 Rx aspirin 81 mg PO DAILY #30 tab 11/25/18 11/26/18 Rx furosemide [Lasix] 20 mg PO DAILY #30 tab 11/29/18 Rx metoprolol succinate 25 mg PO QAM 30 Days #30 tab 11/29/18 Rx potassium chloride [Klor-Con M20] 20 meq PO DAILY 30 Days #30 tab 11/29/18 Rx Patient History Medical History Essential hypertension Dilated cardiomyopathy Mental retardation (Chronic) Blind Hypertension Nonverbal Surgical History No pertinent past surgical history Family History Other Family history non-contributory Social History Preferred Language: Moroccan Communication Ability: Unable Communication Ability Comment: mentally 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 EOMs intact. Sclera anicteric. Face is symmetric. No perioral cyanosis. Mucous membranes moist. Neck: Supple, mild JVD 1/3 to the mandible Pulmonary: Normal respiratory effort, diminished lung sounds bilaterally Cardiac: Regular rate and rhythm. Normal S1 and S2, no gallops, no rubs, no murmurs Extremities: 2+ radial pulses bilaterally. 2+ posterior tibialis pulses bilaterally. 1-2+ pitting edema. No cyanosis or clubbing. Moderate ecchymosis noted over the lateral aspect of the knee, slightly tender. Medial lateral stability intact. Abdomen: Normal bowel sounds, soft, non-tender, no abdominal mass palpated Skin: Normal skin color, turgor, and pigmentation, no rash, no skin lesions Neurological: Patient is awake, alert, and responds to commands appropriately. Pleasant and cooperative. Normal movement in all 4 extremities. Results & Data Vital Signs (Past 12 Hours) Vital Signs Temp Pulse Pulse Resp BP BP Pulse Ox 11/29/18 16:00 86 11/29/18 15:20 36.5 C 99 H 24 117/85 97 11/29/18 12:16 37.4 C 86 18 128/75 110/82 96 11/29/18 11:41 37.4 C 86 18 128/75 96 11/29/18 08:00 90 11/29/18 07:18 36.5 C 85 20 117/79 99 11/29/18 05:40 36.7 C 90 18 110/82 94
== END 2018-11-29 17:49 | disposition home or self-care (01) | DRG 291 ==
LOC: ED 04:02 → SUATTDRO 07:33 → 2S 07:33 → 2E 19:37

== ENCOUNTER 2018-12-15 17:43 | Inpatient (IN) ==
--- NOTE | 2018-12-15 18:07 | Emergency Department Note ---
Entered by Helen Klein acting as a scribe for Cahrles Bray DO History of Present Illness General Chief complaint: Cardiac Assessment Stated complaint: TOES COLD/PURPLE, COUGH, DEEPENED BREATHING-HX CHF Time Seen by Provider: 12/15/18 17:52 Source: family History of Present Illness Provider complaint: shortness of breath Onset (ago): day(s) (several days) Location: chest Pain Consistency: + other (episode) Quality: + other (shortness of breath) Associated symptoms: + cough and + other (blue in feet and hands); no fever/chills (-fever) The patient is a 73 year old female who presents to the Emergency Room with complaints of shortness of breath that began several days prior to arrival. The family member stated that she had talked to the patient's flour worker today about the symptoms and they said to bring her to the Emergency Department. The family member states that the patient has blue color in hands and feet that had started a week ago, coughing, but denies fever. 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 Home Medications Home Medications Medication Instructions Recorded Confirmed Type Pamela 128 1 drp OPR BID 11/23/18 12/15/18 History atorvastatin 10 mg PO QAM 11/23/18 12/15/18 History multivitamin 1 tab PO QAM 11/23/18 12/15/18 History pilocarpine HCl 1 drp OPR BID 11/23/18 12/15/18 History prednisolone acetate (PF) 1 drp OPR BID 11/23/18 12/15/18 History sodium chloride [[place] Nasal] 2 spray INTRANASAL BID 11/23/18 12/15/18 History Entresto 1 tab PO BID #60 tab 11/25/18 12/15/18 Rx aspirin 81 mg PO DAILY #30 tab 11/25/18 12/15/18 Rx B.breve-L.acid-L.rham-S.thermo 2 tab PO DAILY 12/15/18 12/15/18 History [Probiotic] calcium carbonate-vitamin D3 1 tab PO BID 12/15/18 12/15/18 History [Calcium 600 + D(3)] furosemide [Lasix] 20 mg PO DAILY PRN 12/15/18 12/15/18 History metoprolol succinate 75 mg PO QAM 12/15/18 12/15/18 History vitamin B comp and C no.3 1 cap PO DAILY 12/15/18 12/15/18 History Allergies Allergy/AdvReac Type Severity Reaction Status Date / Time Sulfa (Sulfonamide AdvReac Unknown Unknown Unverified 12/15/18 18:55 Antibiotics) Chlorine Allergy Mild Unknown Uncoded 12/15/18 18:55 Past Med/Surg History Medical History Hyperlipidemia (Acute) Episodic mood disorder (Acute) Diet-controlled diabetes mellitus (Acute) Essential hypertension Dilated cardiomyopathy Mental retardation (Chronic) Blind Hypertension Nonverbal Surgical History No pertinent past surgical history Family History Other Family history non-contributory Social History Preferred Language: Yoruba Communication Ability: Unable Beliefs That Will Affect Care: None marital status: Single Current Living Situation: Other Current Living Situation Comment: lives with caregiver gin current occupational status: unemployed and disabled Feels Safe at Home: Yes Smoking Status: Never smoker Second Hand Exposure: No Hx Alcohol Use: No Hx Substance Use: No Review of Systems See HPI for pertinent positives & negatives. and A total of 10 systems reviewed and were otherwise negative Physical Exam Vital Signs Vital Signs - 24 hr 12/15/18 17:45 12/15/18 18:22 12/15/18 19:24 Sepsis Recent Fever Within 48 Hours No Sepsis New/Unexplained Change in Mental Status No Sepsis Action Taken by Nursing No Action Required Pulse Rate 83 Pulse Rate [Right Finger] 91 H 70 Respiratory Rate 20 19 26 H Blood Pressure 129/88 Blood Pressure [Left Arm] 130/107 H 134/108 H Blood Pressure Mean 101 Blood Pressure Mean [Left Arm] 114 116 Pulse Oximetry 96 94 92 Oxygen Delivery Method Room Air Room Air 12/15/18 21:02 Sepsis Recent Fever Within 48 Hours Sepsis New/Unexplained Change in Mental Status Sepsis Action Taken by Nursing Pulse Rate Pulse Rate [Right Finger] 81 Respiratory Rate 18 Blood Pressure Blood Pressure [Left Arm] 105/83 Blood Pressure Mean Blood Pressure Mean [Left Arm] 90 Pulse Oximetry 93 Oxygen Delivery Method GENERAL: Patient is awake and alert. She does not answer questions. She appears anxious. EYES: The conjunctivae are clear. There is clouding of both corneas. This appears chronic. EARS, NOSE, MOUTH AND THROAT: The nose is without any evidence of any deformity. Mucous membranes are moist tongue is midline NECK: The neck is nontender and supple. RESPIRATORY: Shallow respirations were noted. There were diminished breath sounds noted throughout. CARDIOVASCULAR: Regular rate and rhythm noted there no murmurs rubs or gallops normal S1 normal S2 GASTROINTESTINAL: The abdomen is soft. Bowel sounds are present in all quadrants. Abdomen is nontender MUSCULOSKELETAL/EXTREMITIES: There is no evidence of gross deformity full range of motion is noted in the hips and shoulders SKIN: There is no obvious evidence of any rash. Skin was warm and dry. Pulses were symmetric in both feet. Pedal edema was noted. There is ecchymosis noted over the lateral left leg as well as the left lateral chest wall. NEUROLOGIC: Patient is at her neurologic baseline according to the caregivers. Course 1753: The patient was evaluated in room A10, and a complete history and physical examination were performed. 2138: I discussed the case with Dr[facility] Hospitalist who accepted the patient for further evaluation. Administered Medications Discontinued Medications Furosemide (Lasix) 40 mg IV NOW STA Stop: 12/15/18 19:17 Last Admin: 12/15/18 19:24 Dose: 40 mg Documented by: [id number] Lorazepam (Ativan) 1 mg in 2 mls @ 2 mls/min IV NOW STA Stop: 12/15/18 22:34 Last Admin: 12/15/18 22:39 Dose: 2 mls/min Documented by: [id number] Medical Decision Making Differential Diagnosis Differential diagnosis: Etiologies such as infections, reactive airway disease, pneumonia, pneumothorax, COPD, CHF, cardiac ischemia, pulmonary embolism, musculoskeletal, gastrointestinal, as well as others were entertained. Medical Records Attestation: I reviewed the patient's medical records. Home Medications Current Medication List: was personally reviewed by me Laboratory Data Attestation: I reviewed the patient's lab results. Result diagrams: 12/15/18 17:59 12/16/18 05:25 Lab Results 12/15/18 12/15/18 12/15/18 Range/Units 17:59 17:59 17:59 WBC 13.42 H (4.8-10.8) K/uL RBC 4.35 (4.2-5.4) M/uL Hgb 14.4 (12.0-16.0) g/dL Hct 40.0 (37-47) % MCV 92.0 (80-100) fL MCH 33.1 (25-34) pg MCHC 36.0 (32-36) g/dL RDW Std Deviation 50.4 H (36.4-46.3) fL RDW Coeff of Yaneth 15.3 H (11.5-14.5) % Plt Count 298 (130-400) K/uL MPV 9.2 (7.4-10.4) fL Immature Gran % (Auto) 0.2 % Neut % (Auto) 75.9 % Lymph % (Auto) 16.1 % Hemphill % (Auto) 7.5 % Eos % (Auto) 0.2 % Baso % (Auto) 0.1 % Immature Gran # (Auto) 0.03 H (0.00-0.02) K/uL Neut # (Auto) 10.19 H (1.4-6.5) K/uL Lymph # (Auto) 2.16 (1.2-3.4) K/uL Hemphill # (Auto) 1.00 H (0.11-0.59) K/uL Eos # (Auto) 0.03 (0-0.5) K/uL Baso # (Auto) 0.01 (0-0.2) K/uL Absolute Nucleated RBC 0.08 H (0-0) K/uL Nucleated RBC % (auto) 0.6 % PT 11.7 (9.0-12.0) Seconds INR 1.2 H (0.9-1.1) APTT 25.1 (21.0-31.0) Seconds PTT Ratio 0.9 Sodium 127 L (136-145) mmol/L Potassium 4.9 (3.5-5.1) mmol/L Chloride 94 L (98-107) mmol/L Carbon Dioxide 24 (21-32) mmol/L Anion Gap 9.0 (3-11) BUN 19 H (7-18) mg/dl Creatinine 0.83 (0.6-1.2) mg/dl Est Cr Clr Drug Dosing 45.3 ml/min Est GFR ( Amer) 80.5 Est GFR (Non-Af Amer) 69.5 BUN/Creatinine Ratio 23.3 H (10-20) Glucose 126 H (70-99) mg/dl Calcium 9.2 (8.5-10.1) mg/dl Total Bilirubin 0.7 (0.2-1) mg/dl AST 77 H (15-37) U/L ALT 173 H (12-78) U/L Alkaline Phosphatase 213 H (45-117) U/L Troponin I 0.058 H* (0-0.045) ng/ml NT-Pro-B Natriuret Pep 04668 H (0-900) pg/ml Total Protein 6.7 (6.4-8.2) gm/dl Albumin 3.2 L (3.4-5.0) gm/dl Globulin 3.5 (2.5-4.0) gm/dl Albumin/Globulin Ratio 0.9 (0.9-2) Lipase 293 (73-393) U/L Imaging Data Radiologist's Impression: Radiology results as stated below per my review and the radiologist's interpretation: XR chest 1V portable CLINICAL HISTORY: Atypical chest pain COMPARISON STUDY: 11/28/2018 FINDINGS: The heart remains mildly enlarged. There is persistent elevation of the interstitium consistent with congestive failure/fluid overload. There is a possible small subpulmonic right pleural effusion. There is no lobar consolidation.[ IMPRESSION: Persistent cardiomegaly and radiographic evidence of congestive failure/fluid overload. Possible small subpulmonic right pleural effusion Electronically signed by: Pacheco Schaeffer M.D. 12/15/2018 6:59 PM ECG Data Attestation: I personally reviewed and interpreted this ECG as follows: Indication: SOB/dyspnea Rate (beats per minute): 89 Rhythm: normal sinus Findings: + ST depression (inferior and lateral) and + T-wave inversion Comparison ECG Date: from (11/26/2018) Change: the following changes noted (worsening ) Blood Pressure Blood Pressure Findings: Normal blood pressure MDM Narrative The patient is a 73-year-old female who presented to the emergency department with caregivers. She has a history of congestive heart failure. According to the caregiver she has had worsening lower extremity edema as well as difficulty breathing and cough. The patient's chest x-ray appeared to be consistent with volume overload. I discussed the patient's laboratory and radiographic studies with the caregivers. The patient was treated with IV Lasix in the emergency department. She was feeling somewhat improved on subsequent reevaluation. [facility] Given the EKG changes and the mildly elevated troponin it is possible this is related to ischemia. They did recommend a CT the chest to evaluate the findings on chest x-ray and to ensure this is not represent infection. The patient was reevaluated multiple times. The patient is to be evaluated by the hospitalist for inpatient management. Impression & Plan CHF (congestive heart failure), Elevated troponin, Abnormal ECG Discharge Plan Visit Data *Final* Discharge Date/Time: 12/15/18 22:21 Chief Complaint: Cardiac Assessment Stated Complaint: TOES COLD/PURPLE, COUGH, DEEPENED BREATHING-HX CHF ED Provider: Charles Bray Discharge Problem: CHF (congestive heart failure), Elevated troponin, Abnormal ECG Patient Disposition: Admitted As Inpatient Discharge Instructions Interventions: ED Discharge Assessment Last Done: 12/15/18 22:21 Discharge Problem: CHF (congestive heart failure) Qualifiers: Heart failure type: unspecified Heart failure chronicity: acute Qualified Code(s): I50.9 - Heart failure, unspecified The scribe's documentation has been prepared under my direction and personally reviewed by me in its entirety. I confirm that the note above accurately re flects all work, treatment, procedures, and medical decision making performed by me.
[2018-12-15 18:33] LABS: Basophils # (auto) 0.01 K/uL (0-0.2); Basophils % (auto) 0.1 %; Eosinophils # (auto) 0.03 K/uL (0-0.5); Eosinophils % (auto) 0.2 %; Hemoglobin 14.4 g/dL (12.0-16.0); Immature Granulocytes # (auto) 0.03 K/uL (0.00-0.02); Immature Granulocytes % (auto) 0.2 %; Lymphocytes # (auto) 2.16 K/uL (1.2-3.4); Lymphocytes % (auto) 16.1 %; Mean Platelet Volume 9.2 fL (7.4-10.4); Monocytes % (auto) 7.5 %; Neutrophils # (auto) 10.19 K/uL (1.4-6.5); Neutrophils % (auto) 75.9 %; Nucleated RBC # (auto) 0.08 K/uL (0-0); Nucleated RBC % (auto) 0.6 %; Platelet Count 298 K/uL (130-400); RDW Coefficient of Variation 15.3 % (11.5-14.5); RDW Standard Deviation 50.4 fL (36.4-46.3); Red Blood Count 4.35 M/uL (4.2-5.4); White Blood Count 13.42 K/uL (4.8-10.8)
[2018-12-15 18:47] LABS: Albumin Level 3.2 gm/dl (3.4-5.0); BUN Creatinine Ratio 23.3 (10-20); Calcium 9.2 mg/dl (8.5-10.1); Creatinine Clr Calc Pharmacy 45.3 ml/min; Est GFR (African American) 80.5; Est GFR (Non-African American) 69.5; Potassium 4.9 mmol/L (3.5-5.1)
[2018-12-15 18:48] LABS: INR 1.2 (0.9-1.1); Partial Thromboplastin Ratio 0.9; Partial Thromboplastin Time 25.1 Seconds (21.0-31.0); Prothrombin Time 11.7 Seconds (9.0-12.0)
[2018-12-15 18:53] LABS: Albumin Globulin Ratio 0.9 (0.9-2); Bilirubin,Total 0.7 mg/dl (0.2-1); Globulin 3.5 gm/dl (2.5-4.0); Total Protein 6.7 gm/dl (6.4-8.2); Troponin I 0.058 ng/ml (0-0.045)
--- NOTE | 2018-12-15 19:00 | XRay Report ---
XR chest 1V portable CLINICAL HISTORY: Atypical chest pain COMPARISON STUDY: 11/28/2018 FINDINGS: The heart remains mildly enlarged. There is persistent elevation of the interstitium consis tent with congestive failure/fluid overload. There is a possible small subpulmonic right pleural effu alaina. There is no lobar consolidation.[ IMPRESSION: Persistent cardiomegaly and radiographic evidence of congestive failure/fluid overload. P ossible small subpulmonic right pleural effusion Electronically signed by: Pacheco Schaeffer M.D. 12/15/2018 6:59 PM
[2018-12-15] MEDS ORDERED: FUROSEMIDE 40 MG/4 ML VIAL IV STA (19:16)
--- NOTE | 2018-12-15 22:14 | History & Physical Report ---
Date of Service December 15, 2018 Assessment & Plan (1) CHF exacerbation: 73 y/o F Hx hypertensive cardiomyopathy, chronic systolic CHF (25%), HTN, HLD, chronic trop elevation. blind, MR torri. Multiple recent admissions for volume overload. The pt required a therapeutic thoracentesis 11/26 due to BL effusions. She presents with worsening edema, a cough, labored breathing, weakness and a poor appetite. She cannot contribute to the HPI and was brought in by her exploration manager. Her exploration manager also reports that she appeared to have a purple discoloration to her extremities, however, this was not apparent on her arrival to the ER. Initial labs are notable for hyponatremia which is new and an elevated trop and leukocytosis which have decreased compared to recent values. A CXR was consistent with CHF. An EKG did not display any significant changes. She appeared to be comfortable lyng down at the time of evaluation by the medical service, however, she had already received IV Lasix. Her blood pressure, which is normally elevated, was curiously low. She has not had fevers. 1) Edema, cough, labored breathing, lethargy - CHF exacerbation vs pulmonary process. The pt will proceed for a CT chest as a definitive diagnosis is critical for management of her volume status and cannot be reached clinically. She is hyponatremic with an SBP of 100 which may be ominous if this is cardiogenic. We would want another echo if CHF is confirmed as her EF would presumably be worsening. Final decision on management is pending with results of CT. 2) Hyponatremia - we will fluid restrict and may need to provide IVF if this is due to PNM as opposed to CHF - BMP will be trended 3) HTN - takes Entresto which can be continued with parameters 4) HLD - Cont Atorvastatin 5) Regarding her elevated trop - this is chronic and lower than baseline, however, we will trend to r/o an acute precipitating event. 6) MR - severe - I discussed her code status and goals of care with her medical decision maker Haily Segal. She is very reasonable in her expectations. If the above presentation is related to end-stage CHF, hospice would be a consideration, however, we would need documentation from 2 MDs to withdraw aggressive care. For now, she remains a full code. Heparin prophylaxis provided. Total time for this admit including review of labs, meds, imaging, records - discussion with caregiver, medical proxy, ER attending - 45 min Present on Admission?: Yes History of Present Illness Chief Complaint: SOB, edema Primary Care Provider: MELITON Heath 73 y/o F Hx hypertensive cardiomyopathy, chronic systolic CHF (25%), HTN, HLD, chronic trop elevation. blind, MR wild. Multiple recent admissions for volume overload. The pt required a therapeutic thoracentesis 11/26 due to BL effusions. She presents with worsening edema, a cough, labored breathing, weakness and a poor appetite. She cannot contribute to the HPI and was brought in by her exploration manager. Her exploration manager also reports that she appeared to have a purple discoloration to her extremities, however, this was not apparent on her arrival to the ER. Initial labs are notable for hyponatremia which is new and an elevated trop and leukocytosis which have decreased compared to recent values. A CXR was consistent with CHF. An EKG did not display any significant changes. She appeared to be comfortable lyng down at the time of evaluation by the medical service, however, she had already received IV Lasix. Her blood pressure, which is normally elevated, was curiously low. She has not had fevers. PMH: 1) Hypertensive cardiomyopathy 2) Previous admissions with HTN urgency 3) MR Rachel wild 4) HTN 5) HLD 6) Chronic trop elevation 7) Chronic systolic CHF - EF 25% on echo 10/2018 8) Chronic leukocytosis Surgical: Cafe Manager did not report a surgical history Social: [facility], care-dependent, does not drink or smoke. She has lived with the same family for 20 years. Her primary exploration manager in 2017 and she is now looked after by her daughter. Family: No information available Allergies Allergy/AdvReac Type Severity Reaction Status Date / Time Sulfa (Sulfonamide AdvReac Unknown Unknown Unverified 12/15/18 18:55 Antibiotics) Chlorine Allergy Mild Unknown Uncoded 12/15/18 18:55 Home Medications Home Medications Medication Instructions Recorded Confirmed Type Pmaela 128 1 drp OPR BID 11/23/18 12/15/18 History atorvastatin 10 mg PO QAM 11/23/18 12/15/18 History multivitamin 1 tab PO QAM 11/23/18 12/15/18 History pilocarpine HCl 1 drp OPR BID 11/23/18 12/15/18 History prednisolone acetate (PF) 1 drp OPR BID 11/23/18 12/15/18 History sodium chloride [[place] Nasal] 2 spray INTRANASAL BID 11/23/18 12/15/18 History Entresto 1 tab PO BID #60 tab 11/25/18 12/15/18 Rx aspirin 81 mg PO DAILY #30 tab 11/25/18 12/15/18 Rx B.breve-L.acid-L.rham-S.thermo 2 tab PO DAILY 12/15/18 12/15/18 History [Probiotic] calcium carbonate-vitamin D3 1 tab PO BID 12/15/18 12/15/18 History [Calcium 600 + D(3)] furosemide [Lasix] 20 mg PO DAILY PRN 12/15/18 12/15/18 History metoprolol succinate 75 mg PO QAM 12/15/18 12/15/18 History vitamin B comp and C no.3 1 cap PO DAILY 12/15/18 12/15/18 History Past Med/Surg History Medical History Hyperlipidemia (Acute) Episodic mood disorder (Acute) Diet-controlled diabetes mellitus (Acute) Essential hypertension Dilated cardiomyopathy Mental retardation (Chronic) Blind Hypertension Nonverbal Surgical History No pertinent past surgical history Family History Other Family history non-contributory Social History Preferred Language: Bahamian Communication Ability: Unable Beliefs That Will Affect Care: None marital status: Single Current Living Situation: Legal Guardian current occupational status: unemployed and disabled Feels Safe at Home: Yes Smoking Status: Never smoker Second Hand Exposure: No Hx Alcohol Use: No Hx Substance Use: No Review of Systems Review of Systems: Cannot obtain from pt - basically brought in for signs of volume overload Physical Exam Physical Exam: General: Averbal, no distress - coughs occasionally ENT: No erythema or exudates, no thrush Eyes: TORIN, EOMI Head and neck: Normocephalic, atraumatic, No JVD, neck is supple. Chest/heart: Nontender, S1,2 faint, reg, no murmurs, no gallops Lungs: Exam is limited, crackles present at R base Abdomen: Nontender, nondistended, BS+ Neuro: Averbal, no unilateral weakness or acute asymmetry noted Musculoskeletal: No joint inflammation, muscle tenderness, FROM Skin: No acute rashes or ulcers Extremities: No clubbing, cyanosis, ++edema Results & Data Vital Signs (Past 12 Hours) Vital Signs Pulse Pulse Resp BP BP Pulse Ox 12/15/18 21:02 81 18 105/83 93 12/15/18 19:24 70 26 H 134/108 H 92 12/15/18 18:22 91 H 19 130/107 H 94 12/15/18 17:45 83 20 129/88 96
[2018-12-15] MEDS ORDERED: LORazepam 1 MG/2 ML VIAL IV STA (22:33)
--- NOTE | 2018-12-15 22:54 | CT Scan Report ---
CT chest wo con CLINICAL HISTORY: cough COMPARISON STUDY: 11/23/2018 CT DOSE: 591.78 mGy.cm TECHNIQUE: CT of the thorax was performed from the thoracic inlet to the lung bases. Images are revi ewed in the axial, sagittal, and coronal planes. IV contrast was not administered for this examinatio n. A dose lowering technique was utilized adhering to the principles of ALARA. FINDINGS: Thyroid: Imaged portions of the thyroid gland are normal in appearance. Thoracic aorta: There is dilatation of the ascending thoracic aorta which measures 41 mm. Heart: The heart is enlarged. There are coronary artery calcifications. Lungs and pleural spaces: There are moderate to large bilateral pleural effusions. Dependent airspace opacities are likely atelectatic. Mediastinum: There is no mediastinal lymphadenopathy. Mery: There is no evidence of pathologic hilar adenopathy given the limitations of a noncontrast stud y. Axilla: There is no evidence of pathologic axillary lymphadenopathy Upper abdomen: Partially visualized upper abdominal viscera is within normal limits. There is mild b adrian wall edema. Skeletal structures: There are no lytic or blastic osseous lesions. IMPRESSION: 1. Persistent CT evidence of congestive failure with cardiomegaly and moderate to large bilateral ple ural effusions 2. Dependent airspace opacities, likely atelectatic 3. Mild aneurysmal dilatation of the ascending thoracic aorta which measures 41 mm Electronically signed by: Pacheco Schaeffer M.D. 12/15/2018 10:53 PM
[2018-12-15] MEDS ORDERED: ACETAMINOPHEN 325 MG TAB PO PRN (23:09)
[2018-12-15] MEDS ORDERED: MAGNESIUM HYDROXIDE SUSP 30 ML UDC PO PRN (23:09)
[2018-12-15] MEDS ORDERED: ALUMINUM/MAGNESIUM SUSP 30 ML UDC PO PRN (23:09)
[2018-12-15] MEDS ORDERED: ONDANSETRON INJ 2 MG/ML 2 ML VIAL IV PRN (23:09)
[2018-12-15 23:56] LABS: BUN Creatinine Ratio 22.1 (10-20); Calcium 8.8 mg/dl (8.5-10.1); Creatinine Clr Calc Pharmacy 44.2 ml/min; Est GFR (African American) 80.5; Est GFR (Non-African American) 69.5; Potassium 4.2 mmol/L (3.5-5.1)
[2018-12-16 00:06] LABS: Troponin I 0.067 ng/ml (0-0.045)
[2018-12-16 06:11] LABS: BUN Creatinine Ratio 22.5 (10-20); Calcium 8.8 mg/dl (8.5-10.1); Est GFR (African American) 86.8; Est GFR (Non-African American) 74.9; Potassium 4.2 mmol/L (3.5-5.1)
[2018-12-16 06:17] LABS: Troponin I 0.072 ng/ml (0-0.045)
[2018-12-16] MEDS: FUROSEMIDE 40 MG in SYRINGE 0 ML IV SCH ×2 (10:05→16:59)
--- NOTE | 2018-12-16 11:31 | Palliative Care Consultation ---
Date of Consultation December 16, 2018 Assessment & Plan (1) Goals of care, counseling/discussion: -73 year old female patient with PMH intellectual disability, CHF, htn, blindness, and others, presented to the hospital yesterday with c/o increased LE edema. CXR and CT chest both consistent with cardiomegaly, pulmonary congestion and BL pleural effusions. BNP elevated at >17k. Last echo in October 2018 showed EF 20-25%, mild MR, mild TR, severe global hypokinesis of left ventricle and severely reduced LV systolic function. Repeat echo being ordered today to see if there is acute decompensation. Heart failure likely to be considered end-stage at this point. Apparently there was discussion with the patient's court- appointed medical decision maker, Misty Segal (DIRECT OF REAL ESTATE of [place]), patient's caregiver Ana Maria, and the ED physician regarding goals of care. If this is in fact acute decompensation of her heart failure, and she is deemed end-stage by two physicians, the goal may be to get patient home with hospice. Palliative care is consulted. -Met with patient and her caregiver, Ana Maria, in room 204. Ana Maria has been primary caregiver for the patient since July 2018. Prior to that, Ana Maria's mother (who in June 2018) took care of the patient for the last 20 years. Ana Maria is not patient's legal POA. Misty Segal is. -Ana Maria states that if in fact the decision is made to bring patient home on hospice, she would be willing to continue caring for the patient. We talked abou t what hospice would provide and what end of life care would potentially look like for this patient. -Spoke with resident physician, Dr. Franklin. He will likely order the repeat echo today. -If patient is to be changed to a DNR and comfort is the goal, two physicians need to sign off and communicate the decision with Misty Segal. -At this time, patient has no symptoms. She is blind and nonverbal. Unable to participate in any conversation. She apparently does have some signs that she is able to use to communicate with her caregivers. She is in no distress. -Will continue to follow as needed. (2) CHF (congestive heart failure): Heart failure chronicity: acute Heart failure type: unspecified Qualified Code(s): I50.9 - Heart failure, unspecified (3) Elevated troponin: (4) Intellectual disability: Supervising Physician Co-Signing Physician Notes Chart reviewed, patient seen and examined. Patient's link trainer at bedside PE: Patient asleep-received 1 mg Ativan overnight Respirations: Unlabored, lungs clear on exam CV: Regular rate Abdomen: Not distended Agree with above note, assessment and plan as per MELITON Jones-we will continue to assist caregivers with medical decision making and collaborate with case management regarding discharge planning. History of Present Illness Attending Physician: Darius Díaz MD History of Present Illness This 73 year old female patient with PMH intellectual disability, CHF, htn, blindness, and others, presented to the hospital yesterday with c/o increased LE edema. CXR and CT chest both consistent with cardiomegaly, pulmonary congestion and BL pleural effusions. BNP elevated at >17k. Last echo in October 2018 showed EF 20-25%, mild MR, mild TR, severe global hypokinesis of left ventricle and severely reduced LV systolic function. Repeat echo being ordered today to see if there is acute decompensation. Heart failure likely to be considered end-stage at this point. Apparently there was discussion with the patient's court- appointed medical decision maker, Misty Segal (DIRECT OF REAL ESTATE of [employer]), patient's caregiver Ana Maria, and the ED physician regarding goals of care. If this is in fact acute decompensation of her heart failure, and she is deemed end-stage by two physicians, the goal may be to get patient home with hospice. Palliative care is consulted. Thank you kindly for this consult. I will follow as needed. Allergies Allergy/AdvReac Type Severity Reaction Status Date / Time Sulfa (Sulfonamide AdvReac Unknown Unknown Unverified 12/15/18 18:55 Antibiotics) Chlorine Allergy Mild Unknown Uncoded 12/15/18 18:55 Home Medications Home Medications Medication Instructions Recorded Confirmed Type Pamela 128 1 drp OPR BID 11/23/18 12/15/18 History atorvastatin 10 mg PO QAM 11/23/18 12/15/18 History multivitamin 1 tab PO QAM 11/23/18 12/15/18 History pilocarpine HCl 1 drp OPR BID 11/23/18 12/15/18 History prednisolone acetate (PF) 1 drp OPR BID 11/23/18 12/15/18 History sodium chloride [Crump Nasal] 2 spray INTRANASAL BID 11/23/18 12/15/18 History Entresto 1 tab PO BID #60 tab 11/25/18 12/15/18 Rx aspirin 81 mg PO DAILY #30 tab 11/25/18 12/15/18 Rx B.breve-L.acid-L.rham-S.thermo 2 tab PO DAILY 12/15/18 12/15/18 History [Probiotic] calcium carbonate-vitamin D3 1 tab PO BID 12/15/18 12/15/18 History [Calcium 600 + D(3)] furosemide [Lasix] 20 mg PO DAILY PRN 12/15/18 12/15/18 History metoprolol succinate 75 mg PO QAM 12/15/18 12/15/18 History vitamin B comp and C no.3 1 cap PO DAILY 12/15/18 12/15/18 History Patient History Medical History Hyperlipidemia (Acute) Episodic mood disorder (Acute) Diet-controlled diabetes mellitus (Acute) Essential hypertension Dilated cardiomyopathy Mental retardation (Chronic) Blind Hypertension Nonverbal Surgical History No pertinent past surgical history Family History Other Family history non-contributory Social History Preferred Language: Guamanian Communication Ability: Impaired Beliefs That Will Affect Care: None marital status: Single Current Living Situation: Other Current Living Situation Comment: lives with caregiver gin current occupational status: unemployed and disabled Feels Safe at Home: Yes Smoking Status: Never smoker Second Hand Exposure: No Hx Alcohol Use: No Hx Substance Use: No Review of Systems Review of Systems: Unobtainable due to cognitive status Physical Exam Constitutional: + physical limitations; no acute distress Respiratory: normal respiratory effort, lungs clear to auscultation Auscultation: + diminished lung sounds Cardiovascular: RRR, no murmur, no edema Extremities: + edema (+1 feet and ankles) Gastrointestinal (Abdomen): Inspection/Auscultation: abdomen normal to inspection and normal bowel sounds; abdomen not distended Percussion/Palpation: abdomen soft Skin: feet are red with scabbed areas from patient scratching Neurologic: moves all extremities and awake Psychiatric: Orientation: + not oriented x 3 (patient nonverbal, hx severe intellectual disability) Results & Data Vital Signs (Past 12 Hours) Vital Signs Temp Pulse Pulse Resp BP BP Pulse Ox 12/16/18 10:53 36.4 C L 85 19 120/75 92 12/16/18 08:00 77 12/16/18 07:08 36.2 C L 80 20 132/70 98 12/16/18 03:14 36.6 C 88 24 128/87 93 Time Spent Midlevel 70 minutes with >50% of time spent at bedside with patient, caregiver, and MD discussing case and GOC.
[2018-12-16] MEDS: ENOXAPARIN INJ 40 MG/0.4 ML SYR SQ SCH (11:37)
[2018-12-16] MEDS: PILOCARPINE HCL 1% OP SOLN 15 ML BTL OPR SCH ×2 (11:37→20:38)
--- NOTE | 2018-12-16 15:00 | Family Medicine Progress Note ---
Date of Service December 16, 2018 Assessment & Plan (1) CHF exacerbation: Lexi is a 73-year-old female with a history of CHF with reduced ejection fraction (25%), hypertension, hyperlipidemia, chronic troponin increase, blindness, and nonverbal status with multiple admissions for pulmonary effusion with last thoracentesis 11/26 who developed acute weakness, fatigue, decreased p.o. intake, and a dusky/purple appearance to her feet yesterday. Acute on chronic congestive heart failure CXR and CTC both show moderate to large bilateral pleural effusions and findings consistent with congestive heart failure. She is recently admitted to the hospital and had required doses of up to Lasix 40 mg IV, but is maintained on a home Lasix dose of 20 mg daily which may be insufficient for her needs. Although she has had chronic decline, her current presentation history seems to represent a very acute event/decompensation. She has a BMP of 18,000, increased from 7000 on 11/26 Her troponins are mildly elevated (0.058, 0.067, 0.072) although this is actually lower than her recent baseline of [id number]. EKG daily, follow clinically, trend troponins. 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 Fluid restriction Continue diuresis as above BMP daily Hypertension Diuresis as above Continue Entresto, metoprolol Goals of care: Discussions between her caregiver Ana Maria, her medical power of attorney lawyer Misty (BRAND LEAD skills), and her outpatient care teams including doctor's office have recognized that she has had gradual decline with severe CHF. Her current episode represents an acute on chronic CHF exacerbation, however her normal baseline has continued to decline and she would benefit from enrollment in hospice services. Given her chronic disease and medical frailty CPR is likely to be highly traumatic and detrimental to her baseline, DNR/DNI status is likely appropriate given the above. This is been discussed with her caregiver and medical power of attorney lawyer: Given that she is a [place] this would require two physician evaluation. We will continue to discuss during this admission. Upper lipidemia: Atorvastatin 10 mg daily CODE STATUS: Full code Disposition: Ongoing Supervising Physician Co-Signing Physician Notes I saw the patient with the resident physician and confirmed biswas portion of the history physical exam. I also spoke at length with the caregiver who was present in the room. I agree with the impression and plan as noted above. Collateral information obtained today for the caregiver indicates that the patient was up and out yesterday and had what sounds to be a rather sudden onset of weakness. The caregiver states that her lower extremities (feet) were purple in coloration (although this was resolved on presentation to the emergency department). While earlier documentation indicates a more gradual onset of symptoms it is my understanding that there was more than an acuity to it yesterday. She was medicated with Ativan at some point overnight and has been fairly sleepy today. Acute on chronic systolic failure Continue IV diuresis Placing a Rousseau catheter given her significant urinary incontinence, decreased alertness, and continue diuresis -this was discussed with the primary caregiver for both patient comfort in preventing skin breakdown as well as better measurement of her urinary output. Obtained UA and urine culture when Rousseau is placed. Monitor BMP Try to hold additional doses of Ativan unless absolutely necessary Chest x-ray in a.m. Leukocytosis Mild and this appears somewhat chronic Recheck CBC in a.m. Troponin elevation This is also noted to be somewhat chronic Hyponatremia Improved and probably represents hypovolemic hyponatremia Monitor BMP Subjective Josphine is seen in the presence of her medical imaging technician today. Her medical imaging technician reports she was at a care program when she because very weak and was unable to stand. Her feet were also cold, and dusky/purple. She had not been having fevers but seemed to have suddenly worsened and had a decreased appetite. She was agitated overnight and recieved one dose of ativan. She has been very sleepy since. Opens her eyes for a few minutes before returning to sleep. Review of Systems Review of Systems: Unobtainable due to cognitive status Physical Exam Physical Exam: General: Arouses to voice, falls asleep after ~10 sec. NAD. Cooperative. HEENT: Atraumatic, normocephalic. Pulm: Diminished lung sounds. No increase work of breathing. No respiratory distress. Cardiac: RRR, -mrg. Radial pulses intact and symmetrical. Abdominal: Nontender, nondistended, soft. BS present. Extremities: Feet warm, red, mildly swollen bilaterally. Results & Data Vital Signs (Past 12 Hours) Vital Signs Temp Pulse Pulse Resp BP BP Pulse Ox 12/16/18 10:53 36.4 C L 85 19 120/75 92 12/16/18 07:08 36.2 C L 80 20 132/70 98 12/16/18 03:14 36.6 C 88 24 128/87 93 12/15/18 23:09 12/15/18 22:59 85 Pulse Ox 12/16/18 10:53 12/16/18 07:08 12/16/18 03:14 12/15/18 23:09 92 12/15/18 22:59 Resident Activity Tracking Resident Involvement: Resident Care Provided Care Provided: Adult Hospital Medicine
[2018-12-16 15:58] LABS: Appearance Urine Clear (Clear); Bilirubin Urine Negative (Negative); Blood Urine Negative (Negative); Color Urine Yellow; Glucose Urine UA Negative (Negative); Ketones Urine Negative (Negative); Leukocyte Esterase Urine Negative (Negative); Nitrite Urine Negative (Negative); Protein Urine Negative (Negative); Specific Gravity Urine 1.012 (1.000-1.030); Urobilinogen Urine Negative (Negative); pH Urine 6.5 (4.5-7.5)
[2018-12-16] MEDS: ATORVASTATIN 10 MG TAB PO SCH (16:58)
[2018-12-16] MEDS: METOPROLOL SUCC 25MG EXT REL TAB PO SCH (16:59)
[2018-12-16] MEDS: ASPIRIN 81 MG ECTAB PO SCH (16:59)
[2018-12-16] MEDS: SACUBITRIL-VALSARTAN 24-26 MG TAB PO SCH (20:38)
[2018-12-17 06:57] LABS: BUN Creatinine Ratio 20.5 (10-20); Calcium 8.1 mg/dl (8.5-10.1); Creatinine Clr Calc Pharmacy 56.6 ml/min; Est GFR (African American) 102.4; Est GFR (Non-African American) 88.4; Potassium 3.2 mmol/L (3.5-5.1)
--- NOTE | 2018-12-17 07:08 | XRay Report ---
XR chest 1V portable CLINICAL HISTORY: CHF COMPARISON STUDY: 12/15/2018 FINDINGS: The heart remains enlarged. There is radiographic evidence of mild congestive failure/fluid overload. Bilateral pleural effusions are suspected. There is no lobar consolidation.[ IMPRESSION: Radiographic evidence of mild congestive failure/fluid overload with suspected bilateral pleural effusions. No significant change from the prior study. Electronically signed by: Pacheco Schaeffer M.D. 12/17/2018 7:07 AM
[2018-12-17 07:20] LABS: Basophils # (auto) 0.01 K/uL (0-0.2); Basophils % (auto) 0.1 %; Eosinophils # (auto) 0.05 K/uL (0-0.5); Eosinophils % (auto) 0.4 %; Hematocrit (blood only) 39.2 % (37-47); Hemoglobin 13.6 g/dL (12.0-16.0); Immature Granulocytes # (auto) 0.04 K/uL (0.00-0.02); Immature Granulocytes % (auto) 0.4 %; Lymphocytes # (auto) 1.31 K/uL (1.2-3.4); Lymphocytes % (auto) 11.7 %; Mean Corpuscular Hgb Conc 34.7 g/dL (32-36); Mean Corpuscular Volume 94.5 fL (80-100); Monocytes # (auto) 0.92 K/uL (0.11-0.59); Monocytes % (auto) 8.2 %; Neutrophils # (auto) 8.84 K/uL (1.4-6.5); Neutrophils % (auto) 79.2 %; Platelet Count 259 K/uL (130-400); RDW Coefficient of Variation 15.5 % (11.5-14.5); RDW Standard Deviation 52.2 fL (36.4-46.3); Red Blood Count 4.15 M/uL (4.2-5.4); White Blood Count 11.17 K/uL (4.8-10.8)
[2018-12-17] MEDS: METOPROLOL SUCC 25MG EXT REL TAB PO SCH (08:17)
[2018-12-17] MEDS: PILOCARPINE HCL 1% OP SOLN 15 ML BTL OPR SCH ×2 (08:17→20:53)
[2018-12-17] MEDS: SACUBITRIL-VALSARTAN 24-26 MG TAB PO SCH ×2 (08:17→20:54)
[2018-12-17] MEDS: ATORVASTATIN 10 MG TAB PO SCH (08:17)
[2018-12-17] MEDS: FUROSEMIDE 40 MG in SYRINGE 0 ML IV SCH ×2 (08:17→16:40)
[2018-12-17] MEDS: ENOXAPARIN INJ 40 MG/0.4 ML SYR SQ SCH (08:17)
[2018-12-17] MEDS: ASPIRIN 81 MG ECTAB PO SCH (08:18)
--- NOTE | 2018-12-17 11:05 | Family Medicine Progress Note ---
Date of Service December 17, 2018 Assessment & Plan (1) CHF exacerbation: Lexi is a 73-year-old female with a history of CHF with reduced ejection fraction (25%), hypertension, hyperlipidemia, chronic troponin increase, blindness, and nonverbal status with multiple admissions for pulmonary effusion with last thoracentesis 11/26 who developed acute weakness, fatigue, decreased p.o. intake, and a dusky/purple appearance to her feet. Acute on chronic congestive heart failure CXR and CTC both show moderate to large bilateral pleural effusions and findings consistent with congestive heart failure. No change on repeat CXR 12/17. She is recently admitted to the hospital and had required doses of up to Lasix 40 mg IV, but is maintained on a home Lasix dose of 20 mg daily which may be insufficient for her needs. Although she has had chronic decline, her current presentation history seems to represent a very acute event/decompensation. She had a BMP acutely increased to 18,000 from 7,000 on 11/26. Her troponins are mildly elevated (0.058, 0.067, 0.072) although this is actually lower than her recent baseline of [id number]. Repeat EKG today shows sinus, no ST changes. Will not continue to trend trops at this time unless she develops ECG changes or new/changing clinical symptoms. 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 Lasix 40 mg IV twice daily 2+ L UOP today. Weight today 56.6kg, was 59.7 on admit - Cr holding at .6 today - Potassium decreased to 3.2 today. Tolerating PO well this morning. KCl oral 20meq Q4H x3 doses + Mg 400 qHS. 2g Mg IV for Mg 1.6 today. - BMP daily, AM Mg/Ph ordered Hyponatremia Likely in the setting of CHF retention, normalized today at 139 with delta 7 q24H Fluid restriction 1200cc on admit, normalized and may lift restriction today Continue diuresis as above BMP daily Hypertension Diuresis as above Continue Entresto, metoprolol Goals of care: Discussions between her caregiver Ana Maria, her medical power of commonwealth attorney Misty (S[employer]ES [employer] RETAIL MANAGEMENT RECRUITER skills), and her outpatient care teams including doctor's office have recognized that she has had gradual decline with severe CHF. Her current episode represents an acute on chronic CHF exacerbation, however her normal baseline has continued to decline and she would benefit from enrollment in hospice services. Given her chronic disease and medical frailty CPR is likely to be highly traumatic and detrimental to her baseline, DNR/DNI status is likely appropriate given the above. This is been discussed with her caregiver and medical power of commonwealth attorney: Given that she is a [place] this would require two physician evaluation/consent. We will continue to discuss during this admission If she is still here Misty with skills would like to have a care team meeting on Thursday. Hyperlipidemia: Atorvastatin 10 mg daily FENGI: Tolerating Heart Healthy Pureed Diet today with fluid restriction CODE STATUS: Full code Disposition: Ongoing (2) Elevated troponin: (3) CHF (congestive heart failure): (4) Intellectual disability: (5) Goals of care, counseling/discussion: Supervising Physician Co-Signing Physician Notes Patient seen and examined with Dr. Lomas. Agree with history, exam findings, assessment and plan of care as outlined. In brief, Ms Novoa is a 73 year old female wit hx of CHF (EF 25%), HTN, blind, multiple admissions for pulmonary effusions s/p thora 11/26 admitted with acute onset weakness, decrease PO, dusky feet. 1. Acute on chronic CHF. Bilateral large pleural effusions. Diuresing with Lasix 40mg IV BID. Cont home metoprolol ER 75mg, Entresto daily. 2. Hyponatremia. Improving with fluid restriction. Na 139 today. 3. HTN. Well controlled. 4. Leukocytosis. Chronic and stable. WBC 11. 17 5. Hypokalemia. K 3.2. Repleted. Dispo: Pending clinical improvement. Syl Elliott has been more alert/active today. She was able to go to the toilet with assistance, but quickly becomes sleepy and went back to bed. Tolerating some pureed foods and pills this morning. Nods breifly in response to small numbers of questions, but otherwise is not interactive and history is limited. Review of Systems Review of Systems: Unobtainable due to cognitive status Physical Exam Physical Exam: General: Arouses to voice, falls asleep after a few seconds. NAD. Cooperative. HEENT: Atraumatic, normocephalic. Pulm: Diminished lung sounds, but takes a few large breaths on command which are CTAB in upper quadrants, diminished in lower quadrants. No increase work of breathing. No respiratory distress. On room air. Cardiac: RRR, -mrg. Radial pulses intact and symmetrical. Extremities: Feet warm, minimally erythematous today, with 1+ edema of the ankles bilaterally. L calf with bruising/eccymosis. Results & Data Vital Signs (Past 12 Hours) Vital Signs Temp Pulse Pulse Resp BP Pulse Ox Pulse Ox 12/17/18 03:22 36.9 C 66 16 145/78 H 92 12/17/18 00:10 36.5 C 81 18 120/78 94 12/17/18 00:00 94 12/16/18 23:15 82 12/16/18 19:42 36.6 C 83 20 94/57 L 94 Resident Activity Tracking Resident Involvement: Resident Care Provided Care Provided: Adult Hospital Medicine (1) CHF (congestive heart failure) Heart failure chronicity: acute Heart failure type: unspecified Qualified Code(s): I50.9 - Heart failure, unspecified
[2018-12-17 11:16] LABS: Magnesium 1.6 mg/dl (1.8-2.4); Phosphorus 3.2 mg/dl (2.5-4.9)
--- NOTE | 2018-12-17 13:11 | Palliative Care Progress Note ---
Date of Service December 17, 2018 Assessment & Plan (1) Goals of care, counseling/discussion: -73 year old female patient with PMH intellectual disability, CHF, htn, blindness, and others, presented to the hospital yesterday with c/o increased LE edema. CXR and CT chest both consistent with cardiomegaly, pulmonary congestion and BL pleural effusions. BNP elevated at >17k. Last echo in October 2018 showed EF 20-25%, mild MR, mild TR, severe global hypokinesis of left ventricle and severely reduced LV systolic function. -No one at bedside this morning during visit. -She [place] and has a court appointed POA. She lives with her caregiver Ana Maria. Two physicians would need to sign off saying patient is end- stage and would recommend DNR. -If home with hospice is the goal, Ana Maria would be wlling to take patient home on hospice. -We will continue to follow as needed. (2) CHF (congestive heart failure): (3) Elevated troponin: (4) Intellectual disability: Subjective NO family at bedside this morning during my visit. VS stable. Physical Exam Constitutional: + physical limitations; no acute distress Respiratory: normal respiratory effort, lungs clear to auscultation Auscultation: + diminished lung sounds Cardiovascular: RRR, no murmur, no edema Extremities: + edema (+1 feet and ankles) Gastrointestinal (Abdomen): Inspection/Auscultation: abdomen normal to inspection and normal bowel sounds; abdomen not distended Percussion/Palpation: abdomen soft Neurologic: moves all extremities and awake Psychiatric: Orientation: + not oriented x 3 (patient nonverbal, hx severe intellectual disability) Results & Data Vital Signs (Past 12 Hours) Vital Signs Temp Pulse Pulse Resp BP BP Pulse Ox 12/17/18 10:45 36.5 C 67 21 111/75 94 12/17/18 08:00 82 12/17/18 07:06 36.6 C 81 16 140/86 91 12/17/18 03:22 36.9 C 66 16 145/78 H 92 Time Spent Midlevel 15 minutes with >50% of time spent at bedside with patient and IDT discussing plan. (1) CHF (congestive heart failure) Heart failure chronicity: acute Heart failure type: unspecified Qualified Code(s): I50.9 - Heart failure, unspecified
[2018-12-17] MEDS: POTASSIUM CHLORIDE 20 MEQ TABCR PO SCH ×3 (13:14→20:53)
[2018-12-17] MEDS: MAGNESIUM SULFATE / D5W 1 GM/100 ML BAG IV SCH ×2 (16:41→17:39)
[2018-12-17] MEDS ORDERED: MAGNESIUM OXIDE 400 MG TAB PO SCH (21:00)
[2018-12-18 07:32] LABS: BUN Creatinine Ratio 24.4 (10-20); Calcium 8.2 mg/dl (8.5-10.1); Creatinine Clr Calc Pharmacy 53.4 ml/min; Est GFR (African American) 100.9; Magnesium 2.1 mg/dl (1.8-2.4); Potassium 3.9 mmol/L (3.5-5.1)
[2018-12-18] MEDS: SACUBITRIL-VALSARTAN 24-26 MG TAB PO SCH (07:49)
[2018-12-18] MEDS: PILOCARPINE HCL 1% OP SOLN 15 ML BTL OPR SCH (07:50)
[2018-12-18] MEDS: ENOXAPARIN INJ 40 MG/0.4 ML SYR SQ SCH (07:50)
[2018-12-18] MEDS: ASPIRIN 81 MG ECTAB PO SCH (07:50)
[2018-12-18] MEDS: METOPROLOL SUCC 25MG EXT REL TAB PO SCH (07:50)
[2018-12-18] MEDS: ATORVASTATIN 10 MG TAB PO SCH (07:50)
--- NOTE | 2018-12-18 07:55 | Family Medicine Progress Note ---
Date of Service December 18, 2018 Assessment & Plan (1) CHF exacerbation: Lexi is a 73-year-old female with a history of CHF with reduced ejection fraction (25%), hypertension, hyperlipidemia, chronic troponin increase, blindness, and nonverbal status with multiple admissions for pulmonary effusion with last thoracentesis 11/26 who developed acute weakness, fatigue, decreased p.o. intake, and a dusky/purple appearance to her feet. Acute on chronic congestive heart failure CXR and CTC both show moderate to large bilateral pleural effusions and findings consistent with congestive heart failure. No change on repeat CXR 12/17. She is recently admitted to the hospital and had required doses of up to Lasix 40 mg IV, but is maintained on a home Lasix dose of 20 mg daily which may be insufficient for her needs. Although she has had chronic decline, her current presentation history seems to represent a very acute event/decompensation. She had a BMP acutely increased to 18,000 from 7,000 on 11/26. Her troponins are mildly elevated (0.058, 0.067, 0.072) although this is actually lower than her recent baseline of [id number]. Repeat EKG today shows sinus, no ST changes. Will not continue to trend trops at this time unless she develops ECG changes or new/changing clinical symptoms. Continue STUBBER metoprolol succinate 75 mg every morning, Entresto 1 tab twice daily Continue Lasix 40 mg IV twice daily 2+ L UOP today. Weight on admssion 59.7 -> 56.6 ->55.1 - Cr holding at .66 today - Potassium improving 3.9 today. Tolerating PO well this morning. KCl oral 20meq Q4H x2 doses - Mag reasonable 2.1 replete as indicated - PO4 2.0 -> 2X k phos neutral tabs - BMP daily, AM Mg/Ph ordered Hyponatremia Likely in the setting of CHF retention normalized 12/17, 140 today Fluid restriction 1200cc on admit, normalized and may lift restriction today Continue diuresis as above BMP daily Hypertension Diuresis as above Continue Entresto, metoprolol Goals of care: Discussions between her caregiver Ana Maria, her medical power of state's attorney Misty (HEEL LAYER skills), and her outpatient care teams including doctor's office have recognized that she has had gradual decline with severe CHF. Her current episode represents an acute on chronic CHF exacerbation, however her normal baseline has continued to decline and she would benefit from enrollment in hospice services. Given her chronic disease and medical frailty CPR is likely to be highly traumatic and detrimental to her baseline, DNR/DNI status is likely appropriate given the above. This is been discussed with her caregiver and medical power of state's attorney: Given that she is a [place] this would require two physician evaluation/consent. We will continue to discuss during this admission If she is still here Misty with skills would like to have a care team meeting on Thursday. Hyperlipidemia: Atorvastatin 10 mg daily FENGI: Tolerating Heart Healthy Pureed Diet today with fluid restriction CODE STATUS: Full code Disposition: Pending conversation with patient's caregiver (2) Elevated troponin: (3) CHF (congestive heart failure): (4) Intellectual disability: (5) Goals of care, counseling/discussion: Supervising Physician Co-Signing Physician Notes see discharge summary from same day. Subjective Patient sitting up in bed this morning in no acute distress, attempted to communicate with the patient and she responded. Per nursing no acute concerns overnight, asked nursing team to pages when medical biller coder arrives. Physical Exam Physical Exam: General: Arouses to voice, falls asleep after a few seconds. NAD. Cooperative. HEENT: Atraumatic, normocephalic. Pulm: Diminished lung sounds, but takes a few large breaths on command which are CTAB in upper quadrants, diminished in lower quadrants. No increase work of breathing. No respiratory distress. On room air. Cardiac: RRR, -mrg. Radial pulses intact and symmetrical. Extremities: Feet warm, minimally erythematous today, with 1+ edema of the ankles bilaterally. L calf with bruising/eccymosis. Results & Data Vital Signs (Past 12 Hours) Vital Signs Temp Pulse Pulse Resp BP Pulse Ox 12/18/18 07:08 36.9 C 74 17 120/85 97 12/18/18 03:20 37.0 C 70 16 123/75 96 12/18/18 00:22 70 12/17/18 23:37 36.8 C 70 17 105/66 92 Laboratory Results 12/18/18 12/17/18 Range/Units 06:21 05:59 Sodium 140 (136-145) mmol/L Potassium 3.9 D (3.5-5.1) mmol/L Chloride 99 (98-107) mmol/L Carbon Dioxide 40 H (21-32) mmol/L Anion Gap 1.0 L (3-11) BUN 16 (7-18) mg/dl Creatinine 0.66 (0.6-1.2) mg/dl Est Cr Clr Drug Dosing 53.4 ml/min Est GFR ( Amer) 100.9 Est GFR (Non-Af Amer) 87.0 BUN/Creatinine Ratio 24.4 H (10-20) Glucose 89 (70-99) mg/dl Calcium 8.2 L (8.5-10.1) mg/dl Phosphorus 2.0 L D 3.2 (2.5-4.9) mg/dl Magnesium 2.1 1.6 L (1.8-2.4) mg/dl Medications Administered Current Inpatient Medications Acetaminophen (Tylenol) 650 mg PO Q4H PRN PRN Reason: Pain or Fever Stop: 01/14/19 23:08 Last Admin: 12/18/18 01:07 Dose: 650 mg Documented by: Al Hydrox/Mg Hydrox/Simethicone (Maalox) 15 ml PO Q4H PRN PRN Reason: Dyspepsia Stop: 01/14/19 23:08 Aspirin (Ecotrin Ectab) 81 mg PO DAILY [facility] Stop: 01/15/19 08:59 Last Admin: 12/18/18 07:50 Dose: 81 mg Documented by: Atorvastatin Calcium (Lipitor) 10 mg PO QAM SYDNEY Stop: 01/15/19 08:59 Last Admin: 12/18/18 07:50 Dose: 10 mg Documented by: Enoxaparin Sodium (Lovenox) 40 mg SQ Q24H SYDNEY Stop: 01/15/19 08:59 Last Admin: 12/18/18 07:50 Dose: 40 mg Documented by: Furosemide 40 mg/ Syringe 4 mls @ 4 mls/min IV [id number] SYDNEY Stop: 01/15/19 08:59 Last Admin: 12/17/18 16:40 Dose: 4 mls/min Documented by: Magnesium Hydroxide (Milk Of Magnesia) 30 ml PO Q12H PRN PRN Reason: Constipation Stop: 01/14/19 23:08 Magnesium Oxide (Mag-Ox) 400 mg PO HS [facility] Stop: 01/16/19 20:59 Last Admin: 12/17/18 20:53 Dose: 400 mg Documented by: Metoprolol Succinate (Toprol Xl) 75 mg PO QAM [facility] Stop: 01/15/19 08:59 Last Admin: 12/18/18 07:50 Dose: 75 mg Documented by: Ondansetron HCl (Zofran) 4 mg IV Q6H PRN PRN Reason: Nausea Stop: 01/14/19 23:08 Pilocarpine HCl (Isopto Carpine 1% Opn Soln) 1 drops OPR BID [facility] Stop: 01/15/19 08:59 Last Admin: 12/18/18 07:50 Dose: 1 drops Documented by: Potassium Chloride (Klor-Con M20) 20 meq PO Q4H [facility] Stop: 12/18/18 12:01 Potassium Phosphate (Phospha 250 Neutral 155-852-130 Mg) 1 tab PO BID [facility] Stop: 12/18/18 21:01 Sacubitril/Valsartan (Entresto 24/26mg) 2 tab PO BID [facility] Stop: 01/15/19 20:59 Last Admin: 12/18/18 07:49 Dose: 2 tab Documented by: Resident Activity Tracking Resident Involvement: Resident Care Provided Care Provided: Adult Hospital Medicine (1) CHF (congestive heart failure) Heart failure chronicity: acute Heart failure type: unspecified Qualified Code(s): I50.9 - Heart failure, unspecified
[2018-12-18] MEDS: FUROSEMIDE 40 MG in SYRINGE 0 ML IV SCH (08:24)
[2018-12-18] MEDS ORDERED: POT PHOSPHATE MONOBASIC W/ SOD TAB PO SCH (09:00)
[2018-12-18] MEDS: POTASSIUM CHLORIDE 20 MEQ TABCR PO SCH ×2 (09:01→11:50)
--- NOTE | 2018-12-18 12:25 | Discharge Summary ---
Date of Service December 18, 2018 Admission HPI Per Admitting Provider 73 y/o F Hx hypertensive cardiomyopathy, chronic systolic CHF (25%), HTN, HLD, chronic trop elevation. blind, MR wild. Multiple recent admissions for volume overload. The pt required a therapeutic thoracentesis 11/26 due to BL effusions. She presents with worsening edema, a cough, labored breathing, weakness and a poor appetite. She cannot contribute to the HPI and was brought in by her relationship assoc. Her relationship assoc also reports that she appeared to have a purple discoloration to her extremities, however, this was not apparent on her arrival to the ER. Initial labs are notable for hyponatremia which is new and an elevated trop and leukocytosis which have decreased compared to recent values. A CXR was consistent with CHF. An EKG did not display any significant changes. She appeared to be comfortable lyng down at the time of evaluation by the medical service, however, she had already received IV Lasix. Her blood pressure, which is normally elevated, was curiously low. She has not had fevers. 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 She has lived with the same family for 20 years. Her primary relationship assoc in 2018 and she is now looked after by her daughter. Family: No information available Admission Exam Per Admitting Provider General: Averbal, no distress - coughs occasionally ENT: No erythema or exudates, no thrush Eyes: TORIN, EOMI Head and neck: Normocephalic, atraumatic, No JVD, neck is supple. Chest/heart: Nontender, S1,2 faint, reg, no murmurs, no gallops Lungs: Exam is limited, crackles present at R base Abdomen: Nontender, nondistended, BS+ Neuro: Averbal, no unilateral weakness or acute asymmetry noted Musculoskeletal: No joint inflammation, muscle tenderness, FROM Skin: No acute rashes or ulcers Extremities: No clubbing, cyanosis, ++edema Principal Diagnosis Acute on chronic CHF exacerbation Discharge Exam General: Arouses to voice. NAD. Cooperative. HEENT: Atraumatic, normocephalic. Pulm: Diminished lung sounds, but takes a few large breaths on command which are CTAB in upper quadrants, diminished in lower quadrants. No increase work of breathing. No respiratory distress. On room air. Cardiac: RRR, -mrg. Radial pulses intact and symmetrical. Extremities: Feet warm, minimally erythematous today, with 1+ edema of the ankles bilaterally. L calf with bruising/ecchymosis. Discharge Data Allergies Allergy/AdvReac Type Severity Reaction Status Date / Time Sulfa (Sulfonamide AdvReac Unknown Unknown Unverified 12/15/18 18:55 Antibiotics) Chlorine Allergy Mild Unknown Uncoded 12/15/18 18:55 Consultations 12/15/18 20:30 ED Decision to Admit Stat 12/16/18 07:39 Consult Palliative Care Routine Ordered Studies 12/15/18 22:32 CT chest wo con Stat Hospital Course (1) CHF exacerbation: Lexi is a 73-year-old female with a history of CHF with reduced ejection fraction (25%), hypertension, hyperlipidemia, chronic troponin increase, blindness, and nonverbal status with multiple admissions for pulmonary effusion with last thoracentesis 11/26 who developed acute weakness, fatigue, decreased p.o. intake, and a dusky/purple appearance to her feet. MED CHANGES: Increased lasix from 20 to 40 mg q day, started po kcl 20meq bid TO DO: Obtain outpt BMP monitor cr and potassium levels Acute on chronic congestive heart failure She was recently admitted to the hospital and had required doses of up to Lasix 40 mg IV, but is maintained on a home Lasix dose of 20 mg daily which may be insufficient for her needs. Although she has had chronic decline, her current presentation history seems to represent a very acute event/decompensation. She had a BMP acutely increased to 18,000 from 7,000 on 11/26. Her troponins are mildly elevated (0.058, 0.067, 0.072) although this is actually lower than her recent baseline of 0.1140.285. Repeat EKG today shows sinus, no ST changes. Will not continue to trend trops at this time unless she develops ECG changes or new/changing clinical symptoms.CXR and CTC both show moderate to large bilateral pleural effusions and findings consistent with congestive heart failure. No change on repeat CXR 12/17. Patient was maintained on metoprolol succinate 75 mg every morning, Entresto 1 tab twice daily. While hospitalized she received Lasix 40 mg IV bid. On admission she weighed 59.7 kg on discharge she weighed 55.1, her creatinine has been holding stable throughout admission. BMP was obtained daily and potassium and other electrolytes were repleted as indicated. Patient will be discharged on 40 mg of PO Lasix daily, and 20 mEq potassium twice daily Hyponatremia Likely secondary to CHF exacerbation normalized on 12/17/2018, initially patient was placed on a 1200 cc fluid restriction, upon normalization of her hyponatremia the restriction was lifted. Daily BMPs were obtained as described above Hypertension stable. Continue Entresto, metoprolol. Increased home po lasix to 40mg. Goals of care: Discussions between her caregiver Ana Maria, her medical power of commonwealth attorney Misty (INSTRUCTOR ROBOTICS skills), and her outpatient care teams including doctor's office have recognized that she has had gradual decline with severe CHF. Her current episode represents an acute on chronic CHF exacerbation, however her normal baseline has continued to decline and she would benefit from enrollment in hospice services. Given her chronic disease and medical frailty CPR is likely to be highly traumatic and detrimental to her baseline, DNR/DNI status is likely appropriate given the above. This is been discussed with her caregiver and medical power of commonwealth attorney: Given that she is a [place] this would require two physician evaluation/consent. Recommend patient follow-up with her primary care provider and palliative care team for further discussions as an outpatient Hyperlipidemia: Atorvastatin 10 mg daily. FENGI:Heart Healthy Pureed Diet CODE STATUS: Full code Disposition: Discharge home to relationship assoc, patient is [place] (2) Elevated troponin: (3) CHF (congestive heart failure): (4) Intellectual disability: (5) Goals of care, counseling/discussion: Total Time Total Time Spent Total Time Spent (In Minutes): >30 min Discharge Plan Discharge Items Patient Disposition: Home - Self-Care Reason For Visit: CHF EXACERBATION Discharge Diagnosis: Acute on chronic congestive heart failure exacerbation Discharge Goals: Therapeutic intervention Activity: Per 'Additional Instructions' section Non-emergency contact: Primary Care Provider Call non-emergency contact if: you have any medication questions, your pain is concerning for you and your temperature is above 101.5 Follow-up/Referrals: Mary Colón CRNP [Primary Care Provider] - Diet: Carb Consistent or DM2 and Heart Healthy Addtl Provider Instructions: Care instructions: You were admitted to [facility] for treatment of acute on chronic exacerbation of CHF. A discharge summary will be sent to your primary care physician to ensure continuity of care.Please bring this discharge summary with you to your next office appointment so that your provider can review it at that time. Prescriptions sent to [facility] Follow-up appointments: - Keep all your follow-up appointments as already scheduled. If you cannot make an appointment, notify your provider. - Please call to request a follow-up appointment with your primary care physician within one week of discharge. Please let us know if you are unable to obtain an appointment Follow-up labs: - Please go to a lab nearest you and obtain the requested lab work. Please have this completed at least 3 hours before your doctor\[id number] appointment (or the day before your appointment if possible). Medications: - Your medication list has been reviewed and reconciled upon discharge to ensure accuracy and continuity of care. - You are provided with a list of all your current medications at this time. Please review this list closely and make note of any changes. - Please take all of your medications exactly as prescribed. - Tell your primary care provider if you cannot afford your medications. - Call your primary care provider if you are having any side effects or any other problems. - Call your primary care provider before taking any over the counter medications or supplements, including herbals and vitamins, because some of these may interact with your current medications and/or make your symptoms worse. Symptoms: Please call your primary care provider for symptoms including, but not limited to: fevers (temperatures greater than 100.4), chills, intractable nausea or vomiting, diarrhea, rash, shortness of breath, bleeding, pain, or if you experience any worsening of the symptoms that brought you to the hospital. For EMERGENCY and VERY SERIOUS health-related issues, such as chest pain, debbie rtness of breath, or sudden onset of the symptoms that brought you to the hospital, you may need to call 911 or go directly to the Emergency Room It has been our privilege to take care of you during your hospital stay. And Above All Else Fell Better! Best Wishes, Adan Franco MD PGY1 Resident, Family & Community Medicine [facility] [place], [address] MC: [address] [place] [address], [place] [address] Prescriptions: New potassium chloride 20 mEq tablet extended release 20 meq PO BID 30 Days Qty: 60 RF: 0 furosemide [Lasix] 40 mg tablet 40 mg PO DAILY 30 Days Qty: 30 RF: 0 Continued multivitamin Tablet 1 tab PO QAM RF: 0 pilocarpine HCl 1 % Drops 1 drp OPR BID RF: 0 atorvastatin 10 mg Tablet 10 mg PO QAM RF: 0 Pamela 128 2 % Drops 1 drp OPR BID RF: 0 sodium chloride [Joslin Nasal] 0.65 % Aerosol,Viking 2 spray INTRANASAL BID RF: 0 prednisolone acetate (PF) 1 % Drops,Suspension 1 drp OPR BID RF: 0 Entresto 24-26 mg Tablet 1 tab PO BID Qty: 60 RF: 0 aspirin 81 mg tablet,delayed release (DR/EC) 81 mg PO DAILY Qty: 30 RF: 0 calcium carbonate-vitamin D3 [Calcium 600 + D(3)] 600 mg(1,500mg) -400 unit Tablet 1 tab PO BID RF: 0 Probiotic 3 billion cell Tablet,Chewable 2 tab PO DAILY RF: 0 metoprolol succinate 25 mg tablet extended release 24 hr 75 mg PO QAM RF: 0 vitamin B comp and C no.3 88-71-34-5-300 mg Capsule 1 cap PO DAILY RF: 0 Discontinued furosemide [Lasix] 20 mg tablet 20 mg PO DAILY PRN (Reason: Fluid Retention) RF: 0 Stand-Alone Forms: [facility] Discharge Orders: Discharge Order (Routine); Ordered 12/18/18 Ordered By: Adan Franco Admission Data Admit Date/Time: 12/15/18 22:02 Attending Provider: Stephanie Arechiga Admit Provider: Darius Díaz Primary Care Provider: Mary Colón Other Providers: Darius Díaz ; Yadi Solis Service: Telemetry Other Interventions: Discharge Summary Assessment (RN) Last Done: 12/18/18 16:15 DC Date/Time DO NOT enter until pt leaves facility: 12/18/18 17:11 Supervising Physician Co-Signing Physician Notes Patient seen and examined with Dr. Franco. Agree with history, exam findings, assessment and plan of care as outlined. In brief, Ms Novoa is a 73 year old female with hx of CHF (EF 25%), HTN, blind, multiple admissions for pulmonary effusions s/p thora 11/26 admitted with acute onset weakness, decrease PO, dusky feet. Awake and sitting up in the chair. Nods appropriate to questions. Breathing comfortably on room air. 1. Acute on chronic CHF. Bilateral large pleural effusions on admission, now appearing euvolemic (discharge weight 55.kg). Diuresed with Lasix 40mg IV BID. Will be discharged on po lasix 40mg and oral potassium repletion. Cont home metoprolol ER 75mg, Entresto daily. 2. Hyponatremia. Resolved. 3. HTN. Well controlled. 4. Leukocytosis. Chronic and stable. Dispo: discharge home today. I personally spent 40 minutes discharge planning for this patient. Resident Activity Tracking Resident Involvement: Resident Care Provided Care Provided: Adult Hospital Medicine
== END 2018-12-18 17:11 | disposition home or self-care (01) | DRG 292 ==
LOC: ED 17:43 → 2E 22:02 → SUATTDRO 22:02 → 2E 22:21